=== PATIENT | female | born 1955 | race Hispanic/Latino ===

== ENCOUNTER 2016-11-11 16:43 | Observation (INO) | payer SELFPAY ==
[~2016-11-11 16:43] MED LIST: ISOVUE-370 76%-LOCM 1 ML ONE
[2016-11-11] MEDS ORDERED: Ondansetron HCl/PF 4 MG/2 ML Vial ONE (17:16)
[2016-11-11 17:17] LABS: #Lymphocytes 1.4 thou/uL (1.20-3.40); #Monocytes 0.5 thou/uL (0.11-0.59); %Basophils 0.3 % (0.0-1.0); %Eosinophils 0.7 % (0.0-10.0); %Lymphocytes 19.6 % (21.0-51.0); %Monocytes 6.8 % (0.0-10.0); Hematocrit 34.4 % (36.0-47.0); Mean Platelet Volume 7.7 fL (7.4-10.4); Red Blood Cell (RBC) Count 3.73 mill/uL (4.20-5.40); White Blood Cell (WBC) Count 6.9 thou/uL (4.8-10.8)
[2016-11-11 17:39] LABS: Lactic Acid - Sepsis 0.6 mmol/L (0.5-2.2)
[2016-11-11 17:42] LABS: ALT (SGPT) 17 U/L (8-55); AST (SGOT) 23 U/L (5-34); Alkaline Phosphatase 68 U/L (40-150); Anion Gap 14 mmol/L (10-20); BUN (Urea Nitrogen) 38 mg/dL (9.8-20.1); Bilirubin, Total 0.3 mg/dL (0.2-1.2); CK (CPK) 141 U/L (29-168); Calc. Creatinine Clearance 0 mL/min (70-130); Calcium 8.8 mg/dL (7.8-10.44); Carbon Dioxide 26 mmol/L (23-31); Chloride 105 mmol/L (98-107); Estimated GFR-MDRD 41; Globulin 3.5 g/dL (2.4-3.5); Lipase 32 U/L (8-78); Protein, Total 7.1 g/dL (6.0-8.3)
[2016-11-11 17:45] LABS: Troponin I Less than 0.010 ng/mL (< 0.028)
--- NOTE | 2016-11-11 20:32 | CT ---
CT HEAD WITHOUT IV CONTRAST: 11/11/16 HISTORY: Headache and syncope. COMPARISON: 09/07/16. FINDINGS: There is area of encephalomalacia seen within the right occipital lobe as well as posterior right te mporal lobe also noted on the prior study. Although the area of encephalomalacia does appear smaller in size which are likely related to remote infarction. There is no evidence of an acute cortical in farction, hemorrhage, mass effect, or midline shift. Ventricular system is normal in size, shape and position. There is mucosal thickening seen in the lateral ethmoidal air cells, left sphenoid sinus as well as the visualized left maxillary antrum. There is opacification of multiple left mastoid air cells also present on the prior exam. No other interval change. IMPRESSION: 1. No acute intracranial abnormalities demonstrated. 2. Remote infarction in distribution of the right posterior cerebral artery. 3. Sinus disease. 4. Complete opacification of left mastoid air cells also noted on prior exam on 09/07/16. POS: [facility]
--- NOTE | 2016-11-11 20:45 | CT ---
CT ANGIOGRAM THORAX WITH IV CONTRAST AND 3D RECONSTRUCTIONS CT ABDOMEN WITH IV CONTRAST CT PELVIS WITH IV CONTRAST 11/11/16 HISTORY: Dull chest pain. Abdominal bloating, and patient then subsequently developed chest pain. Productive cough. Multiple episodes of diarrhea. CTA THORAX: No filling defects are seen in the pulmonary arteries to suggest a pulmonary embolus. The heart is mildly enlarged with tiny pericardial effusion identified. Vascular calcifications are seen in the thoracic aorta, but the thoracic aorta is normal in caliber without evidence of an aortic dissection. Moderately enlarged right paratracheal lymph nodes are seen. The largest measuring 1.3 cm in short axis dimension. Minimal soft tissue prominence seen in the right hilar region which may also be rela janet to prominent lymph nodes. There is a pulmonary nodule in the left lower lobe measuring 5 mm. No additional pulmonary nodule or mass is seen. There is atelectasis bilaterally. This exam is obtained in expiratory phase of imagin g. IMPRESSION: 1. No CT evidence of a pulmonary embolus. 2. Cardiomegaly with tiny pericardial effusion. 3. Nonspecific mediastinal lymphadenopathy. 4. Approximately 5 mm noncalcified pulmonary nodule left lung base which cannot be further yesenia acterized. CT ABDOMEN AND PELVIS: The heart is enlarged with tiny pericardial effusion as noted above. There is calcification in the m itral valve annulus. Approximately 5 mm pulmonary nodule left lower lobe is present also seen on CT chest. There is an approximately 11 mm low density focus within the mid portion right kidney with smaller l ow density subcentimeter focus in the superior pole right kidney each of which is difficult to jovanna cterize but are probably related to renal cyst. There are scattered areas of mild scarring involving the kidneys bilaterally. There is no hydronephrosis seen. There is slight nonspecific heterogeneity of the liver. The spleen, pancreas, bilateral adrenal glands, urinary bladder, and uterus demonstrate a normal CT appearance for delayed phase of imaging. Post cholecystectomy changes are noted. A 2.5 cm low density cystic structure is seen in the left ovary which demonstrates fluid attenuation consistent with a cyst. There is colonic diverticulosis without CT evidence of diverticulitis. The appendix is normal in [place]. Loops of small bowel are also normal in caliber. Vascular calcifications seen in the abdominal aorta and iliac arteries. There is skin thickening and minimal inflammatory changes seen in the subcutaneous soft tissues righ t anterolateral mid abdomen. Bilateral pars defects are seen at L5. IMPRESSION: 1. No acute findings are seen in the abdomen or pelvis. 2. Difficult to characterize hypodense lesions right kidney with scattered areas of scarring in each kidney. 3. Post cholecystectomy changes. 4. Minimal nonspecific heterogeneity of the liver. 5. Left ovarian cyst. 6. Skin thickening and mild inflammatory changes in the subcutaneous fat right anterolateral mi d abdomen. 7. No CT evidence of appendicitis. 8. Colonic diverticulosis. POS: [facility]
[2016-11-11 21:41] LABS: Troponin I Less than 0.010 ng/mL (< 0.028)
--- NOTE | 2016-11-11 23:18 | HP ---
PRIMARY CARE PHYSICIAN: Dr. Dyan Ordonez. REASON FOR ADMISSION: Chest pain and syncope. HISTORY OF PRESENT ILLNESS: A 60-year-old female with a history of hypertension, diabetes type 2, dyslipidemia, chronic kidney disease stage 3, who came to the emergency room for evaluation of left-sided chest pain, which started today around 12 noon when she was resting. She was having p redominantly left-sided lower chest pain, which was not related with food, respiration, or activity. She was having mild cough with productive of yellowish sputum, but no fever and no hemoptysis. e denies any calf tenderness. She does reports that she has diarrhea whenever she eats, but that is not a new symptom for her. She reports that yesterday she had couple of times episode of syncope/d izziness. She was not having any fever, chills. She denies any UTI symptoms. She denies any recen t travel. She denies any flu-like illness. She denies any viral infection. She denies any orthopn ea, PND or leg swelling. Her intensity of pain is about 7/10. The patient was also having headache , bloating. The patient also described her symptoms in the emergency room pleuritic in nature and t hat is why CT angio was done, which was negative for pulmonary embolism, but it showed cardiomegaly with tiny pericardial effusion and pulmonary nodule on the left lung. The patient also had CT of e abdomen and pelvis, which was also negative for any acute process. Her CT brain was also negative . At this point, the patient is being admitted for further evaluation. REVIEW OF SYSTEMS: The following complete review of systems was negative, unless otherwise mentio olena in the HPI or below: Constitutional: Weight loss or gain, ability to conduct usual activities. Skin: Rash, itching. Eyes: Double vision, pain. ENT/Mouth: Nose bleeding, neck stiffness, pain, tenderness. Cardiovascular: Palpitations, dyspnea on exertion, orthopnea. Respiratory: Shortness of breath, wheezing, cough, hemoptysis, fever or night sweats. Gastrointestinal: Poor appetite, abdominal pain, heartburn, nausea, vomiting, constipation, or diar rose. Genitourinary: Urgency, frequency, dysuria, nocturia. Musculoskeletal: Pain, swelling. Neurologic/Psychiatric: Anxiety, depression. Allergy/Immunologic: Skin rash, bleeding tendency. Please see my HPI for pertinent positive and negative. All other review of system reviewed and nega tive except as mentioned in the HPI. PAST MEDICAL HISTORY: Diabetes type 2, insulin-requiring; hypertension; dyslipidemia. History of r ight-sided ischemic CVA in 2012, the patient also had another CVA in 08/2016. PAST SURGICAL HISTORY: Cholecystectomy, right shoulder cyst removed. PAST PSYCHIATRIC HISTORY: Reviewed and negative. SOCIAL HISTORY: The patient lives at home by herself. No history of tobacco, alcohol or illicit dr ug abuse. FAMILY HISTORY: Diabetes runs among several family members. ALLERGIES: MORPHINE and IBUPROFEN. EMERGENCY ROOM COURSE: The patient was given morphine 4 mg, Zofran 4 mg, and IV fluid. CURRENT HOME MEDICATIONS: Hydrochlorothiazide 25 mg p.o. daily, hydralazine 50 mg 3 times daily, as pirin 81 mg p.o. daily, oxybutynin 5 mg p.o. b.i.d., quinapril 40 mg p.o. daily, pravastatin 80 mg p .o. at bedtime, Plavix 75 mg p.o. daily, Coreg 25 mg twice daily, Lasix 20 mg p.o. daily, Levsin 0.1 5 mg 1 tablet q.8 hourly p.r.n. PHYSICAL EXAMINATION: VITAL SIGNS: On arrival, blood pressure 114/83, pulse 71, respiratory rate 16, temperature 98.1, sa turation 97% on room air, weight 75.3 kilograms. GENERAL: The patient is currently alert, awake, no obvious acute distress. HEENT: Head normocephalic, atraumatic. Eyes: Pupils round, reactive to light. Extraocular muscle s intact. ENT: Oropharynx within normal limits. Moist mucous membranes. No oral lesions. No pha ryngeal erythema. No exudate. NECK: Supple. Range of motion is normal. No meningeal signs of irritation. LUNGS: Clear to auscultation without any rhonchi or rales. CARDIAC: S1, S2 regular without any murmur. Chest wall: No reproducible pain. ABDOMEN: The patient does have left upper quadrant discomfort. No peritoneal sign, no suprapubic d iscomfort. BACK: Unremarkable, no CVA tenderness. EXTREMITIES: Upper extremities: Passive movement of all joints are normal. Lower extremities: No edema, no calf tenderness. Good peripheral pulsation. NEUROLOGIC: Nonfocal examination. The patient moves all 4 limbs. Plantar bilateral flexor. PSYCHIATRIC: Normal affect. SIGNIFICANT LABORATORY DATA: EKG based on my review, normal sinus rhythm, within normal limits. CT brain based on my review, no acute intracranial process. CT angio showing no evidence of PE, disse ction, tiny pericardial effusion, bibasilar atelectasis. CT of the abdomen and pelvis showing diver ticulosis, no appendicitis, left ovarian cyst, heterogeneity of the liver. CBC: WBC 6.9, hemoglobi n 10.8, platelet 275. BMP: Sodium 141, potassium 3.8, chloride 105, carbon dioxide 26, BUN 38, cre atinine 1.33, glucose 133, calcium 8.8, lactic acid 0.6. LFT: AST 23, ALT 17, alkaline phosphatase 68, albumin 3.6. CK 141, CK-MB 2.2, troponin I less than 0.010 and second enzyme is also negative. Lipase 32. ASSESSMENT AND PLAN/IMPRESSION: 1. Chest pain, left-sided. Left upper quadrant abdominal pain. CT angio already negative for pulm onary embolism. CT of the abdomen and pelvis was also negative for any acute process. At this poin t, EKG is completely normal. Her Cardiac enzymes negative x2. Her description of pain also does no t appear to be anginal pain. Given her several risk factors for coronary artery disease, the patien t will need observation. She already had echocardiography in 08/2016, which showed moderate tricusp id regurgitation with normal EF. At this point, we will perform exercise Cardiolite stress test. H er last stress test in 2015 was normal. We will check lipid profile for risk stratification. If st ress is negative, then we will consider discharging her home tomorrow. Meanwhile, we will continue with aspirin 325 mg p.o. daily, nitropatch q.8 hourly, Pepcid 20 mg p.o. b.i.d. 2. Syncope. The patient reported 2 episodes of syncopal episode yesterday, most likely orthostatic hypotension versus nonspecific unexplained symptoms. We will monitor on telemetry floor. Her echo cardiography was recently done, which was unremarkable. We are doing stress test for further evalua tion. We will check orthostatic vitals to rule out any orthostatic hypotension. 3. Hypertension. We will resume patient's home medications with quinapril 40 mg p.o. daily and hyd rochlorothiazide 25 mg p.o. daily. 4. Diabetes type 2. We will resume patient's home dose of insulin therapy. 5. Dyslipidemia. We will continue pravastatin 80 mg equivalent while in hospital. 6. History of cerebrovascular accident. We will continue aspirin and Plavix as per home dosage allan ng with statin therapy and other antihypertensive medication. 7. Chronic kidney disease stage 3. Renal function is stable. We will monitor renal function. 8. Anemia, normocytic, normochromic. She is advised to take over the counter iron supplement and m ultivitamin. 9. Deep venous thrombosis prophylaxis not needed, because we are expecting discharge in 24 hours. 10. Gastrointestinal prophylaxis, Pepcid 20 mg p.o. b.i.d. 11. Code status: The patient is FULL CODE. The patient does not have any surrogate decision maker . Disposition plan based on above-mentioned investigation results, likely within 24 hours.
[2016-11-11] MEDS ORDERED: Dextrose 50% Abboject 50 ML SYRINGE SLOW IVP PRN (23:25)
[2016-11-11] MEDS ORDERED: HumaLOG 300 UNITS/3 ML VIAL SC PRN ×2 (23:25)
[2016-11-11] MEDS ORDERED: Senokot 8.6 MG TAB PO PRN (23:25)
[2016-11-11] MEDS ORDERED: Ondansetron ODT 4 MG TAB PO PRN (23:25)
[2016-11-11] MEDS ORDERED: Loperamide HCl 2 MG CAP PO PRN (23:25)
[2016-11-11] MEDS ORDERED: Dextrose 5% in Water 1,000 ML IV PRN (23:25)
[2016-11-11] MEDS ORDERED: Zolpidem Tartrate 5 MG TAB PO PRN (23:25)
[2016-11-11] MEDS ORDERED: Milk Of Magnesia 30 ML UDCUP PO PRN (23:25)
[2016-11-11] MEDS ORDERED: Mag-Al 1200 mg/1200 mg/30 ML UDCUP PO PRN (23:25)
[2016-11-11] MEDS ORDERED: Ondansetron HCl/PF 4 MG/2 ML Vial IVP PRN (23:25)
[2016-11-11] MEDS ORDERED: Acetaminophen 325 MG TAB PO PRN (23:25)
[2016-11-11] MEDS ORDERED: Aspirin 325 MG TAB PO SCH (23:30)
[2016-11-12] MEDS: Nitroglycerin 2% Ointment 1 INCH/1 GM Packet TOP SCH ×3 (00:09→15:25)
[2016-11-12 01:23] VITALS: BMI 32.0
[2016-11-12] MEDS ORDERED: Aspirin 325 MG TAB PO SCH (08:00)
[2016-11-12] MEDS ORDERED: Carvedilol 25 MG TAB PO SCH (09:00)
[2016-11-12] MEDS ORDERED: Clopidogrel Bisulfate 75 MG TAB PO SCH (09:00)
[2016-11-12] MEDS ORDERED: Furosemide 20 MG TAB PO SCH (09:00)
[2016-11-12] MEDS ORDERED: Famotidine 20 MG TAB PO SCH (09:00)
[2016-11-12] MEDS ORDERED: Hydrochlorothiazide 25 MG TAB PO SCH (09:00)
[2016-11-12] MEDS ORDERED: Aspirin 81 mg Enteric Coated Tablet PO SCH (09:00)
--- NOTE | 2016-11-12 11:19 | CT ---
CT ANGIOGRAM THORAX WITH IV CONTRAST AND 3D RECONSTRUCTIONS CT ABDOMEN WITH IV CONTRAST CT PELVIS WITH IV CONTRAST 11/11/16 HISTORY: Dull chest pain. Abdominal bloating, and patient then subsequently developed chest pain. Productive cough. Multiple episodes of diarrhea. CTA THORAX: No filling defects are seen in the pulmonary arteries to suggest a pulmonary embolus. The heart is mildly enlarged with tiny pericardial effusion identified. Vascular calcifications are seen in the thoracic aorta, but the thoracic aorta is normal in caliber without evidence of an aortic dissection. Moderately enlarged right paratracheal lymph nodes are seen. The largest measuring 1.3 cm in short axis dimension. Minimal soft tissue prominence seen in the right hilar region which may also be rela janet to prominent lymph nodes. There is a pulmonary nodule in the left lower lobe measuring 5 mm. No additional pulmonary nodule or mass is seen. There is atelectasis bilaterally. This exam is obtained in expiratory phase of imagin g. IMPRESSION: 1. No CT evidence of a pulmonary embolus. 2. Cardiomegaly with tiny pericardial effusion. 3. Nonspecific mediastinal lymphadenopathy. 4. Approximately 5 mm noncalcified pulmonary nodule left lung base which cannot be further javid racterized. CT ABDOMEN AND PELVIS: The heart is enlarged with tiny pericardial effusion as noted above. There is calcification in the m itral valve annulus. Approximately 5 mm pulmonary nodule left lower lobe is present also seen on CT chest. There is an approximately 11 mm low density focus within the mid portion right kidney with smaller l ow density subcentimeter focus in the superior pole right kidney each of which is difficult to jovanna cterize but are probably related to renal cyst. There are scattered areas of mild scarring involving the kidneys bilaterally. There is no hydronephrosis seen. There is slight nonspecific heterogeneity of the liver. The spleen, pancreas, bilateral adrenal glands, urinary bladder, and uterus demonstrate a normal CT appearance for delayed phase of imaging. Post cholecystectomy changes are noted. A 2.5 cm low density cystic structure is seen in the left ovary which demonstrates fluid attenuation consistent with a cyst. There is colonic diverticulosis without CT evidence of diverticulitis. The appendix is normal in [place]. Loops of small bowel are also normal in caliber. Vascular calcifications seen in the abdominal aorta and iliac arteries. There is skin thickening and minimal inflammatory changes seen in the subcutaneous soft tissues righ t anterolateral mid abdomen. Bilateral pars defects are seen at L5. IMPRESSION: 1.No acute findings are seen in the abdomen or pelvis. 2. Difficult to characterize hypodense lesions right kidney with scattered areas of scarring in each kidney. 3.Post cholecystectomy changes. 4.Minimal nonspecific heterogeneity of the liver. 5.Left ovarian cyst. 6. Skin thickening and mild inflammatory changes in the subcutaneous fat right anterolateral mi d abdomen. 7.No CT evidence of appendicitis. 8.Colonic diverticulosis.
--- NOTE | 2016-11-12 15:01 | NM ---
CARIDAC SPECT: HISTORY: A 60-year-old female with chest pain, hypertension, diabetes, dyslipidemia. TECHNIQUE: A myocardial perfusion scan was performed using the single-isotope 2-day protocol with 30 mCi Techne tium 99m sestamibi. Pharmacologic stress with adenosine is monitored and interpreted by Dolores Abraham NP. FINDINGS: There is a partial thickness fixed defect in the lateral wall. No reversible defects are identified . GATED SPECT LVEF: 62%. WALL MOTION EXAM: Normal. IMPRESSION: No evidence of reversible ischemia. POS: [facility]
[2016-11-12] MEDS ORDERED: Sodium Chloride 0.9% 500 ML IV SCH (15:45)
[2016-11-12 15:51] VITALS: BP 139/64; TEMP 98.5
[2016-11-12] MEDS ORDERED: ADENOSINE 60 MG/20 ML VIAL ONE (16:19)
--- NOTE | 2016-11-12 17:20 | DIS ---
DATE OF DISCHARGE: 11/12/2016 DISCHARGE DISPOSITION: Home. FOLLOWUP: 1. Follow up with primary care physician at [facility] in 1 week. 2. Follow up with Nephrology, Dr. Noel is recommended. Primary care physician is advised to fol low. 3. Base met in 3 days is recommended. Primary care physician is advised to follow. ALLERGIES: IBUPROFEN. DISCHARGE MEDICATIONS: 1. Aspirin 81 mg daily. 2. Carvedilol 25 mg b.i.d. 3. Plavix 75 mg daily. 4. Levsin as needed. 5. Levemir insulin 20 units b.i.d. 6. Oxybutynin 5 mg b.i.d. 7. Pravastatin 80 mg q.p.m. 8. Hydralazine 50 mg t.i.d. INPATIENT CONSULTANTS: None. The patient was seen and examined on the day of discharge. Denies any new complaints. No chest wong n, shortness of breath, or palpitations. BRIEF HOSPITAL COURSE: Patient is a 60-year-old female with hypertension, diabetes mellitus type 2, dyslipidemia, CKD stage 3, and CVA. Earlier this year, presented to the hospital with chest pain a nd syncope. Please note that diuretics were discontinued 2 months ago when she had CVA. Please ref er to the history and physical dated 11/11/2016 for further details. The patient was admitted to the hospital with a diagnosis of chest pain with syncope. Serial cardia c enzymes were normal. She underwent a Cardiolite stress test that was negative for reversible isch emia. CT angiogram of the chest was negative for pulmonary embolism. It showed some nonspecific 5- mm noncalcified pulmonary nodule in the left lung. Primary care physician is advised to follow. CT abdomen in the emergency room was also negative. She recently had an echocardiogram that showed no rmal left ventricular ejection fraction of 55% to 60% with mild to moderate tricuspid regurgitation. She was advised to discontinue TRUDI inhibitor temporary due to renal failure. Her creatinine on ad mission was 1.33 with a baseline creatinine of 0.86. She was also advised to hold diuretics for now . Daily weights with as needed diuretics was advised. She appears stable for discharge. FINAL DIAGNOSES: 1. Chest discomfort, acute coronary syndrome ruled out. 2. Syncope secondary to dehydration. Orthostatic vitals were negative. 3. History of cerebrovascular earlier this year. 4. Diabetes mellitus type 2. 5. Hypertension. 6. Dyslipidemia. 7. Acute kidney injury on chronic kidney disease stage 2. 8. Obesity with a body mass index of 32.4. 9. Chronic anemia. Plan of care was discussed with the patient. She stated understanding.
[2016-11-12] MEDS ORDERED: Insulin Detemir 100 UNITS/ML 20 UNITS in Pre-Filled Syringe 1 EACH SC SCH (21:00)
[2016-11-12] MEDS ORDERED: Atorvastatin Calcium 20 MG TAB PO SCH (21:00)
== END 2016-11-12 16:50 | disposition home or self-care (01) ==
LOC: ERS 16:43 → 2SW 20:00
PROVIDERS: ADMIT Family Medicine; ATTEND Family Medicine
DX: R07.89 Other chest pain (principal); R55 Syncope and collapse; E86.0 Dehydration; E78.5 Hyperlipidemia, unspecified; E11.22 Type 2 diabetes mellitus with diabetic chronic kidney disease; I13.10 Hypertensive heart and chronic kidney disease without heart failure, with stage 1 through stage 4 chronic kidney disease, or unspecified chronic kidney disease; N18.3 Chronic kidney disease, stage 3 (moderate); N17.9 Acute kidney failure, unspecified; D64.9 Anemia, unspecified; R10.12 Left upper quadrant pain; I31.3 Pericardial effusion (noninflammatory); R59.1 Generalized enlarged lymph nodes; R91.1 Solitary pulmonary nodule; I34.8 Other nonrheumatic mitral valve disorders; K57.30 Diverticulosis of large intestine without perforation or abscess without bleeding; E66.9 Obesity, unspecified; Z68.32 Body mass index [BMI] 32.0-32.9, adult; Z79.82 Long term (current) use of aspirin; Z79.4 Long term (current) use of insulin; Z79.02 Long term (current) use of antithrombotics/antiplatelets; Z79.899 Other long term (current) drug therapy; Z88.6 Allergy status to analgesic agent; Z88.5 Allergy status to narcotic agent; Z86.73 Personal history of transient ischemic attack (TIA), and cerebral infarction without residual deficits
CPT/HCPCS: 36415; 36416; 70450; 71275; 74177; 78452; 80053; 80061; 82550; 82553; 83605; 83690; 84484; 85025; 93005; 93017; 94760; 96374; 96375; A9500; G0378; J0153; J1815; J2270; J2405

== ENCOUNTER 2016-11-26 23:13 | Emergency (ER) | payer SELFPAY ==
[2016-11-27 00:16] LABS: #Eosinphils 0.1 thou/uL (0.0-0.7); #Lymphocytes 1.7 thou/uL (1.20-3.40); #Monocytes 0.5 thou/uL (0.11-0.59); #Neutrophils 3.7 thou/uL (1.40-6.50); %Basophils 0.3 % (0.0-1.0); %Eosinophils 1.8 % (0.0-10.0); %Lymphocytes 27.9 % (21.0-51.0); %Monocytes 8.4 % (0.0-10.0); Hematocrit 31.9 % (36.0-47.0); Mean Platelet Volume 7.1 fL (7.4-10.4); Red Blood Cell (RBC) Count 3.46 mill/uL (4.20-5.40)
[2016-11-27 00:24] LABS: Bilirubin Negative (Negative); Blood, Urine Negative (Negative); Glucose, Urine (Dipstick) Negative (Negative); Ketone, Urine Negative (Negative); Nitrite Negative (Negative); Protein, Urine (Dipstick) 100 mg/dL (Neg-Trace); Urobilinogen 0.2 mg/dL (0.2-1.0)
[2016-11-27 00:27] LABS: Bacteria/HPF None Seen HPF (None Seen); Hyaline Casts/LPF 0-3 HYALINE CAST LPF (0-3 Hyaline); RBC/HPF 0-3 HPF (0-3); Squamous Epithelial 0-3 HPF (0-3); WBC/HPF 0-3 HPF (0-3)
[2016-11-27 00:38] LABS: Troponin I Less than 0.010 ng/mL (< 0.028)
[2016-11-27 00:40] LABS: ALT (SGPT) 22 U/L (8-55); AST (SGOT) 21 U/L (5-34); Alkaline Phosphatase 69 U/L (40-150); Anion Gap 12 mmol/L (10-20); BUN (Urea Nitrogen) 21 mg/dL (9.8-20.1); Bilirubin, Total 0.4 mg/dL (0.2-1.2); CK (CPK) 309 U/L (29-168); Calc. Creatinine Clearance 0 mL/min (70-130); Calcium 8.6 mg/dL (7.8-10.44); Carbon Dioxide 24 mmol/L (23-31); Chloride 109 mmol/L (98-107); Estimated GFR-MDRD 62; Globulin 3.2 g/dL (2.4-3.5); Lipase 21 U/L (8-78); Protein, Total 6.8 g/dL (6.0-8.3)
--- NOTE | 2016-11-27 07:46 | RAD ---
SINGLE VIEW OF CHEST: Date: 11/26/16 COMPARISON: 03/08/15. HISTORY: Hypoglycemia and altered mental status. FINDINGS: Single view of the chest shows a normal sized cardiomediastinal silhouette. There is no evidence of consolidation, mass, or pleural effusion. The bones are unremarkable. IMPRESSION: No evidence of acute cardiopulmonary disease. POS: [facility]
--- NOTE | 2016-11-28 14:38 | EKG ---
Test Reason : Blood Pressure : / mmHG Vent. Rate : 060 BPM Atrial Rate : 060 BPM P-R Int : 136 ms QRS Dur : 074 ms QT Int : 436 ms P-R-T Axes : 062 003 039 degrees QTc Int : 436 ms Normal sinus rhythm Cannot rule out Anterior infarct , age undetermined Abnormal ECG Confirmed by CADENCE CROWE, PARAG ([id number]), video editor MICHEL VEGA ([id number]) on 11/28/2016 2:38:03 PM Referred By: Confirmed By:PARAG VILA MD
== END 2016-11-27 01:12 | disposition home or self-care (01) ==
LOC: ERS 23:13
DX: E11.649 Type 2 diabetes mellitus with hypoglycemia without coma (principal); E78.5 Hyperlipidemia, unspecified; I10 Essential (primary) hypertension; Z86.73 Personal history of transient ischemic attack (TIA), and cerebral infarction without residual deficits
CPT/HCPCS: 36415; 36416; 71010; 80053; 81003; 81015; 82550; 82553; 83690; 83880; 84484; 85025; 93005

== ENCOUNTER 2017-02-01 22:40 | Observation (INO) | payer SELFPAY ==
[2017-02-01 23:05] LABS: #Basophils 0.1 thou/uL (0.0-0.2); #Eosinphils 0.2 thou/uL (0.0-0.7); #Lymphocytes 2.4 thou/uL (1.20-3.40); #Monocytes 0.4 thou/uL (0.11-0.59); #Neutrophils 3.7 thou/uL (1.40-6.50); %Basophils 0.8 % (0.0-1.0); %Eosinophils 3.1 % (0.0-10.0); %Lymphocytes 35.1 % (21.0-51.0); %Monocytes 5.4 % (0.0-10.0); %Neutrophils 55.6 % (42.0-75.0); Hemoglobin 12.2 g/dL (12.0-16.0); Mean Corpuscular Hemoglobin 29.3 pg (27.0-31.0); Mean Corpuscular Volume 88.7 fl (81.0-99.0); Mean Platelet Volume 7.7 fL (7.4-10.4); Platelet Count 268 thou/uL (130-400); RBC Distribution Width 14.3 % (11.5-14.5); Red Blood Cell (RBC) Count 4.15 mill/uL (4.20-5.40); White Blood Cell (WBC) Count 6.7 thou/uL (4.8-10.8)
[2017-02-01 23:28] LABS: ALT (SGPT) 32 U/L (8-55); AST (SGOT) 29 U/L (5-34); Albumin 3.8 g/dL (3.4-4.8); Alkaline Phosphatase 89 U/L (40-150); Anion Gap 11 mmol/L (10-20); BUN (Urea Nitrogen) 43 mg/dL (9.8-20.1); Bilirubin, Total 0.3 mg/dL (0.2-1.2); Calc. Creatinine Clearance 0 mL/min (70-130); Calcium 9.2 mg/dL (7.8-10.44); Carbon Dioxide 31 mmol/L (23-31); Chloride 102 mmol/L (98-107); Estimated GFR-MDRD 42; Globulin 3.8 g/dL (2.4-3.5); Glucose 110 mg/dL (80-115); Potassium 4.4 mmol/L (3.5-5.1); Protein, Total 7.6 g/dL (6.0-8.3); Sodium 140 mmol/L (136-145)
[2017-02-01 23:31] LABS: CKMB 1.3 ng/mL (0-6.6); Troponin I 0.014 ng/mL (< 0.028)
--- NOTE | 2017-02-01 23:55 | RAD ---
TWO VIEWS CHEST: Date: 02-01-17 Provided Clinical History: Chest pain. FINDINGS: Comparison 09-07-16. Cardiac and mediastinal silhouette is unchanged in appearance. Atherosclerosis in volves the aortic arch. No focal consolidation, pleural fluid, or pneumothorax apparent. IMPRESSION: No evidence for acute cardiopulmonary process. POS: [facility]
[2017-02-02] MEDS ORDERED: Enoxaparin Sodium 80 MG/0.8 ML SYRINGE ONE (01:08)
[2017-02-02 03:03] LABS: Troponin I 0.011 ng/mL (< 0.028)
[2017-02-02 05:52] LABS: Troponin I 0.019 ng/mL (< 0.028)
[2017-02-02] MEDS ORDERED: Zolpidem Tartrate 5 MG TAB PO PRN (08:52)
[2017-02-02] MEDS ORDERED: Acetaminophen 325 MG TAB PO PRN (08:52)
[2017-02-02] MEDS ORDERED: Ondansetron HCl/PF 4 MG/2 ML Vial IVP PRN (08:52)
[2017-02-02] MEDS ORDERED: HYDROcodone/Acetaminophen 5/325 mg Tablet PO PRN (08:52)
[2017-02-02] MEDS ORDERED: Nitroglycerin 0.4 MG TAB (25 Tab Bottle) PO PRN (08:52)
[2017-02-02] MEDS ORDERED: Senokot 8.6 MG TAB PO PRN (08:52)
[2017-02-02] MEDS ORDERED: Dextrose 50% Abboject 50 ML SYRINGE SLOW IVP PRN (08:52)
[2017-02-02] MEDS ORDERED: Ondansetron ODT 4 MG TAB PO PRN (08:52)
[2017-02-02] MEDS ORDERED: Dextrose 5% in Water 1,000 ML IV PRN (08:52)
[2017-02-02] MEDS ORDERED: Loperamide HCl 2 MG CAP PO PRN (08:52)
[2017-02-02] MEDS ORDERED: Mag-Al 1200 mg/1200 mg/30 ML UDCUP PO PRN (08:52)
[2017-02-02] MEDS ORDERED: HumaLOG 300 UNITS/3 ML VIAL SC PRN ×2 (08:52)
[2017-02-02] MEDS ORDERED: Milk Of Magnesia 30 ML UDCUP PO PRN (08:52)
[2017-02-02] MEDS ORDERED: Famotidine 20 MG TAB PO SCH (09:00)
[2017-02-02] MEDS ORDERED: Clopidogrel Bisulfate 75 MG TAB PO SCH (09:00)
[2017-02-02] MEDS ORDERED: Non-Formulary Item 1 EACH (Oxybutynin Chloride [Oxybutynin Chloride] 5 MG) PO SCH (09:00)
[2017-02-02] MEDS ORDERED: hydrALAZINE 25 MG TAB PO SCH (09:00)
[2017-02-02] MEDS ORDERED: Oxybutynin 5 MG TAB PO SCH (09:00)
[2017-02-02] MEDS ORDERED: Carvedilol 25 MG TAB PO SCH (09:00)
--- NOTE | 2017-02-02 14:58 | SS ---
PRIMARY CARE PHYSICIAN: Dr. Dyan Ordonez. REASON FOR ADMISSION: Chest pain. DATE OF ADMISSION: 02/02/2017 at 1:00 a.m. DATE OF DISCHARGE: 02/02/2017 at 10:00 a.m. HISTORY OF PRESENT ILLNESS: The patient is a 61-year-old female with history of hypertensio n and dyslipidemia, who presented to emergency room with complaint of chest pain, which was started y ester evening. Her chest pain description was atypical. She was pointing on her left side pain u nderneath of breast, which was reproducible and constant pain since this started yesterday evening ar ound 4:00 p.m. The patient denies any relation of chest pain with food, respiration but with movemen t and with deep palpation on the breast, it was hurting. She did not have any fever or chills. She denies any cough. She denies any nausea, vomiting, diaphoresis. She denies any palpitations, dizzin ess, or shortness of breath. With these symptoms, she presented to emergency room and her pain was persistent up until this mornin g. The patient was having reproducible pain on the left side of chest. This patient already had neg ative stress test done in 10/2016. This patient already had 3 sets of cardiac enzymes negative and h er EKG is unremarkable as well as her troponin is negative. REVIEW OF SYSTEMS: The following complete review of systems was negative, unless otherwise mentioned in the HPI or below: Constitutional: Weight loss or gain, ability to conduct usual activities. Skin: Rash, itching. Eyes: Double vision, pain. ENT/Mouth: Nose bleeding, neck stiffness, pain, tenderness. Cardiovascular: Palpitations, dyspnea on exertion, orthopnea. Respiratory: Shortness of breath, wheezing, cough, hemoptysis, fever or night sweats. Gastrointestinal: Poor appetite, abdominal pain, heartburn, nausea, vomiting, constipation, or diarrh ea. Genitourinary: Urgency, frequency, dysuria, nocturia. Musculoskeletal: Pain, swelling. Neurologic/Psychiatric: Anxiety, depression. Allergy/Immunologic: Skin rash, bleeding tendency. Please see my HPI for pertinent positives and negatives. All other review of systems reviewed and ne gative except as mentioned in the HPI. PAST MEDICAL HISTORY: Diabetes type 2, insulin requiring, hypertension, dyslipidemia, history of CVA in 2012. The patient also had another CVA in 2017. PAST SURGICAL HISTORY: Cholecystectomy, right shoulder cyst removed. PAST PSYCHIATRIC HISTORY: Reviewed and negative. SOCIAL HISTORY: The patient lives at home by herself. No history of tobacco, alcohol or illicit charlene g abuse. FAMILY HISTORY: Diabetes runs among several family members. ALLERGIES: MORPHINE and IBUPROFEN. EMERGENCY ROOM COURSE: The patient is given aspirin and Lovenox 1 mg per kg. CURRENT HOME MEDICATION: Pravastatin 80 mg p.o. at bedtime, Lasix 40 mg p.o. b.i.d., quinapril 40 mg p.o. daily, oxybutynin 5 mg p.o. b.i.d., Plavix 75 mg p.o. daily, aspirin 81 mg p.o. daily, and Card izem 60 mg p.o. t.i.d. PHYSICAL EXAMINATION: VITAL SIGNS: On arrival, blood pressure 168/73, pulse 68, respiratory rate 18, temperature 98.0, sat uration 98% on room air, weight 67.5 kilograms. GENERAL: The patient is currently alert, oriented, no acute distress. HEAD: Normocephalic, atraumatic. EYES: Pupils round, reactive to light. Extraocular muscles intact. ENT: Oropharynx within normal limits. Moist mucous membranes, no oral lesion, no pharyngeal erythem a. No exudate. NECK: Supple, no JVD, no thyromegaly, no carotid bruit. No meningeal signs of irritation. LUNGS: Clear to auscultation without any rhonchi or rales. CARDIAC: S1 and S2 regular. No murmur, no gallop, no rub. ABDOMEN: Soft, bowel sounds present, nontender, nondistended. No organomegaly, no mass, no suprapub ic tenderness. BACK: Unremarkable. No CVA tenderness. EXTREMITIES: Upper extremity passive movement of all joints are normal. Lower extremity, no edema. Good peripheral pulsation. No calf tenderness. SKIN: No skin rash. HEMATOLOGIC: No lymphadenopathy. PSYCHIATRIC: Normal affect. SIGNIFICANT LABORATORY DATA: EKG showing normal sinus rhythm within normal limits. Chest x-ray base d on my review, no acute cardiopulmonary process. CBC: WBC 6.7, hemoglobin 12.2, platelet 268. BMP : Sodium 140, potassium 4.4, chloride 102, carbon dioxide 31, BUN 43, creatinine 1.28, glucose 110, calcium 9.2. LFT: AST 29, ALT 32, alkaline phosphatase 89, albumin 3.8. Cardiac enzymes negative x3. Lipase 42. ASSESSMENT AND PLAN: 1. Chest pain. The patient does have left-sided reproducible pain, likely musculoskeletal. The pat ient has negative cardiac enzymes x3 and EKG is normal and telemetry remained unremarkable. Her desc ription of pain is completely nonanginal. She already had negative stress test in 10/2016. At this point, this patient does not need any further evaluation. The patient will be discharged home from e mergency room. 2. Hypertension. The patient will continue all her previous medication including Coreg. I prescrib ed Cardizem 60 mg t.i.d. because she ran out of that medication. She will resume her hydralazine. 3. Diabetes type 2. The patient will continue her insulin as per home dosage. Currently, diabetes is well controlled. 4. Dyslipidemia. We will continue pravastatin 80 mg p.o. at bedtime. 5. Chronic kidney disease stage 3. The patient is advised to reduce Lasix to 40 mg daily only. 6. Deep venous thrombosis prophylaxis not needed because we are expecting discharge today. 7. Gastroi ntestinal prophylaxis. Pepcid 20 mg p.o. b.i.d. 8. Code status: The patient is FULL CODE. Patient does not have any surrogate decision maker. 9. Disposition and plan today. DATE OF ADMISSION: 02/02/2017 at 1:00 a.m. DATE OF DISCHARGE: 02/02/2017 at 10:00 a.m. DISCHARGE DISPOSITION: Home. PRIMARY DISCHARGE DIAGNOSIS: Chest pain, ruled out acute coronary syndrome, likely due to musculoske letal. SECONDARY DISCHARGE DIAGNOSES: Hypertension, diabetes type 2, dyslipidemia, history of cerebrovascul ar accident. PRIMARY PROCEDURES/OPERATION: None. RADIOLOGICAL INVESTIGATION: Chest x-ray normal. SIGNIFICANT LABORATORY DATA: CBC normal. BMP showed creatinine 1.28. Cardiac enzymes negative. LF Ts normal. DISCHARGE MEDICATION: Aspirin 81 mg p.o. daily, Coreg 25 mg p.o. b.i.d., Plavix 75 mg p.o. daily, Ca rdizem 60 mg t.i.d., Lasix 40 mg p.o. daily, hydralazine 50 mg t.i.d., Levemir insulin 20 units subcu b.i.d., oxybutynin 5 mg p.o. b.i.d., and pravastatin 80 mg p.o. at bedtime. CONTRAINDICATIONS: None. CODE STATUS: FULL CODE. INPATIENT CONSULTANTS: None. ALLERGIES: IBUPROFEN, MORPHINE. TEST RESULTS PENDING ON DISCHARGE: None. DISCHARGE PLAN: Post hospital, the patient will follow up with primary care physician in 1 week. HOSPITAL COURSE: The patient was admitted for chest pain. Her chest pain description was nonanginal . Her description was consistent with musculoskeletal chest pain, we ruled out cardiac etiology with negative cardiac enzymes and she already had a negative stress test recently and that is why she did not require any further evaluation. The patient ran out some medication which was sent to her pharm acy. The patient was admitted and discharged on the same day.
[2017-02-02] MEDS ORDERED: Atorvastatin Calcium 10 MG TAB PO SCH (21:00)
[2017-02-02] MEDS ORDERED: Insulin Detemir 100 UNITS/ML 20 UNITS in Pre-Filled Syringe 1 EACH SC SCH (21:00)
[2017-02-03] MEDS ORDERED: Insulin Detemir 100 UNITS/ML 20 UNITS in Pre-Filled Syringe 1 EACH SC SCH (09:00)
[2017-02-03] MEDS ORDERED: Aspirin 325 MG TAB PO SCH (09:00)
--- NOTE | 2017-03-03 14:53 | EKG ---
Test Reason : CHEST PAIN Blood Pressure : / mmHG Vent. Rate : 070 BPM Atrial Rate : 070 BPM P-R Int : 122 ms QRS Dur : 078 ms QT Int : 392 ms P-R-T Axes : 049 -05 048 degrees QTc Int : 423 ms Normal sinus rhythm Normal ECG Confirmed by NADEGE DSOUZA ([id number]), non linear editor MICHEL VEGA ([id number]) on 03/03/2017 2:53:33 PM Referred By: TRIAGE Confirmed By:NADEGE DSOUZA
== END 2017-02-02 10:35 | disposition home or self-care (01) ==
LOC: ERS 22:40 → ERHOLD 02-02 01:06
PROVIDERS: ADMIT Internal Medicine Addiction Medicine; ATTEND Internal Medicine Addiction Medicine
DX: R07.9 Chest pain, unspecified (principal); E78.5 Hyperlipidemia, unspecified; I12.9 Hypertensive chronic kidney disease with stage 1 through stage 4 chronic kidney disease, or unspecified chronic kidney disease; E11.22 Type 2 diabetes mellitus with diabetic chronic kidney disease; N18.3 Chronic kidney disease, stage 3 (moderate); Z86.73 Personal history of transient ischemic attack (TIA), and cerebral infarction without residual deficits; Z79.4 Long term (current) use of insulin; Z79.02 Long term (current) use of antithrombotics/antiplatelets; Z79.82 Long term (current) use of aspirin; Z79.899 Other long term (current) drug therapy; Z88.6 Allergy status to analgesic agent; Z88.5 Allergy status to narcotic agent; Z90.49 Acquired absence of other specified parts of digestive tract; Z98.890 Other specified postprocedural states
CPT/HCPCS: 36415; 36416; 71020; 80053; 82553; 83690; 84484; 85025; 93005; 96372; J1650; J1815

== ENCOUNTER 2017-07-14 05:38 | Emergency (ER) | payer SELFPAY ==
[2017-07-14 06:21] LABS: Bilirubin Negative (Negative); Blood, Urine Small (Negative); Clarity CLOUDY (Clear); Glucose, Urine (Dipstick) 100 mg/dL (Negative); Leukocyte Moderate (Negative); Nitrite Negative (Negative); Protein, Urine (Dipstick) > or equal to 300 mg/dL (Neg-Trace); Specific Gravity, Urine 1.019 (1.002-1.036); Urobilinogen 0.2 mg/dL (0.2-1.0)
[2017-07-14 06:24] LABS: Bacteria/HPF 4+ HPF (None Seen); Squamous Epithelial 0-3 HPF (0-3)
[2017-07-14 06:43] LABS: Pathc Cast-AUWi Flag 2.61 (0-2.49)
[2017-07-14 07:03] LABS: Hyaline Casts/LPF 0-3 HYALINE CAST LPF (0-3 Hyaline); RBC/HPF 0-3 HPF (0-3)
[2017-07-14] MEDS ORDERED: Morphine 4 MG/ML VIAL ONE (08:21)
[2017-07-14 08:37] LABS: #Eosinphils 0.3 thou/uL (0.0-0.7); #Lymphocytes 1.6 thou/uL (1.20-3.40); #Monocytes 0.3 thou/uL (0.11-0.59); #Neutrophils 5.3 thou/uL (1.40-6.50); %Basophils 0.3 % (0.0-1.0); %Eosinophils 4.5 % (0.0-10.0); %Lymphocytes 21.2 % (21.0-51.0); %Monocytes 4.5 % (0.0-10.0); %Neutrophils 69.5 % (42.0-75.0); Hemoglobin 11.4 g/dL (12.0-16.0); Mean Corpuscular HGB CONC 31.9 g/dL (32.0-36.0); Mean Corpuscular Hemoglobin 27.6 pg (27.0-31.0); Mean Corpuscular Volume 86.5 fl (81.0-99.0); Mean Platelet Volume 7.3 fL (7.4-10.4); Platelet Count 294 thou/uL (130-400); RBC Distribution Width 13.5 % (11.5-14.5); Red Blood Cell (RBC) Count 4.12 mill/uL (4.20-5.40); White Blood Cell (WBC) Count 7.6 thou/uL (4.8-10.8)
[2017-07-14 08:57] LABS: ALT (SGPT) 16 U/L (8-55); AST (SGOT) 22 U/L (5-34); Albumin 3.3 g/dL (3.4-4.8); Alkaline Phosphatase 101 U/L (40-150); Anion Gap 12 mmol/L (10-20); BUN (Urea Nitrogen) 17 mg/dL (9.8-20.1); Bilirubin, Total 0.6 mg/dL (0.2-1.2); Calc. Creatinine Clearance 0 mL/min (70-130); Calcium 8.9 mg/dL (7.8-10.44); Carbon Dioxide 26 mmol/L (23-31); Chloride 109 mmol/L (98-107); Estimated GFR-MDRD 50; Globulin 3.8 g/dL (2.4-3.5); Glucose 161 mg/dL (80-115); Potassium 4.5 mmol/L (3.5-5.1); Protein, Total 7.1 g/dL (6.0-8.3); Sodium 142 mmol/L (136-145)
--- NOTE | 2017-07-14 09:52 | CT ---
CT ABDOMEN AND PELVIS WITHOUT IV CONTRAST: Technique: Multiple axial tomograms were obtained through the abdomen and pelvis without IV enhanceme nt. Indications: Abdominal pain. Right flank pain. Comparison: CT abdomen and pelvis, 11-11-16. FINDINGS: Images through the lung bases reveal small bilateral pleural effusions, slightly larger on the right. These have occurred since the prior study of 11-11-16. There may be a small pericardial effusion. The liver, spleen, and pancreas appear unremarkable. Post cholecystectomy changes are noted. Adrenal glands are normal. Kidneys are unremarkable. No hydronephrosis. No evidence of urinary tract calculus. Small bowel loops are normal caliber. The appendix is identified and appears normal. The co rachele is unremarkable. Aorta is normal caliber. There is mesenteric haziness and stranding seen which appear new since the prior exam. Mild stranding is seen in the upper abdomen in the peripancreatic region and there is mesenteric stranding seen in the midabdomen to the right of midline, which his new. Images through the pelvis show unremarkable uterus. There is a left ovarian cystic lesion which was d escribed on the prior exam and appears unchanged, continuing to measure approximately 2.6 cm. Urinary bladder is unremarkable. There is gas in the urinary bladder suggesting recent catheterization. Lauri mmend clinical correlation. There is subcutaneous haziness seen diffusely anteriorly which is new from prior exam and is nonspeci fic. This is seen within the subcutaneous adipose. IMPRESSION: 1. There are new bilateral pleural effusions, slightly larger on the right. I cannot exclude some loc ulation on the right as there is fluid seen in the anterior right chest with right basilar lung atele ctasis. 2. Suggestion of small pericardial effusion. 3. Images through the abdomen show nonspecific mesenteric haziness and stranding which may represent some inflammatory change. No peripancreatic fluid or edema although pancreatitis should be excluded. There is mesenteric haziness and stranding in the mesentery inferior to the pancreatic head and neck. 4. A left ovarian cystic lesion is again seen, unchanged from 11-11-16. This should be followed closel y in the age patient. 5. Nonspecific subcutaneous adipose haziness which is also a new finding. This could represent edema or inflammation. POS: [facility]
== END 2017-07-14 09:55 | disposition home or self-care (01) ==
LOC: ERS 05:38
DX: N39.0 Urinary tract infection, site not specified (principal); E11.9 Type 2 diabetes mellitus without complications; E78.5 Hyperlipidemia, unspecified; I10 Essential (primary) hypertension; Z86.73 Personal history of transient ischemic attack (TIA), and cerebral infarction without residual deficits; Z79.899 Other long term (current) drug therapy; Z79.82 Long term (current) use of aspirin
CPT/HCPCS: 74176; 80053; 81003; 81015; 83690; 85025; 96361; 96374; J2270

== ENCOUNTER 2018-06-15 14:14 | Inpatient (IN) | payer SELFPAY ==
--- NOTE | 2018-06-15 15:14 | RAD ---
EXAM: Chest PA and lateral: HISTORY: Right lower extremity and abdominal fluid, x1 month COMPARISON: 02/02/2017 FINDINGS: Heart: Cardiomegaly Aorta: Atherosclerosis Pulmonary vessels: Prominent Costophrenic angles: Bibasilar pleural effusions Lungs: Opacity lung bases due to atelectasis, aspiration or infiltrate Pneumothorax: No pneumothorax Osseous structures: No osseous abnormalities IMPRESSION: 1. Congestive heart failure. 2. Atherosclerosis.
[2018-06-15 15:34] LABS: #Eosinphils 0.1 thou/uL (0.0-0.7); #Lymphocytes 1.1 thou/uL (1.20-3.40); #Monocytes 0.3 thou/uL (0.11-0.59); #Neutrophils 4.3 thou/uL (1.40-6.50); %Basophils 0.6 % (0.0-1.0); %Eosinophils 2.4 % (0.0-10.0); %Lymphocytes 18.7 % (21.0-51.0); %Monocytes 5.7 % (0.0-10.0); %Neutrophils 72.6 % (42.0-75.0); Hemoglobin 9.7 g/dL (12.0-16.0); Mean Corpuscular HGB CONC 31.9 g/dL (32.0-36.0); Mean Corpuscular Hemoglobin 27.1 pg (27.0-31.0); Mean Corpuscular Volume 85.1 fL (78.0-98.0); Mean Platelet Volume 7.7 fL (7.4-10.4); Platelet Count 372 thou/uL (130-400); RBC Distribution Width 14.6 % (11.5-14.5); Red Blood Cell (RBC) Count 3.57 mill/uL (4.20-5.40)
[2018-06-15 15:59] LABS: ALT (SGPT) 20 U/L (8-55); AST (SGOT) 29 U/L (5-34); Alkaline Phosphatase 94 U/L (40-150); Anion Gap 10 mmol/L (10-20); BUN (Urea Nitrogen) 32 mg/dL (9.8-20.1); Bilirubin, Total 0.3 mg/dL (0.2-1.2); CK (CPK) 419 U/L (29-168); Calc. Creatinine Clearance 0 mL/min (70-130); Calcium 8.1 mg/dL (7.8-10.44); Carbon Dioxide 25 mmol/L (23-31); Chloride 111 mmol/L (98-107); Estimated GFR-MDRD 37; Globulin 3.9 g/dL (2.4-3.5); Glucose 92 mg/dL (80-115); Lipase 35 U/L (8-78); Potassium 4.2 mmol/L (3.5-5.1); Protein, Total 6.9 g/dL (6.0-8.3); Sodium 142 mmol/L (136-145)
[2018-06-15] MEDS ORDERED: Nitroglycerin 2% Ointment 1 INCH/1 GM Packet ONE (16:57)
[2018-06-15] MEDS ORDERED: Furosemide 40 MG/4 ML VIAL ONE (16:57)
[2018-06-15] MEDS ORDERED: Acetaminophen 325 MG TAB PO PRN (19:26)
[2018-06-15] MEDS ORDERED: Ondansetron PF 4 MG/2 ML Vial IVP PRN (19:26)
[2018-06-15] MEDS ORDERED: Ondansetron ODT 4 MG TAB SL PRN (19:26)
[2018-06-15] MEDS ORDERED: Dextrose 50% Abboject 50 ML SYRINGE SLOW IVP PRN (19:32)
[2018-06-15] MEDS ORDERED: Dextrose 5% in Water 1,000 ML IV PRN (19:32)
[2018-06-15] MEDS ORDERED: HumaLOG 300 UNITS/3 ML VIAL SC PRN ×2 (19:32)
[2018-06-15 19:34] LABS: Troponin I Less than 0.010 ng/mL (< 0.028)
[2018-06-15] MEDS ORDERED: Non-Formulary Item 1 EACH (Insulin Detemir 100 Units/Ml [Levemir] 20 UNITS) SC SCH (21:00)
[2018-06-15] MEDS: Heparin 5,000 UNITS/ML VIAL SC SCH (21:53)
[2018-06-15] MEDS: Lisinopril 20 MG TAB PO SCH (21:53)
[2018-06-15] MEDS: Famotidine 20 MG TAB PO SCH (21:53)
[2018-06-15] MEDS: Oxybutynin 5 MG TAB PO SCH (21:54)
[2018-06-15] MEDS: Metoprolol Tartrate 50 MG TAB PO SCH (21:54)
[2018-06-15 22:18] LABS: Troponin I 0.017 ng/mL (< 0.028)
[2018-06-16 00:03] VITALS: BMI 34.4
--- NOTE | 2018-06-16 03:43 | HP ---
PRIMARY CARE PHYSICIAN: Dr. Dyan Ordonez. CHIEF COMPLAINT: "My legs have been swelling." HISTORY OF PRESENT ILLNESS: Ms. Cole is a very pleasant 62-year-old female, who has a history of hypertension and diabetes. She says that about 4 weeks ago she started noticing some swelling in her legs and she says it got progressively worse and started making its way up her legs and into the lower abdomen. She says this worried her, so she went to see Dr. Ordonez, whom she says increased her fluid medicines, her Lasix. She says that she had doubled up on her Lasix, but this did not help. As a result, she came to the emergency room for evaluation. She says she began having some light pain in the left side of her chest and noticed that she had difficulty lying flat in order to sleep. She also says that she has some type of sleeping problem, which "sounds like sleep apnea." She says she was told she needed a "machine" in order to help her breathe, but she has never been able to get this done. It sounds like she had a sleep study done more than 2 years ago, but never had the machine ordered. She also says that she had an event similar to this about a year and a half ago, where she went to [facility] where they gave her Lasix to "get the fluid out." Other than having increasing lower extremity edema, the patient has no other significant complaints. REVIEW OF SYSTEMS: All systems were reviewed and are negative except for that mentioned in the history of present illness. PAST MEDICAL HISTORY: Significant for diabetes, hypertension, hyperlipidemia, acute cerebrovascular accident with right-sided weakness as well as sleep apnea. PAST SURGICAL HISTORY: She has had cholecystectomy and right shoulder cyst surgery. ALLERGIES: SHE SAYS ONLY TO IBUPROFEN. SHE SAYS NOT TO MORPHINE IT IS IN HER CHART. SOCIAL HISTORY: She is a nonsmoker and nondrinker. She is . She has 4 children and she would not want resuscitation. FAMILY HISTORY: Significant for diabetes. MEDICATIONS: These will need to be reconciled with the patient. These were reconciled and include: Insulin 70/30 20 units twice a day Lipitor 40 mg a day Amlodipine 5mg a day Minoxidil 2.5mg a day Hydralazine 25 mg a day Plavix 75mg a day Lisinopril 20mg a day Metoprolol 50mg twice a day Oxybutynin 5mg twice a day Aspirin 325mg a day PHYSICAL EXAMINATION: VITAL SIGNS: Her blood pressure is 136/67, heart rate 70, respiratory rate of 18, temperature is 97.8. GENERAL: She is alert and oriented. She appears to be in no acute distress. She is well developed and well nourished. HEENT: Pupils are equal, round, and reactive to light. Extraocular muscles are intact. Her sclerae are anicteric. Throat, there is no erythema, no exudates. NECK: No adenopathy. No bruits. LUNGS: She has some rales in both of the bases and an occasional expiratory wheeze. CARDIOVASCULAR: She has a normal S1 and S2. There is no S3 or S4. She did have a grade 2/6 systolic murmur radiating to the axilla. ABDOMEN: Soft. She did have some mild left-sided tenderness. There is no rebound or guarding. EXTREMITIES: She has 2+ pitting edema up to the thigh. There is some mild erythema. NEUROLOGIC: Her cranial nerves 2 through 12 are grossly intact and her muscle strength is 5/5 in both her upper and lower extremities. SKIN AND INTEGUMENT: There are no skin changes, no rash. LAB AND X-RAYS: Her sodium is 142, potassium 4.2, chloride is 111, CO2 is 25, BUN of 32, creatinine 1.44, glucose is 92. CK was 419. BNP was 906. Her white blood cell count 6.0, hemoglobin 9.7, hematocrit is 30.3, and platelet count is 372. ASSESSMENT: 1. This is a pleasant 62-year-old female, who is being admitted for congestive heart failure exacerbation. She has an elevated proBNP. It is noted that she had an echocardiogram close to 2 years ago in which her ejection fraction was normal. Therefore, this likely represents acute on chronic diastolic heart failure. Acute on chronic diastolic heart failure: She will be placed on IV Lasix. We will need to reconcile and restart her medications. We will need to hold off on an TRUDI inhibitor due to acute renal insufficiency, place her on a low-dose beta jean marie and repeat her echocardiogram. 2. Acute renal failure. This is likely cardiorenal mediated and hopefully with diuresis, this will improve her renal function. We will continue to trend this. 3. Diabetes mellitus. Once again, we will need to reconcile her medications and place her on a sliding scale. 4. Obstructive sleep apnea. I have informed the patient that she will need a new sleep study, one that is more recent and highly recommend her obtaining the prescribed CPAP for BiPAP. 5. She will be placed on deep venous thrombosis as well as gastrointestinal prophylaxis. Medications have been reconciled Job ID: [id number] MTDD
[2018-06-16] MEDS: Furosemide 40 MG/4 ML VIAL SLOW IVP SCH ×2 (05:36→14:29)
[2018-06-16 06:38] LABS: #Eosinphils 0.2 thou/uL (0.0-0.7); #Lymphocytes 1.2 thou/uL (1.20-3.40); #Monocytes 0.4 thou/uL (0.11-0.59); #Neutrophils 3.6 thou/uL (1.40-6.50); %Basophils 0.4 % (0.0-1.0); %Eosinophils 3.3 % (0.0-10.0); %Lymphocytes 22.3 % (21.0-51.0); %Monocytes 6.8 % (0.0-10.0); %Neutrophils 67.1 % (42.0-75.0); Hemoglobin 8.4 g/dL (12.0-16.0); Mean Corpuscular HGB CONC 31.9 g/dL (32.0-36.0); Mean Corpuscular Hemoglobin 27.2 pg (27.0-31.0); Mean Corpuscular Volume 85.3 fL (78.0-98.0); Mean Platelet Volume 7.8 fL (7.4-10.4); Platelet Count 356 thou/uL (130-400); RBC Distribution Width 14.6 % (11.5-14.5); White Blood Cell (WBC) Count 5.4 thou/uL (4.8-10.8)
[2018-06-16 07:06] LABS: Anion Gap 10 mmol/L (10-20); BUN (Urea Nitrogen) 28 mg/dL (9.8-20.1); Calc. Creatinine Clearance 55 mL/min (70-130); Calcium 7.9 mg/dL (7.8-10.44); Carbon Dioxide 23 mmol/L (23-31); Chloride 110 mmol/L (98-107); Estimated GFR-MDRD 40; Glucose 105 mg/dL (80-115); Potassium 3.9 mmol/L (3.5-5.1); Sodium 139 mmol/L (136-145)
[2018-06-16] MEDS: Furosemide 40 MG TAB PO SCH (08:47)
[2018-06-16] MEDS: Amlodipine 5 MG TAB PO SCH (08:47)
[2018-06-16] MEDS: Clopidogrel Bisulfate 75 MG TAB PO SCH (08:47)
[2018-06-16] MEDS: Metoprolol Tartrate 50 MG TAB PO SCH ×2 (08:47→21:41)
[2018-06-16] MEDS: Lisinopril 20 MG TAB PO SCH ×2 (08:47→21:41)
[2018-06-16] MEDS: Insulin Glargine 20 UNITS in Pre-Filled Syringe 1 EACH SC SCH ×2 (08:47→21:39)
[2018-06-16] MEDS: Famotidine 20 MG TAB PO SCH ×2 (08:47→21:41)
[2018-06-16] MEDS: hydrALAZINE 25 MG TAB PO SCH (08:48)
[2018-06-16] MEDS: Oxybutynin 5 MG TAB PO SCH ×2 (08:48→21:41)
[2018-06-16] MEDS: Minoxidil 2.5 MG TAB PO SCH (08:48)
[2018-06-16] MEDS: Heparin 5,000 UNITS/ML VIAL SC SCH ×3 (08:53→21:40)
[2018-06-16] MEDS ORDERED: Non-Formulary Item 1 EACH (Insulin Detemir 100 Units/Ml [Levemir] 20 UNITS) SC SCH (09:00)
--- NOTE | 2018-06-16 14:54 | PDOC.PN ---
- Subjective Encounter Start Date: 06/16/18 Encounter Start Time: 12:05 Ms. Cole was seen today in follow-up of CHF exacerbation. She says she feels less swollen today, her abdomen is smalled as well as her legs. - Objective Resuscitation Status - Order Detail: 06/15/18 18:50 Resuscitation Status Routine Resuscitation Status: DNAR: NO Resuscitation Discussed with: Discussed with the patient MAR Reviewed: Yes Vital Signs & Weight: Vital Signs (12 hours) Temp Pulse Resp BP Pulse Ox 06/16/18 12:00 99.4 F 67 18 156/69 H 90 L 06/16/18 08:00 99.1 F 74 20 235/102 H 91 L 06/16/18 07:18 93 L 06/16/18 04:00 98.6 F 66 19 170/81 H 93 L Weight Weight 176 lb 12.8 oz Result Diagrams: 06/16/18 06:12 06/16/18 06:12 Additional Labs: Accuchecks 06/16/18 06/16/18 06/15/18 10:47 05:23 20:54 POC Glucose 182 H 162 H 116 H Phys Exam - Physical Examination HEENT: PERRLA Respiratory: no wheezing, no rhonchi + faint rales at the bases Cardiovascular: RRR, no rub 2/6 systolic murmur Gastrointestinal: soft, non-tender, no distention, positive bowel sounds Musculoskeletal: pulses present, edema present 3+ pitting edema in both lower extremities, no erythema Neurological: non-focal, moves all 4 limbs Dx/Plan (1) Acute on chronic diastolic heart failure Code(s): I50.33 - ACUTE ON CHRONIC DIASTOLIC (CONGESTIVE) HEART FAILURE Status : Acute (2) DM2 (diabetes mellitus, type 2) Status: Chronic (3) Dyslipidemia Code(s): E78.5 - HYPERLIPIDEMIA, UNSPECIFIED Status: Chronic (4) Hypertension Code(s): I10 - ESSENTIAL (PRIMARY) HYPERTENSION Status: Chronic (5) TAB (obstructive sleep apnea) Code(s): G47.33 - OBSTRUCTIVE SLEEP APNEA (ADULT) (PEDIATRIC) Status: Chronic - Plan * Acute on chronic diastolic heart failure- will continue to diurese with IV Lasix * Await Echo- if significant change from the previous, will need to consult Cardiology * HTN- her blood pressure is elevated- but after she received her usual medications it came down to 142/70, which I check manually in the room ( around 12:15pm). * DM- blood glucose is stable * TAB- she will need outpatient sleep study
[2018-06-16] MEDS: Acetaminophen 325 MG TAB PO PRN (16:35)
[2018-06-16] MEDS: cloNIDine 0.1 MG TAB PO PRN (16:35)
[2018-06-16] MEDS: Atorvastatin Calcium 40 MG TAB PO SCH (21:41)
[2018-06-17] MEDS: Furosemide 40 MG/4 ML VIAL SLOW IVP SCH ×2 (04:02→16:15)
[2018-06-17] MEDS: cloNIDine 0.1 MG TAB PO PRN ×2 (04:03→16:16)
[2018-06-17 08:13] LABS: Hemoglobin 8.4 g/dL (12.0-16.0); Mean Corpuscular HGB CONC 31.9 g/dL (32.0-36.0); Mean Corpuscular Hemoglobin 27.3 pg (27.0-31.0); Mean Corpuscular Volume 85.6 fL (78.0-98.0); Mean Platelet Volume 7.1 fL (7.4-10.4); Platelet Count 324 thou/uL (130-400); RBC Distribution Width 14.6 % (11.5-14.5); Red Blood Cell (RBC) Count 3.08 mill/uL (4.20-5.40); White Blood Cell (WBC) Count 5.1 thou/uL (4.8-10.8)
[2018-06-17 08:14] LABS: #Basophils 0.1 thou/uL (0.0-0.2); #Eosinphils 0.2 thou/uL (0.0-0.7); #Lymphocytes 1.6 thou/uL (1.20-3.40); #Monocytes 0.4 thou/uL (0.11-0.59); #Neutrophils 2.9 thou/uL (1.40-6.50); %Eosinophils 3.7 % (0.0-10.0); %Lymphocytes 31.4 % (21.0-51.0); %Monocytes 7.4 % (0.0-10.0); %Neutrophils 56.5 % (42.0-75.0)
[2018-06-17 08:33] LABS: Anion Gap 10 mmol/L (10-20); BUN (Urea Nitrogen) 30 mg/dL (9.8-20.1); Calc. Creatinine Clearance 47 mL/min (70-130); Calcium 7.8 mg/dL (7.8-10.44); Carbon Dioxide 26 mmol/L (23-31); Chloride 107 mmol/L (98-107); Estimated GFR-MDRD 34; Glucose 60 mg/dL (80-115); Sodium 139 mmol/L (136-145)
[2018-06-17 08:36] LABS: Hypochromia SLIGHT = 6-15 cells (100X) (0-5/hpf); MDiff Complete? YES; Ovalocytes SLIGHT = 2-5 cells (100X) (0-1/hpf); Platelet Morphology Comment Appears Adequate; Polychromasia SLIGHT = 2-3 cells (100X) (0-2/hpf)
[2018-06-17] MEDS: Lisinopril 20 MG TAB PO SCH ×2 (09:40→20:39)
[2018-06-17] MEDS: Clopidogrel Bisulfate 75 MG TAB PO SCH (09:40)
[2018-06-17] MEDS: Metoprolol Tartrate 50 MG TAB PO SCH ×2 (09:40→20:40)
[2018-06-17] MEDS: Famotidine 20 MG TAB PO SCH ×2 (09:40→20:40)
[2018-06-17] MEDS: Amlodipine 5 MG TAB PO SCH (09:40)
[2018-06-17] MEDS: Minoxidil 2.5 MG TAB PO SCH (09:40)
[2018-06-17] MEDS: Furosemide 40 MG TAB PO SCH (09:41)
[2018-06-17] MEDS: hydrALAZINE 25 MG TAB PO SCH ×3 (09:41→20:40)
[2018-06-17] MEDS: Oxybutynin 5 MG TAB PO SCH ×2 (09:41→20:41)
[2018-06-17] MEDS: Insulin Glargine 20 UNITS in Pre-Filled Syringe 1 EACH SC SCH (09:43)
[2018-06-17] MEDS: Heparin 5,000 UNITS/ML VIAL SC SCH ×3 (09:43→20:41)
--- NOTE | 2018-06-17 13:48 | PDOC.PN ---
- Subjective Encounter Start Date: 06/17/18 (f/u HF) Encounter Start Time: 13:46 Subjective: pt reports feeling better - breathing is better, less swelling -: denies any new sx - Objective Resuscitation Status - Order Detail: 06/15/18 18:50 Resuscitation Status Routine Resuscitation Status: DNAR: NO Resuscitation Discussed with: Discussed with the patient Vital Signs & Weight: Vital Signs (12 hours) Temp Pulse Resp BP BP Pulse Ox 06/17/18 12:00 97.8 F 70 18 158/80 H 95 06/17/18 09:41 63 06/17/18 09:40 191/85 H 06/17/18 08:00 97.6 F 63 16 218/89 H 93 L 06/17/18 06:45 95 06/17/18 05:25 145/71 H 06/17/18 04:03 191/85 H 06/17/18 03:47 98.2 F 61 18 191/85 H 95 Weight Weight 176 lb 12.8 oz I&O: 06/16/18 06/17/18 06/18/18 06:59 06:59 06:59 Intake Total 800 Output Total 1300 Balance -500 Result Diagrams: 06/17/18 08:05 06/17/18 08:05 Additional Labs: Accuchecks 06/17/18 06/17/18 06/16/18 10:57 05:11 20:44 POC Glucose 81 93 165 H 06/16/18 16:41 POC Glucose 126 H EKG Reviewed by me: Yes (tele - sinus 50-70's) Phys Exam - Physical Examination Constitutional: NAD Respiratory: no wheezing, no rales, no rhonchi Cardiovascular: RRR, no significant murmur Gastrointestinal: soft, non-tender, no distention, positive bowel sounds 3+ edema bilateral LE Psychiatric: normal affect Deviation from normal: some hyperpigmentation of LE Dx/Plan (1) Acute on chronic diastolic heart failure Code(s): I50.33 - ACUTE ON CHRONIC DIASTOLIC (CONGESTIVE) HEART FAILURE Status : Acute (2) TAB (obstructive sleep apnea) Code(s): G47.33 - OBSTRUCTIVE SLEEP APNEA (ADULT) (PEDIATRIC) Status: Chronic (3) Chest pain Code(s): R07.9 - CHEST PAIN, UNSPECIFIED Status: Acute (4) DM2 (diabetes mellitus, type 2) Status: Chronic (5) Dyslipidemia Code(s): E78.5 - HYPERLIPIDEMIA, UNSPECIFIED Status: Chronic (6) Hypertension Code(s): I10 - ESSENTIAL (PRIMARY) HYPERTENSION Status: Chronic - Plan * HF in the context of uncontrolled bp's - grade 2/3 diastolic dysfunction with preserved EF * Consult cardiology * continue diuresis * increase amlodipine to 5 mg bid * increase hydralazine to 25 mg tid * DAVI vs CKD * Consult nephrology * renal ultrasound * moderate anemia * check iron/vitamin studies * hypoglycemia this morning - decrease lantus to 10 units bid * * dvt prophy - ambulatory * gi prophy - not indicated * code status DNAR * * pt remains at high risk in current condition.
--- NOTE | 2018-06-17 15:38 | ULT ---
RENAL ULTRASOUND: 06/17/2018 PROVIDED CLINICAL HISTORY: Renal insufficiency. FINDINGS: The right kidney measures about 11.5 x 4.4 x 5.6 cm and demonstrates no evidence for hydronephrosis o r mass. The left kidney measures about 11.7 x 5.5 x 5.4 cm and demonstrates no evidence for hydronep hrosis or mass. The urinary bladder appears sonographically unremarkable. IMPRESSION: No evidence for hydronephrosis. POS: [facility]
--- NOTE | 2018-06-17 15:47 | CON ---
DATE OF CONSULTATION: REASON FOR CONSULTATION: Elevated creatinine. HISTORY OF PRESENT ILLNESS: This is a very pleasant 62-year-old female, who was admitted on June 15 for leg swelling. Her baseline creatinine has been anywhere from 1.4 to 1.5. Prior baseline had been less than 1, so her creatinine has progressively risen. She has had a stroke and has hypertension. She did not receive any nephrotoxic medications. The patient denies no headache, numbness, tingling, or weakness. PAST MEDICAL HISTORY: Significant for diabetes mellitus, hypertension, hyperlipidemia, CVA, right-sided weakness, cholecystectomy, right shoulder surgery. SOCIAL HISTORY: No alcohol or drug use. FAMILY HISTORY: Negative for ESRD. ALLERGIES: REVIEWED. HOME MEDICATIONS: List reviewed. REVIEW OF SYSTEMS: A 15-point review of systems was performed and negative except for positives noted above. GENERAL: HEAD: NECK: No swelling or lumps. NOSE: No epistaxis or discharge. EYES: No diplopia or pain. RESPIRATORY: CARDIOVASCULAR: GASTROINTESTINAL: /IMPOSER: MUSCULOSKELETAL: No joint pain. NEUROPSYCHIATIC SYSTEMS: No suicidal ideation. No ideation. SKIN: Denies any rash or ulcer. CONSTITUTIONAL: No fever or chills. PHYSICAL EXAMINATION: CONSTITUTIONAL: The patient is awake and alert. VITAL SIGNS: Afebrile. Pulse 70, breathing 16, blood pressure 158/80. GENERAL APPEARANCE AND MENTAL STATUS: Fair. HEAD/NECK: Normocephalic. Atraumatic. EYES: EOMI. No deformity. EARS: Clear. No ulcers. NOSE: Intact. No lesions. MOUTH: Clear. No discharge. THROAT: Clear. No exudate. LUNGS: Clear. No crackles. CARDIAC: S1, S2. No rub. ABDOMEN: Benign. Bowel sounds positive. GENITALIA/RECTUM: Bay absent. BACK/EXTREMITIES: Edema 0+. NEUROLOGICAL: Alert and motor intact. SKIN: LYMPHATICS: LABORATORY DATA: Labs reviewed. ASSESSMENT AND PLAN: 1. Acute kidney injury with chronic kidney disease most likely due to hypertensive nephrosclerosis. 2. Edema, continue Lasix. No indication for dialysis. We will order renal imaging and follow labs. We will order random urine-protein creatinine ratio as well to look for proteinuria. Job ID: [id number]
[2018-06-17 20:02] LABS: Creatinine, Urine Less than 20.00 mg/dL (47-110); Protein, Urine Random Quant 154 mg/dL (1-14)
[2018-06-17] MEDS: Atorvastatin Calcium 40 MG TAB PO SCH (20:40)
[2018-06-17] MEDS ORDERED: Insulin Glargine 10 UNITS in Pre-Filled Syringe 1 EACH SC SCH (21:00)
[2018-06-17] MEDS ORDERED: Amlodipine 5 MG TAB PO SCH (21:00)
[2018-06-17] MEDS: Isosorbide Dinitrate 20 MG TAB PO SCH (21:04)
[2018-06-17] MEDS: Acetaminophen 325 MG TAB PO PRN (21:04)
--- NOTE | 2018-06-18 00:07 | CON ---
DATE OF CONSULTATION: PRIMARY CARE DOCTOR: Dr. Dyan Ordonez. PRIMARY FLAT KNITTER: Kristin Zhang MD. ADDITIONAL REFERRING DOCTOR: Ayala Lozano MD REASON FOR CARDIOLOGY CONSULT: Congestive heart failure and uncontrolled hypertension. HISTORY OF PRESENT ILLNESS: Ms. Cole is a 62-year-old female with a significant history of congestive heart failure and stroke x5, last one in 2017; insulin-dependent diabetes; hypertension; and sleep apnea. She started having worsening of shortness of breath, abdomen bloating, and edema to the stomach for 3 weeks. The patient's primary care doctor increased her Lasix 20 mg from once a day to twice a day. She tried for 1-1/2 weeks. However, the medication regimen did not work for her and she still continued having shortness of breath, and even she walked to the bathroom from bedroom, she has to stop for her to breathe. Due to those reasons, the patient decided to present to the emergency department for further evaluation and treatment. The patient denies chest pain, discomfort, tightness to her chest, palpitation, fluttering, nausea, vomiting, or numbness to the left upper extremities. She usually uses two pillows to sleep. She was diagnosed with sleep apnea about two years ago. She is supposed to use a CPAP, but she has not purchased the machine at this moment. Echocardiogram done today, which shows grade 2 diastolic dysfunction with EF 60% to 65% and a small size pericardial effusion without a tamponade. Elevated right ventricular systolic pressure to 50 mmHg. She had a carotid Doppler done in 2012, showed no evidence of stenosis. She had a stress test done in 2017, showed no reversible ischemia. EF 62%. PAST MEDICAL HISTORY: Insulin-dependent diabetes; hypertension; hyperlipidemia; and cerebrovascular accident x5, the last was in 2017; and sleep apnea with no machine at night at this moment. The patient was diagnosed with brain aneurysm one year ago in [place], [place]. She is supposed to follow up with Neurology in one year with MRI. However, she has not had any further evaluation for the symptoms. PAST SURGICAL HISTORY: 1. Cholecystectomy. 2. Right shoulder cyst surgery. FAMILY HISTORY: There is significant family history of diabetes and asthma. The patient's father due to pancreatic cancer. The patient's mother due to the complication from the diabetes. SOCIAL HISTORY: She is . She has four children, who live well. She is living by herself at this moment, but her daughter is living across the street. She denies tobacco or illicit drug abuse. She usually drinks once a month for the family gathering, 1 to 2 beers at that time. She watches her fluid intake. However, she usually uses frozen fish and frozen food to cook. She does not watch what the salt on the label for the salt intake. She has tried to exercise, however, due to worsening of dyspnea, she has not exercised for almost 1 month. ALLERGIES: SHE IS ALLERGIC TO IBUPROFEN. HOME MEDICATIONS: 1. Plavix 75 mg once a day. 2. Insulin, Levemir, 20 in the morning and 20 at night. 3. Lasix 40 mg once a day. 4. Oxybutynin 5 mg twice a day. 5. Atorvastatin 40 mg once a day. 6. Amlodipine 5 mg once a day. 7. Metoprolol 50 mg twice a day. 8. Minoxidil 2.5 mg once a day. 9. Lisinopril 20 mg twice a day. 10. Hydralazine 25 mg once a day. REVIEW OF SYSTEMS: Twelve-point review of systems is negative unless otherwise mentioned in the HPI. The patient has blurred vision secondary to diabetes. She has intermittent constipation and diarrhea. She has leg pain since she has worsening of edema to the lower extremities. PHYSICAL EXAMINATION: VITAL SIGNS: Blood pressure 158/80, temperature 97.8, pulse is 70 and sinus rhythm, respiratory rate 18, and O2 saturation 95% on room air. GENERAL: The patient is alert and oriented x4, not in acute distress. HEENT: Head normocephalic and atraumatic. Eyes, extraocular muscle movement intact. ENT and mouth, oral and nasal mucosa moist without lesion. NECK: Supple. Normal range of motion. No JVD. RESPIRATORY: Clear to auscultate bilaterally. No rales, rhonchi, or wheezing noted, but diminished at the bases. CARDIOVASCULAR: Normal S1 and S2. No S3 or S4. No significant murmurs have been noted. Regular rate and rhythm. 2+ pulses in bilateral upper and lower extremities. Carotid pulses are present and the bruit to the left carotid arteries. There is 2 to 3+ pitting edema to the bilateral lower extremities, but there is soft touch at the bilateral thigh and abdomen. ABDOMEN: Soft, nontender. No mass to palpitate. Bowel sounds are present. SKIN: Warm and dry. No lesion, rash, or erythema noted. MUSCULOSKELETAL: The patient able to move all extremities without difficulty. The patient denied claudication. NEUROLOGIC: The patient is alert and oriented x4. Nonfocal. PSYCHIATRIC: The patient's mood is appropriate. LABORATORY DATA: WBC 5.1, hemoglobin 8.4, hematocrit 26.4, and platelet 324. Sodium 139, potassium 4.0, BUN 30, creatinine 1.54, glucose 81, and calcium 7.8. AST 20 and ALT 20. BNP 974. IMAGING: Chest x-ray shows cardiomegaly, congestive heart failure, and atherosclerosis. Renal ultrasound shows no evidence of hydronephrosis. A 12-lead EKG at the ER shows sinus rhythm with heart rate 74, no ST-segment change or T-wave inversion. ASSESSMENT AND PLAN: 1. Acute on chronic diastolic heart failure. The patient's condition is improving with Lasix 40 mg IV push twice a day. She has voided more than 3000 today. We would like to continue those measurements. At this moment, she is on metoprolol 50 mg twice a day and lisinopril 20 mg twice a day. 2. Hypertensive urgency. The patient's primary care doctor already increased the amlodipine 5 mg from once a day to twice a day and hydralazine 25 mg three times a day from once a day and the patient had a clonidine 0.1 mg every 4 hours as needed if the blood pressure is more than 180. We would like to continue to monitor. Patient had a renal ultrasound that showed no abnormal renal function. 3. Acute kidney insufficiency. The patient's kidney function is stable at this moment. We would like to continue the current medication at this moment and we would like to monitor the creatinine function closely. 4. Hyperlipidemia. She is on atorvastatin 40 mg once a day. The patient has a history of multiple cerebrovascular accidents, last one in 2017. She is on Plavix 75 mg once a day at this moment for the diagnosis and also patient is on heparin 5000 units three times a day. 5. Insulin-dependent diabetes, which is managed by primary care doctor. 6. Sleep apnea. The patient might need another sleep study as outpatient. We discussed about symptoms from the sleep apnea and the benefit from CPAP at night. The patient voiced understanding and she would like to have another sleep study in the near future. 7. Anemia. The hemoglobin level is stable at this moment. We would like to continue to monitor closely. Thank you very much for allowing the Cardiology Service to participate in the care of this patient. We will follow along the patient's care team and make further recommendations as appropriate. Job ID: [id number]
[2018-06-18] MEDS: Furosemide 40 MG/4 ML VIAL SLOW IVP SCH ×2 (06:11→14:42)
[2018-06-18 06:42] LABS: #Basophils 0.1 thou/uL (0.0-0.2); #Eosinphils 0.2 thou/uL (0.0-0.7); #Lymphocytes 1.8 thou/uL (1.20-3.40); #Monocytes 0.5 thou/uL (0.11-0.59); #Neutrophils 3.6 thou/uL (1.40-6.50); %Basophils 0.8 % (0.0-1.0); %Eosinophils 3.6 % (0.0-10.0); %Lymphocytes 29.5 % (21.0-51.0); %Monocytes 7.5 % (0.0-10.0); %Neutrophils 58.5 % (42.0-75.0); Mean Corpuscular HGB CONC 32.2 g/dL (32.0-36.0); Mean Corpuscular Hemoglobin 27.7 pg (27.0-31.0); Mean Corpuscular Volume 86.1 fL (78.0-98.0); Mean Platelet Volume 7.7 fL (7.4-10.4); Platelet Count 389 thou/uL (130-400); RBC Distribution Width 14.8 % (11.5-14.5); Red Blood Cell (RBC) Count 3.25 mill/uL (4.20-5.40); White Blood Cell (WBC) Count 6.1 thou/uL (4.8-10.8)
[2018-06-18 07:03] LABS: Anion Gap 10 mmol/L (10-20); BUN (Urea Nitrogen) 31 mg/dL (9.8-20.1); Calc. Creatinine Clearance 43 mL/min (70-130); Calcium 7.9 mg/dL (7.8-10.44); Carbon Dioxide 28 mmol/L (23-31); Chloride 106 mmol/L (98-107); Estimated GFR-MDRD 31; Iron 25 ug/dL (50-170); Iron Binding Capacity, Total 255 mcg/dL (265-497); Potassium 3.9 mmol/L (3.5-5.1); Sodium 140 mmol/L (136-145)
[2018-06-18 07:23] LABS: Glucose 41 mg/dL (80-115)
[2018-06-18 07:34] LABS: Folate (Folic Acid) 10.1 ng/mL (7.0-31.4)
[2018-06-18] MEDS: hydrALAZINE 25 MG TAB PO SCH ×3 (08:16→21:52)
[2018-06-18] MEDS: Clopidogrel Bisulfate 75 MG TAB PO SCH (08:16)
[2018-06-18] MEDS: Oxybutynin 5 MG TAB PO SCH ×2 (08:17→21:52)
[2018-06-18] MEDS: Lisinopril 20 MG TAB PO SCH ×2 (08:17→21:51)
[2018-06-18] MEDS: Metoprolol Tartrate 50 MG TAB PO SCH ×2 (08:17→21:52)
[2018-06-18] MEDS: Minoxidil 2.5 MG TAB PO SCH (08:18)
[2018-06-18] MEDS: Heparin 5,000 UNITS/ML VIAL SC SCH ×3 (08:18→21:53)
[2018-06-18] MEDS: Isosorbide Dinitrate 20 MG TAB PO SCH ×2 (08:18→21:51)
--- NOTE | 2018-06-18 08:33 | ULT ---
EXAM: Carotid Doppler PROVIDED CLINICAL HISTORY: Carotid bruit COMPARISON: 10/03/2012 FINDINGS: Grayscale and color Doppler sonography with spectral analysis was performed of the extracranial carot id system bilaterally. There is no evidence for a hemodynamically significant internal carotid artery stenosis by peak systolic velocity or ratio criteria. Antegrade flow is seen in the left vert ebral artery. Retrograde flow is seen within the right vertebral artery. IMPRESSION: No sonographic evidence for a hemodynamically significant internal carotid artery stenosis. Retrograd e flow in the right vertebral artery, compatible with subclavian steal.
[2018-06-18] MEDS: Docusate 100 MG CAP PO SCH (08:45)
[2018-06-18] MEDS: Ascorbic Acid 500 mg Chewable Tablet PO SCH (08:45)
[2018-06-18] MEDS ORDERED: Insulin Glargine 10 UNITS in Pre-Filled Syringe 1 EACH SC SCH (09:00)
--- NOTE | 2018-06-18 12:29 | PDOC.PN ---
- Subjective Encounter Start Date: 06/18/18 (f/u htn) Encounter Start Time: 12:28 Subjective: Pt without complaints, legs feel less swollen. Denies any cp/ dyspnea -: denies n/v/abd pain or new concerns -: Hypoglycemia this morning - responded to juice - Objective Resuscitation Status - Order Detail: 06/15/18 18:50 Resuscitation Status Routine Resuscitation Status: DNAR: NO Resuscitation Discussed with: Discussed with the patient Vital Signs & Weight: Vital Signs (12 hours) Temp Pulse Pulse Pulse Resp BP BP 06/18/18 12:00 98.9 F 66 18 06/18/18 11:20 60 76 148/68 H 144/65 H 06/18/18 08:16 63 06/18/18 08:00 99.7 F H 66 17 06/18/18 03:12 98.1 F 63 16 BP Pulse Ox Pulse Ox Pulse Ox 06/18/18 12:00 148/68 H 92 L 06/18/18 11:20 92 L 92 L 06/18/18 08:16 06/18/18 08:00 160/75 H 95 06/18/18 03:12 148/79 H 95 Weight Weight 172 lb 8 oz I&O: 06/17/18 06/18/18 06/19/18 06:59 06:59 06:59 Intake Total 800 900 Output Total 1300 850 Balance -500 50 Result Diagrams: 06/18/18 05:52 06/18/18 05:52 Additional Labs: Accuchecks 06/18/18 06/18/18 06/18/18 10:44 06:19 05:37 POC Glucose 99 120 H 62 L 06/17/18 06/17/18 20:34 16:55 POC Glucose 130 H 75 EKG Reviewed by me: Yes (tele - sinus 60's) Phys Exam - Physical Examination Constitutional: NAD Respiratory: no wheezing, no rales, no rhonchi, clear to auscultation bilateral Cardiovascular: RRR 2/6 Systolic murmur Gastrointestinal: soft Musculoskeletal: pulses present, edema present 2+ edema bilateral Neurological: non-focal, moves all 4 limbs Psychiatric: normal affect Skin: no rash Dx/Plan (1) Acute on chronic diastolic heart failure Code(s): I50.33 - ACUTE ON CHRONIC DIASTOLIC (CONGESTIVE) HEART FAILURE Status : Acute (2) TAB (obstructive sleep apnea) Code(s): G47.33 - OBSTRUCTIVE SLEEP APNEA (ADULT) (PEDIATRIC) Status: Chronic (3) Chest pain Code(s): R07.9 - CHEST PAIN, UNSPECIFIED Status: Resolved (4) DM2 (diabetes mellitus, type 2) Status: Chronic (5) Dyslipidemia Code(s): E78.5 - HYPERLIPIDEMIA, UNSPECIFIED Status: Chronic (6) Hypertension Code(s): I10 - ESSENTIAL (PRIMARY) HYPERTENSION Status: Chronic - Plan * * HF in the context of uncontrolled bp's - grade 2/3 diastolic dysfunction with preserved EF * appreciate cardiology consult - * hydralazine increased to tid yesterday from daily - continue * norvasc increased to bid yesterday - changed to daily this morning to avoid dropping the blood pressure too much that pt will be sx * carotid US with right subclavian steal - pt asx * Hypoglycemia - long acting insulin d/c, use SSI only for now. Will need a plan for this at d/c as pt is currently on 70/30 insulin at home * Likely CKD with stable renal function tolerating diuresis * appreciate Nephrology consult * moderate anemia - iron deficient - start replacement orally, with vitamin c and stool softener * * dvt prophy - ambulatory * gi prophy - not indicated * code status DNAR * * pt remains at high risk in current condition. * * pt overall improved, anticipate d/c in the next few days
--- NOTE | 2018-06-18 12:45 | PDOC.CTH ---
Cardiology Progress Note - Subjective The pt seen and examined. No overnight events. No cardiac complaints. - Objective Vital Signs Temp Pulse Pulse Pulse Resp BP BP 06/18/18 12:00 98.9 F 66 18 06/18/18 11:20 60 76 148/68 H 144/65 H 06/18/18 08:16 63 06/18/18 08:00 99.7 F H 66 17 06/18/18 03:12 98.1 F 63 16 BP Pulse Ox Pulse Ox Pulse Ox 06/18/18 12:00 148/68 H 92 L 06/18/18 11:20 92 L 92 L 06/18/18 08:16 06/18/18 08:00 160/75 H 95 06/18/18 03:12 148/79 H 95 Weight 172 lb 8 oz 06/17/18 06/18/18 06/19/18 06:59 06:59 06:59 Intake Total 800 900 Output Total 1300 850 Balance -500 50 - Physical Examination General/Neuro: alert & oriented x3 Neck: no JVD present Lungs: CTA Heart: RRR Abdomen: soft Extremities: other: (2-3+ pitting BLE edema) - Telemetry Telemetry Rhythm: SR - Labs Result Diagrams: 06/18/18 05:52 06/18/18 05:52 Troponin/CKMB Troponin I 0.017 ng/mL (< 0.028) 06/15/18 21:37 - Assessment/Plan 1. Acute on chronic diastolic HF with grade II dd - improving with Lasix 40mg IV BID, which will be changed to PO BID; on Bblocker, TRUDI. 2. HTN urgency - stable with current meds 3. Insulin-dependent DM - low this AM; managed by PCP 4. CKD - managed by corporate associate 5. TAB - may need Sleep study as outpt 6. Hyperlipidemia - on Statin MAR reviewed Pt. seen and eval. by me.I agree with the A/P by the MECHANICAL PRODUCT DESIGN ENGINEER. We have discussed the plan. Chest: clear. RRR. No edema. Continue present meds. gjm Review of Systems - Review of Systems Constitutional: reports: no symptoms reported EENTM: reports: no symptoms reported Respiratory: reports: no symptoms reported Cardiac (ROS): reports: no symptoms reported ABD/GI: reports: no symptoms reported : reports: no symptoms reported Musculoskeletal: reports: no symptoms reported
--- NOTE | 2018-06-18 14:07 | PRG ---
DATE OF SERVICE: 06/18/2018 SUBJECTIVE: A 62-year-old female being seen for acute kidney injury. The patient denied any nausea, vomiting, or chest pain. OBJECTIVE: CONSTITUTIONAL: On examination, the patient is awake and alert. VITAL SIGNS: Afebrile, pulse 66, breathing 16, and blood pressure 148/60. GENERAL APPEARANCE AND MENTAL STATUS: Fair. HEAD/NECK: Normocephalic. Atraumatic. EYES: EOMI. No deformity. EARS: Clear. No ulcers. NOSE: Intact. No lesions. MOUTH: Clear. No discharge. THROAT: Clear. No exudate. LUNGS: Clear. No crackles. CARDIAC: S1, S2. No rub. ABDOMEN: Benign. Bowel sounds positive. GENITALIA/RECTUM: Bay absent. BACK/EXTREMITIES: Edema 0+. NEUROLOGICAL: Alert and motor intact. DIAGNOSTIC DATA: Ultrasound showed no hydronephrosis. Labs show hemoglobin 9.0. Creatinine 1.6. ASSESSMENT AND PLAN: 1. Acute kidney injury with chronic kidney disease due to cardiorenal syndrome. No indication for dialysis. 2. Hypertension, stable. 3. Anemia, stable. 4. Medications based on glomerular filtration rate are appropriate. Job ID: [id number]
[2018-06-18] MEDS: Acetaminophen 325 MG TAB PO PRN (14:46)
[2018-06-18] MEDS ORDERED: Amlodipine 5 MG TAB PO SCH (21:00)
[2018-06-18] MEDS: Atorvastatin Calcium 40 MG TAB PO SCH (21:50)
[2018-06-18] MEDS: Famotidine 20 MG TAB PO SCH (21:51)
--- NOTE | 2018-06-18 22:18 | EKG ---
Test Reason : LE SWELLING Blood Pressure : / mmHG Vent. Rate : 074 BPM Atrial Rate : 074 BPM P-R Int : 130 ms QRS Dur : 078 ms QT Int : 404 ms P-R-T Axes : 033 -32 021 degrees QTc Int : 448 ms Normal sinus rhythm Left axis deviation Inferior infarct , age undetermined Cannot rule out Anterior infarct , age undetermined Left atrial enlargement Abnormal ECG Confirmed by CHANTE CROWE, JACEK Russell ([id number]), brands editor MICHEL VEGA ([id number]) on 06/18/2018 10:17:54 PM Referred By: Confirmed By:JACEK SHARIF MD
[2018-06-19 06:22] LABS: Anion Gap 9 mmol/L (10-20); BUN (Urea Nitrogen) 33 mg/dL (9.8-20.1); Calc. Creatinine Clearance 40 mL/min (70-130); Calcium 7.8 mg/dL (7.8-10.44); Carbon Dioxide 28 mmol/L (23-31); Chloride 105 mmol/L (98-107); Estimated GFR-MDRD 29; Glucose 99 mg/dL (80-115); Potassium 4.3 mmol/L (3.5-5.1); Sodium 138 mmol/L (136-145)
[2018-06-19] MEDS: Ascorbic Acid 500 mg Chewable Tablet PO SCH (07:59)
[2018-06-19] MEDS: Ferrous Gluconate 324 MG TAB PO SCH (07:59)
[2018-06-19] MEDS: Isosorbide Dinitrate 20 MG TAB PO SCH ×2 (07:59→20:25)
[2018-06-19] MEDS: Clopidogrel Bisulfate 75 MG TAB PO SCH (07:59)
[2018-06-19] MEDS: Amlodipine 5 MG TAB PO SCH ×2 (07:59→20:25)
[2018-06-19] MEDS: Furosemide 40 MG TAB PO SCH ×2 (07:59→14:47)
[2018-06-19] MEDS: Minoxidil 2.5 MG TAB PO SCH (07:59)
[2018-06-19] MEDS: Docusate 100 MG CAP PO SCH (08:00)
[2018-06-19] MEDS: hydrALAZINE 25 MG TAB PO SCH ×3 (08:00→20:23)
[2018-06-19] MEDS: Lisinopril 20 MG TAB PO SCH ×2 (08:00→20:24)
[2018-06-19] MEDS: Metoprolol Tartrate 50 MG TAB PO SCH ×2 (08:00→20:22)
[2018-06-19] MEDS: Oxybutynin 5 MG TAB PO SCH ×2 (08:00→21:39)
[2018-06-19] MEDS: Heparin 5,000 UNITS/ML VIAL SC SCH ×3 (08:01→20:27)
--- NOTE | 2018-06-19 12:09 | PDOC.PN ---
- Subjective Encounter Start Date: 06/19/18 (f/u DM) Encounter Start Time: 12:04 Subjective: Pt without complaints today. Denies any cp/sob/n/v/abd pain - Objective Resuscitation Status - Order Detail: 06/15/18 18:50 Resuscitation Status Routine Resuscitation Status: DNAR: NO Resuscitation Discussed with: Discussed with the patient Vital Signs & Weight: Vital Signs (12 hours) Temp Pulse Pulse Pulse Resp BP BP 06/19/18 10:12 89 66 175/76 H 139/63 06/19/18 08:00 98.6 F 66 17 06/19/18 07:59 68 06/19/18 02:55 100 F H 68 22 H BP Pulse Ox Pulse Ox Pulse Ox 06/19/18 10:12 94 L 93 L 06/19/18 08:00 187/88 H 94 L 06/19/18 07:59 06/19/18 02:55 156/70 H 94 L Weight Weight 173 lb 12.8 oz I&O: 06/18/18 06/19/18 06/20/18 06:59 06:59 06:59 Intake Total 900 720 Output Total 850 1450 Balance 50 -730 Result Diagrams: 06/18/18 05:52 06/19/18 05:22 Additional Labs: Accuchecks 06/19/18 06/19/18 06/18/18 10:38 05:15 20:26 POC Glucose 192 H 121 H 172 H 06/18/18 16:42 POC Glucose 166 H EKG Reviewed by me: Yes (tele - sinus 60-70's) Phys Exam - Physical Examination Constitutional: NAD Respiratory: no wheezing, no rales, no rhonchi Cardiovascular: RRR, no significant murmur Gastrointestinal: soft, non-tender, no distention, positive bowel sounds 1+ edema bilateral Neurological: non-focal, moves all 4 limbs Psychiatric: normal affect Skin: no rash Dx/Plan (1) Acute on chronic diastolic heart failure Code(s): I50.33 - ACUTE ON CHRONIC DIASTOLIC (CONGESTIVE) HEART FAILURE Status : Acute (2) TAB (obstructive sleep apnea) Code(s): G47.33 - OBSTRUCTIVE SLEEP APNEA (ADULT) (PEDIATRIC) Status: Chronic (3) Chest pain Code(s): R07.9 - CHEST PAIN, UNSPECIFIED Status: Resolved (4) DM2 (diabetes mellitus, type 2) Status: Chronic (5) Dyslipidemia Code(s): E78.5 - HYPERLIPIDEMIA, UNSPECIFIED Status: Chronic (6) Hypertension Code(s): I10 - ESSENTIAL (PRIMARY) HYPERTENSION Status: Chronic - Plan * * Diastolic HF * appreciate cardiology consult - * improved bp control - pt has had multiple medication changes here * carotid US with right subclavian steal - pt asx * Hypoglycemia during this hospitalization. Pt does not require long-acting insulin at home - she uses the 70/30, as she has hypoglycemia both at home and here with lantus. Recommend she is discharged with short acting insulin and sliding scale to use with meals * CKD with stable renal function - on TRUDI-I. Appreciate Nephrology following. * moderate anemia - iron deficient - continue replacement - will need this as an outpatient * * discharge anticipated for tomorrow - based on Cardiology recommendations. Of note, pt without insurance and does need a sleep study for suspected TAB. Will need close f/u with Dr. Ordonez for assistance with this issue. The patient will also need education on all the medication changes made here, and the insulin changes - to short acting only. * * dvt prophy - ambulatory * gi prophy - not indicated * code status DNAR * * Pt remains at high risk given age, comorbidities and current presentation *
--- NOTE | 2018-06-19 12:34 | PRG ---
DATE OF SERVICE: 06/19/2018 SUBJECTIVE: A 62-year-old female, being seen for acute kidney injury. The patient denied any nausea, nausea, or chest pain. OBJECTIVE: CONSTITUTIONAL: On examination, the patient is awake and alert. VITAL SIGNS: Afebrile. Pulse 75, breathing 16, blood pressure 139/60. GENERAL APPEARANCE AND MENTAL STATUS: Fair. HEAD/NECK: Normocephalic. Atraumatic. EYES: EOMI. No deformity. EARS: Clear. No ulcers. NOSE: Intact. No lesions. MOUTH: Clear. No discharge. THROAT: Clear. No exudate. LUNGS: Clear. No crackles. CARDIAC: S1, S2. No rub. ABDOMEN: Benign. Bowel sounds positive. GENITALIA/RECTUM: Bay absent. BACK/EXTREMITIES: Edema 0+. NEUROLOGICAL: Alert and motor intact. SKIN: LYMPHATICS: LABORATORY DATA: Labs show hemoglobin 9. Creatinine is 1.7. ASSESSMENT: 1. Acute kidney injury with chronic kidney disease due to cardiorenal syndrome. No indication for dialysis. 2. Hypertension, stable. 3. Anemia, stable. 4. Medication based on GFR appropriate. Job ID: [id number]
--- NOTE | 2018-06-19 14:31 | PDOC.CTH ---
Cardiology Progress Note - Subjective The pt seen and examined. No overnight events. No cardiac complaints. - Objective Vital Signs Temp Pulse Pulse Pulse Resp BP BP 06/19/18 12:08 98 F 65 18 06/19/18 10:12 89 66 175/76 H 139/63 06/19/18 08:00 98.6 F 66 17 06/19/18 07:59 68 06/19/18 02:55 100 F H 68 22 H BP Pulse Ox Pulse Ox Pulse Ox 06/19/18 12:08 160/72 H 93 L 06/19/18 10:12 94 L 93 L 06/19/18 08:00 187/88 H 94 L 06/19/18 07:59 06/19/18 02:55 156/70 H 94 L Weight 173 lb 12.8 oz 06/18/18 06/19/18 06/20/18 06:59 06:59 06:59 Intake Total 900 720 Output Total 850 1450 Balance 50 -730 - Physical Examination General/Neuro: alert & oriented x3 Neck: no JVD present Lungs: CTA Heart: RRR Abdomen: soft Extremities: other: (2-3+ pitting BLE edema) - Telemetry Telemetry Rhythm: SR - Labs Result Diagrams: 06/18/18 05:52 06/19/18 05:22 Troponin/CKMB Troponin I 0.017 ng/mL (< 0.028) 06/15/18 21:37 - Assessment/Plan 1. Acute on chronic diastolic HF with grade II dd - improving with Lasix 40mg PO BID; on Bblocker and TRUDI. 2. HTN urgency - Norvasc 5mg changed from qd to BID and Hydralazine was increased from 25mg to 50mg TID 3. Insulin-dependent DM - low this AM; managed by PCP 4. CKD - managed by retort condenser attendant 5. TAB - may need Sleep study as outpt 6. Hyperlipidemia - on Statin 7. moderate anemia 8. Carotid US with right subclavian steal - the pt is asymptomatic. Cont to monitor MAR reviewed * DNAR Pt. seen and eval. by me. I agree with the A/P by the BOX MAKER WOOD. Exam: chest clear. RRR., lower extremity edema, improved. gjm Review of Systems - Review of Systems Constitutional: reports: no symptoms reported EENTM: reports: no symptoms reported Respiratory: reports: no symptoms reported Cardiac (ROS): reports: no symptoms reported ABD/GI: reports: no symptoms reported : reports: no symptoms reported
[2018-06-19] MEDS: Atorvastatin Calcium 40 MG TAB PO SCH (20:22)
[2018-06-19] MEDS: Famotidine 20 MG TAB PO SCH (20:24)
[2018-06-20 06:40] LABS: Anion Gap 11 mmol/L (10-20); BUN (Urea Nitrogen) 31 mg/dL (9.8-20.1); Calc. Creatinine Clearance 41 mL/min (70-130); Calcium 8.1 mg/dL (7.8-10.44); Carbon Dioxide 28 mmol/L (23-31); Chloride 105 mmol/L (98-107); Estimated GFR-MDRD 29; Glucose 137 mg/dL (80-115); Potassium 4.2 mmol/L (3.5-5.1); Sodium 140 mmol/L (136-145)
--- NOTE | 2018-06-20 07:45 | CON ---
DATE OF CONSULTATION: 06/17/2018 ADDENDUM: INDICATION FOR CONSULTATION: This is a 62-year-old female with a history of diastolic heart failure. HISTORY OF PRESENT ILLNESS: This is a 62-year-old female who was last seen by me in the office in November 2017 as a new patient, has not returned since that time. She was here to establish cardiac care. She had a history of CVAs at that time. She said she already had a history of 5 strokes, the first one had occurred about 2.5 to 3 ago. At that time, also earlier in the year 2017, she had an echocardiogram which showed an ejection fraction of 55% to 60% with mild mitral valve regurgitation. It appeared that she did have some evidence of diastolic dysfunction. She had some problems with the CVAs and possible syncope. She had a LINQ implanted the year previous to have been seen by me in the office. She also has history of risk factors for coronary artery disease which included diabetes and hypertension. She also has hypercholesterolemia. She has a diagnosis of sleep apnea, but does not wear a CPAP mask, because of which she is in the hospital. She has poorly-controlled hypertension in the last several weeks. She has been noticing lower extremity edema to the fact she became somewhat short of breath and then presented to the hospital. She denied any chest pain. At this time, she is undergoing diuresis and feels somewhat improved. However, her blood pressure still remained significantly elevated to the 190/85 while I am seeing her at this time , but she is otherwise comfortable. She did tell me that she has had problems like this in the past and usually has problems until she gets IV Lasix and they would diurese, it will improve, then she will be okay for some time and then again occurs. I am uncertain as to whether or not she is eating correctly or has been noncompliant with the medications. She does say that she has doubled her Lasix in the past and seemed to be otherwise relatively compliant with her medications. She is aware of her medicines, but has not yet had the CPAP mask ordered or has not been able to afford the CPAP mask. At this time, she denies any chest pain. There is no indication that she has suffered a myocardial infarction. Her troponin Is remain negative. Her BNP was elevated at 974. Her renal function is obviously slightly compromised. Creatinine was 1.33 on admission, is now increased up to 1.54. This may be due to the diuresis, but otherwise appears to be relatively stable overall. PAST MEDICAL HISTORY: Please refer to the notes dictated by my nurse practitioner. SOCIAL HISTORY: Please refer to the notes dictated by my nurse practitioner. FAMILY HISTORY: Please refer to the notes dictated by my nurse practitioner. REVIEW OF SYSTEMS: Please refer to the notes dictated by my nurse practitioner. MEDICATIONS: Please refer to the notes dictated by my nurse practitioner. ALLERGIES: PLEASE REFER TO THE NOTES DICTATED BY MY NURSE PRACTITIONER. PHYSICAL EXAMINATION: GENERAL: Reveals a middle-aged female who is obese. She is comfortable at this time. She denies any complaints. VITAL SIGNS: Her blood pressure is 191/85, heart rate is 70 and regular. She is afebrile. Respiratory rate is about 16. HEENT: Shows the head to be normocephalic and atraumatic. Carotid pulses are present. She has a left carotid bruit. CHEST: Has some mild bibasilar rales. CARDIOVASCULAR: Reveals a regular rate and rhythm. She has a very soft systolic murmur at the upper sternal border, otherwise unremarkable. ABDOMEN: Shows obesity. I cannot palpate any masses or tenderness or bruits. EXTREMITIES: Show 2+ lower extremity edema. Pedal pulses are difficult to palpate. NEUROLOGIC: The patient appears to be intact. SKIN: Warm and dry. IMPRESSION: 1. Elderly female with a history of diastolic heart failure with now volume overload. I would agree with diuresis . We will need to control the blood pressure. This may also help some with the diastolic dysfunction. There has been no indication she has any coronary artery disease in the past and no indication she has any systolic heart failure. 2. We will continue her medical management. I will also add nitrates to see if we can decrease the blood pressure and also may improve some of the forward flow. 3. Left carotid bruit. She had a carotid Doppler several years ago. We will need to repeat that as this is a very prominent left carotid bruit. 4. History of cerebrovascular accidents in the past, which most likely due to the multitude of etiologies. It certainly maybe associated with her hypertension which is poorly controlled. 5. Diabetes. This will be dealt with by the primary care service. 6. Hypertension. Again, I will add nitrates to see if we can improve the blood pressure. As far as her other medical management, this will be dealt with by the primary care service. 7. Sleep apnea. We would suggest that she is certainly entertained the thought of obtaining a CPAP mask. She will need to undergo a repeat sleep study if it has been more than several months. 8. History of a LINQ implant. This could be interrogated, but she has had no further syncopal episodes or any indication that she has any arrhythmias at this time. Job ID: [id number] MTDD
--- NOTE | 2018-06-20 07:50 | PDOC.PN ---
- Subjective Encounter Start Date: 06/20/18 Encounter Start Time: 09:20 Subjective: Patient feeling much better. Able to get up and ambulate well. On RA. -: No chest pain. Minimal edema. Ready to go home. - Objective Resuscitation Status - Order Detail: 06/15/18 18:50 Resuscitation Status Routine Resuscitation Status: DNAR: NO Resuscitation Discussed with: Discussed with the patient MAR Reviewed: Yes Vital Signs & Weight: Vital Signs (12 hours) Temp Pulse Resp BP BP BP Pulse Ox 06/20/18 07:04 98.9 F 68 14 179/79 H 91 L 06/20/18 03:57 98.8 F 67 16 159/72 H 94 L 06/19/18 20:25 73 174/79 H 06/19/18 20:24 174/79 H 06/19/18 20:23 73 174/79 H 06/19/18 19:50 98.7 F 73 16 174/79 H 94 L Weight Weight 171 lb 14.4 oz I&O: 06/19/18 06/20/18 06/21/18 06:59 06:59 06:59 Intake Total 720 1340 Output Total 1450 1200 Balance -730 140 Result Diagrams: 06/18/18 05:52 06/20/18 06:01 Additional Labs: Accuchecks 06/20/18 06/19/18 06/19/18 05:36 20:33 17:01 POC Glucose 139 H 237 H 131 H 06/19/18 10:38 POC Glucose 192 H Phys Exam - Physical Examination Constitutional: NAD HEENT: moist MMs Respiratory: no wheezing, no rales, no rhonchi, clear to auscultation bilateral Cardiovascular: RRR, no significant murmur Gastrointestinal: soft, non-tender, positive bowel sounds Musculoskeletal: edema present 1+ bilateral shins, much improved per patient report Neurological: non-focal, moves all 4 limbs Psychiatric: normal affect, A&O x 3 Dx/Plan (1) Acute on chronic diastolic heart failure Code(s): I50.33 - ACUTE ON CHRONIC DIASTOLIC (CONGESTIVE) HEART FAILURE Status : Acute Comment: improved with Lasix (2) TAB (obstructive sleep apnea) Code(s): G47.33 - OBSTRUCTIVE SLEEP APNEA (ADULT) (PEDIATRIC) Status: Chronic (3) DM2 (diabetes mellitus, type 2) Status: Chronic Qualifiers: Diabetes mellitus halfway insulin use: with fashion designer use Comment: shorter acting insulins only as patient tends to become hypoglycemic on Lantus (4) Dyslipidemia Code(s): E78.5 - HYPERLIPIDEMIA, UNSPECIFIED Status: Chronic (5) Hypertension Code(s): I10 - ESSENTIAL (PRIMARY) HYPERTENSION Status: Chronic (6) Chest pain Code(s): R07.9 - CHEST PAIN, UNSPECIFIED Status: Resolved (7) Chronic renal failure, stage 3 (moderate) Code(s): N18.3 - CHRONIC KIDNEY DISEASE, STAGE 3 (MODERATE) Status: Chronic Comment: some bump in creatinine with diuresis, now stable on oral Lasix - Plan cont current plan of care can d/c home if ok with cardiology * . - Discharge Day Encounter end time: 09:40
[2018-06-20] MEDS: Lisinopril 20 MG TAB PO SCH (09:18)
[2018-06-20] MEDS: Isosorbide Dinitrate 20 MG TAB PO SCH (09:18)
[2018-06-20] MEDS: Ascorbic Acid 500 mg Chewable Tablet PO SCH (09:19)
[2018-06-20] MEDS: Furosemide 40 MG TAB PO SCH ×2 (09:19→14:48)
[2018-06-20] MEDS: Docusate 100 MG CAP PO SCH (09:19)
[2018-06-20] MEDS: Oxybutynin 5 MG TAB PO SCH (09:19)
[2018-06-20] MEDS: Amlodipine 5 MG TAB PO SCH (09:20)
[2018-06-20] MEDS: Clopidogrel Bisulfate 75 MG TAB PO SCH (09:20)
[2018-06-20] MEDS: hydrALAZINE 25 MG TAB PO SCH ×2 (09:20→14:48)
[2018-06-20] MEDS: Ferrous Gluconate 324 MG TAB PO SCH (09:20)
[2018-06-20] MEDS: Metoprolol Tartrate 50 MG TAB PO SCH (09:20)
[2018-06-20] MEDS: Heparin 5,000 UNITS/ML VIAL SC SCH ×2 (09:21→14:48)
[2018-06-20] MEDS: Minoxidil 2.5 MG TAB PO SCH (09:21)
--- NOTE | 2018-06-20 12:32 | PDOC.CTH ---
Cardiology Progress Note - Subjective The pt seen and examined. No overnight events. No cardiac complaints. - Objective Vital Signs Temp Pulse Resp BP BP BP Pulse Ox 06/20/18 09:20 68 06/20/18 09:18 174/79 H 06/20/18 07:04 98.9 F 68 14 179/79 H 91 L 06/20/18 03:57 98.8 F 67 16 159/72 H 94 L Weight 171 lb 14.4 oz 06/19/18 06/20/18 06/21/18 06:59 06:59 06:59 Intake Total 720 1340 Output Total 1450 1200 Balance -730 140 - Physical Examination General/Neuro: alert & oriented x3 Neck: no JVD present Lungs: CTA Heart: RRR Abdomen: soft Extremities: other: (2-3+ pitting BLE edema, Rt>Lt) - Telemetry Telemetry Rhythm: SR - Labs Result Diagrams: 06/18/18 05:52 06/20/18 06:01 Troponin/CKMB Troponin I 0.017 ng/mL (< 0.028) 06/15/18 21:37 - Assessment/Plan 1. Acute on chronic diastolic HF with grade II dd - improving with Lasix 40mg PO BID; on Bblocker and TRUDI. 2. HTN urgency - Increased Isosorbide from 10mg to 20mg BID; on Norvasc 5mg BID , Metoprolol 50mg, Lisinopril, and Hydralazine 50mg TID 3. Insulin-dependent DM - managed by PCP 4. CKD - managed by trail maintenance worker 5. TAB - may need Sleep study as outpt 6. Hyperlipidemia - on Statin 7. moderate anemia 8. Carotid US with right subclavian steal - the pt is asymptomatic. Cont to monitor MAR reviewed * DNAR * From Cardiac standpoint, the pt is stable to d/c home when her BP is stable; The pt will f/u with Dr Zhang' office within 2 wks. Pt. seen and eval. by me. I agree with the A/P by the PRODUCTION PATTERN MAKER. Chest clear. RRR. Lower leg edema ( improved ). Review of Systems - Review of Systems Constitutional: reports: no symptoms reported EENTM: reports: no symptoms reported Respiratory: reports: no symptoms reported Cardiac (ROS): reports: no symptoms reported ABD/GI: reports: no symptoms reported : reports: no symptoms reported Musculoskeletal: reports: no symptoms reported Skin: reports: no symptoms reported
[2018-06-20] MEDS ORDERED: Isosorbide Dinitrate 20 MG TAB PO SCH ×2 (12:45→21:00)
--- NOTE | 2018-06-20 13:03 | PRG ---
DATE OF SERVICE: 06/20/2018 SUBJECTIVE: A 62-year-old female, being seen for acute kidney injury. The patient denied any nausea, nausea, or chest pain. OBJECTIVE: CONSTITUTIONAL: On examination, the patient is awake and alert. VITAL SIGNS: Afebrile. Pulse 75, breathing 16, blood pressure 174/79. GENERAL APPEARANCE AND MENTAL STATUS: Fair. HEAD/NECK: Normocephalic. Atraumatic. EYES: EOMI. No deformity. EARS: Clear. No ulcers. NOSE: Intact. No lesions. MOUTH: Clear. No discharge. THROAT: Clear. No exudate. LUNGS: Clear. No crackles. CARDIAC: S1, S2. No rub. ABDOMEN: Benign. Bowel sounds positive. GENITALIA/RECTUM: Bay absent. BACK/EXTREMITIES: Edema 0+. NEUROLOGICAL: Alert and motor intact. SKIN: LYMPHATICS: LABORATORY DATA: Reviewed. ASSESSMENT AND PLAN: 1. Chronic kidney disease stage 3, stable. 2. Hypertension, stable. 3. Anemia, stable. 4. Medication based on GFR appropriate. The patient will follow up to see us in 1 week. Job ID: [id number]
[2018-06-20 13:32] VITALS: BP 162/72; TEMP 98
--- NOTE | 2018-06-21 06:14 | DIS ---
DATE OF ADMISSION: 06/15/2018 DATE OF DISCHARGE: 06/20/2018 PRIMARY CARE PHYSICIAN: Dr. Dyan Ordonez. REASON FOR ADMISSION: CHF exacerbation. DIAGNOSES AT DISCHARGE: 1. Acute on chronic diastolic congestive heart failure, improved. 2. Obstructive sleep apnea. Needs outpatient sleep study. 3. Diabetes mellitus type 2, use as needed short-acting insulin only. 4. Dyslipidemia. 5. Hypertension. 6. Chronic renal failure, stage 3. PROCEDURES: 1. Bilateral renal ultrasound showing no evidence for hydronephrosis. 2. Carotid Doppler showing no sonographic evidence of hemodynamically significant stenosis, but there is retrograde flow in the right vertebral artery compatible with subclavian steal. 3. Echocardiogram showing an ejection fraction of 60% to 65%, grade 2/3 diastolic dysfunction, and elevated right ventricular systolic pressure of 50 mmHg. Small sized pericardial effusion without tamponade. CONSULTATIONS: 1. Nephrology, Dr. Mae. 2. Cardiology, Dr. Zhang. SUMMARY OF HOSPITAL COURSE: This is a 62-year-old female with history of hypertension, diabetes, with 4 weeks of leg swelling, progressively worse. This did not improve with increasing her outpatient Lasix, so she came to the emergency room. She has also been told that she likely has obstructive sleep apnea, needs an outpatient sleep study. The patient was found to be in acute on chronic diastolic congestive heart failure. She had an echocardiogram as above. She had IV Lasix with improvement in her symptoms. She did have some trending up of her creatinine on the IV Lasix. Eventually, this was discontinued and switched to oral Lasix twice a day with stabilization of creatinine of 1.7. She had a workup for kidneys by Dr. Fernandez and Dr. Zhang followed her for her heart during her hospitalization. On day of discharge, the patient was ambulating well in the hill without oxygen and was eager to go home. DISCHARGE MANAGEMENT: Location: Discharged home. Activity: As tolerated. Diet: Diabetic fluid-restricted low-sodium diet. Therapy: Outpatient cardiac rehab. Followup: Follow up with Dr. Ordonez in 7 days, with Dr. Gilbert in 14 days, and with Dr. Zhang as directed. MEDICATIONS: 1. Furosemide 40 mg twice a day, 60 tablets dispensed. 2. Isosorbide dinitrate 10 mg twice a day, 60 tablets dispensed. 3. Hydralazine 50 mg 3 times a day, 90 tablets dispensed. 4. Amlodipine 5 mg daily. 5. Atorvastatin 40 mg daily. 6. Clopidogrel 75 mg daily. 7. Lisinopril 20 mg twice a day. 8. Metoprolol 50 mg twice a day. 9. Minoxidil 2.5 mg daily. 10. Oxybutynin 5 mg twice a day. Arranging the details of this discharge took 32 minutes. Job ID: [id number]
== END 2018-06-20 17:55 | disposition home or self-care (01) | DRG 291 ==
LOC: ERS 14:14 → 2NO 19:17
PROVIDERS: ADMIT Internal Medicine; ATTEND Internal Medicine
DX: I13.0 Hypertensive heart and chronic kidney disease with heart failure and stage 1 through stage 4 chronic kidney disease, or unspecified chronic kidney disease (principal); I50.33 Acute on chronic diastolic (congestive) heart failure; I69.351 Hemiplegia and hemiparesis following cerebral infarction affecting right dominant side; N17.9 Acute kidney failure, unspecified; Z66 Do not resuscitate; E11.22 Type 2 diabetes mellitus with diabetic chronic kidney disease; E78.5 Hyperlipidemia, unspecified; G47.33 Obstructive sleep apnea (adult) (pediatric); D63.1 Anemia in chronic kidney disease; E11.649 Type 2 diabetes mellitus with hypoglycemia without coma; I16.0 Hypertensive urgency; N18.3 Chronic kidney disease, stage 3 (moderate); Z60.2 Problems related to living alone; Z90.49 Acquired absence of other specified parts of digestive tract; Z88.8 Allergy status to other drugs, medicaments and biological substances; Z79.82 Long term (current) use of aspirin; Z79.4 Long term (current) use of insulin; Z79.01 Long term (current) use of anticoagulants; Z79.899 Other long term (current) drug therapy
CPT/HCPCS: 36415; 36416; 71046; 76770; 80048; 80053; 82550; 82570; 82607; 82728; 82746; 83540; 83550; 83690; 83880; 84156; 84484; 85025; 93005; 93306; 93798; 93880; 94760; 96374; J1644; J1825; J1940

== ENCOUNTER 2018-11-22 18:22 | Inpatient (IN) | payer SELFPAY ==
[2018-11-22 19:49] LABS: #Eosinphils 0.1 thou/uL (0.0-0.7); #Lymphocytes 1.3 thou/uL (1.20-3.40); #Monocytes 0.4 thou/uL (0.11-0.59); #Neutrophils 4.7 thou/uL (1.40-6.50); %Basophils 0.4 % (0.0-1.0); %Eosinophils 1.7 % (0.0-10.0); %Lymphocytes 19.9 % (21.0-51.0); %Monocytes 6.3 % (0.0-10.0); %Neutrophils 71.6 % (42.0-75.0); Hemoglobin 10.1 g/dL (12.0-16.0); Mean Corpuscular HGB CONC 31.7 g/dL (32.0-36.0); Mean Corpuscular Hemoglobin 27.2 pg (27.0-31.0); Mean Corpuscular Volume 85.7 fL (78.0-98.0); Mean Platelet Volume 7.8 fL (7.4-10.4); Platelet Count 323 thou/uL (130-400); RBC Distribution Width 15.1 % (11.5-14.5); Red Blood Cell (RBC) Count 3.71 mill/uL (4.20-5.40); White Blood Cell (WBC) Count 6.5 thou/uL (4.8-10.8)
[2018-11-22 20:09] LABS: ALT (SGPT) 19 U/L (8-55); AST (SGOT) 27 U/L (5-34); Albumin 4.1 g/dL (3.4-4.8); Alkaline Phosphatase 105 U/L (40-110); Anion Gap 13 mmol/L (10-20); BUN (Urea Nitrogen) 37 mg/dL (9.8-20.1); Bilirubin, Total 0.4 mg/dL (0.2-1.2); Calc. Creatinine Clearance 0 mL/min (70-130); Calcium 8.7 mg/dL (7.8-10.44); Carbon Dioxide 23 mmol/L (23-31); Chloride 112 mmol/L (98-107); Estimated GFR-MDRD 32; Globulin 3.9 g/dL (2.4-3.5); Glucose 121 mg/dL (80-115); Magnesium 2.5 mg/dL (1.6-2.6); Potassium 5.1 mmol/L (3.5-5.1); Sodium 143 mmol/L (136-145)
--- NOTE | 2018-11-22 20:11 | ULT ---
US Venous Doppler Lt Unilat History: Leg edema Comparison: None. Findings: Real-time grayscale, color, and spectral analysis of the left lower extremity venous system was performed. The common femoral, femoral, proximal portions greater saphenous and deep femoral veins as well as the popliteal veins were interrogated. The posterior tibial vein not seen due to tomasz ma. Normal flow, augmentation, and compression. Impression: Extensive left lower extremity edema without deep venous thrombosis.
[2018-11-22] MEDS ORDERED: Furosemide 100 MG/10 ML VIAL ONE (20:45)
[2018-11-22] MEDS ORDERED: Aspirin Chewable 81 MG TAB ONE (21:34)
[2018-11-22] MEDS ORDERED: hydrALAZINE 25 MG TAB PO SCH (23:30)
[2018-11-22 23:50] LABS: Troponin I Less than 0.010 ng/mL (< 0.028)
[2018-11-23] MEDS ORDERED: Metoprolol Tartrate 50 MG TAB PO SCH (01:30)
[2018-11-23 02:49] LABS: Troponin I Less than 0.010 ng/mL (< 0.028)
[2018-11-23 03:32] LABS: Anion Gap 14 mmol/L (10-20); BUN (Urea Nitrogen) 27 mg/dL (9.8-20.1); Calc. Creatinine Clearance 45 mL/min (70-130); Calcium 8.2 mg/dL (7.8-10.44); Carbon Dioxide 21 mmol/L (23-31); Chloride 111 mmol/L (98-107); Estimated GFR-MDRD 34; Glucose 155 mg/dL (80-115); Potassium 4.5 mmol/L (3.5-5.1); Sodium 141 mmol/L (136-145)
[2018-11-23] MEDS ORDERED: Acetaminophen 650 MG Suppository PR PRN (08:18)
[2018-11-23] MEDS ORDERED: Ondansetron PF 4 MG/2 ML Vial IVP PRN (08:18)
[2018-11-23] MEDS ORDERED: Acetaminophen 325 MG TAB PO PRN (08:18)
[2018-11-23] MEDS ORDERED: Ondansetron ODT 4 MG TAB PO PRN (08:18)
[2018-11-23] MEDS ORDERED: Furosemide 20 MG/2 ML VIAL SLOW IVP SCH ×2 (08:30→14:00)
[2018-11-23 08:32] LABS: #Eosinphils 0.1 thou/uL (0.0-0.7); #Lymphocytes 0.8 thou/uL (1.20-3.40); #Monocytes 0.4 thou/uL (0.11-0.59); #Neutrophils 3.1 thou/uL (1.40-6.50); %Basophils 0.7 % (0.0-1.0); %Eosinophils 2.2 % (0.0-10.0); %Lymphocytes 18.5 % (21.0-51.0); %Neutrophils 69.6 % (42.0-75.0); Hemoglobin 8.6 g/dL (12.0-16.0); Mean Corpuscular HGB CONC 31.6 g/dL (32.0-36.0); Mean Corpuscular Hemoglobin 27.1 pg (27.0-31.0); Mean Corpuscular Volume 85.8 fL (78.0-98.0); Mean Platelet Volume 7.6 fL (7.4-10.4); Platelet Count 263 thou/uL (130-400); RBC Distribution Width 14.8 % (11.5-14.5); Red Blood Cell (RBC) Count 3.17 mill/uL (4.20-5.40); White Blood Cell (WBC) Count 4.4 thou/uL (4.8-10.8)
--- NOTE | 2018-11-23 08:39 | PDOC.HHP ---
Hospitalist HPI - History of Present Illness Shortness of breath and leg swelling History of Present Illness: Mrs. Cole is a pleasant 62 year old woman with a known history of CHF who has had multiple visits in the past for CHF exacerbation. She states she came in to the ER 2 weeks ago and was sent home after being treated with Lasix. She saw her primary care physician last due to worsening fatigue and feeling generally unwell. She was noted to have a UTI and started on antibiotics but did not pick these up until Wednesday. She has only had two doses. She states the fatigue has continued to worsen and for the last 3 days she has been increasingly short of breath with swelling in both legs and abdominal discomfort/distention. She states she normally gets like this and improves with Lasix. ED Course: In the ED she underwent labs which were notable for an elevated D-Dimer of 3. Venous dopplers were done and showed lower leg edema, otherwise no evidence of DVT. She was given 60 mg of IV Lasix. Hospitalist ROS - Review of Systems Constitutional: reports: weakness, malaise. denies: fever, chills, sweats, other Eyes: denies: pain, vision change, conjunctivae inflammation, eyelid inflammation, redness, other ENT: denies: ear pain, ear discharge, nose pain, nose discharge, nose congestion , mouth pain, mouth swelling, throat pain, throat swelling, other Respiratory: reports: SOB with excertion. denies: cough, dry, shortness of breath, hemoptysis, pleuritic pain, sputum, wheezing, other Cardiovascular: reports: edema. denies: chest pain, palpitations, orthopnea, paroxysmal noc. dyspnea, light headedness, other Gastrointestinal: reports: abdominal pain. denies: nausea, vomiting, diarrhea, constipation, melena, hematochezia, other Genitourinary: reports: frequency. denies: dysuria, incontinence, hematuria, retention, other Musculoskeletal: denies: neck pain, shoulder pain, arm pain, back pain, hand pain, leg pain, foot pain, other Skin: denies: rash, lesions, betty, bruising, other Neurological: denies: weakness, numbness, incoordination, change in speech, confusion, seizures, other Hospitalist History - Past Medical History Source: patient Cardiac: reports: CHF, HTN, Hyperlipidemia Pulmonary: reports: Other (sleep apnea) SURGICAL ASSISTANT CERTIFIED: reports: CVA Endocrine: reports: Diabetes - Past Surgical History Past Surgical History: reports: Cholecystectomy, Other (excision of cyst on right shoulder) - Family History Family History: reports: diabetes mellitus - Social History Smoking Status: Never smoker Alcohol: reports: None Drugs: reports: none Living Situation: With Family Activity level: independent ambulation - Exam General Appearance: NAD Eye: PERRL, anicteric sclera ENT: normocephalic atraumatic, no oropharyngeal lesions Neck: supple, symmetric, no lymphadenopathy Heart: RRR, no murmur, no gallops, no rubs, normal peripheral pulses Respiratory: CTAB, no wheezes, no rales, no ronchi, normal chest expansion, rales (Bilateral bases) Gastrointestinal: soft, non-distended, normal bowel sounds, no guarding, no rigidity, tender to palpation (mild general abdominal discomfort with palpation) Extremities: 2+ LE edema Skin: no rashes Neurological: cranial nerve grossly intact Musculoskeletal: normal tone, normal strength, no muscle wasting Psychiatric: normal affect, normal behavior, A&O x 3 Hospitalist Results - Labs Result Diagrams: 11/23/18 08:24 11/23/18 08:24 Lab results: WBC 6.5 thou/uL (4.8-10.8) 11/22/18 19:36 Hgb 10.1 g/dL (12.0-16.0) L 11/22/18 19:36 Hct 31.8 % (36.0-47.0) L 11/22/18 19:36 MCV 85.7 fL (78.0-98.0) 11/22/18 19:36 Plt Count 323 thou/uL (130-400) 11/22/18 19:36 Neutrophils % 71.6 % (42.0-75.0) 11/22/18 19:36 Sodium 141 mmol/L (136-145) 11/23/18 02:15 Potassium 4.5 mmol/L (3.5-5.1) 11/23/18 02:15 Chloride 111 mmol/L (98-107) H 11/23/18 02:15 Carbon Dioxide 21 mmol/L (23-31) L 11/23/18 02:15 BUN 27 mg/dL (9.8-20.1) H 11/23/18 02:15 Creatinine 1.54 mg/dL (0.6-1.1) H 11/23/18 02:15 Glucose 155 mg/dL (80-115) H 11/23/18 02:15 Calcium 8.2 mg/dL (7.8-10.44) 11/23/18 02:15 Total Bilirubin 0.4 mg/dL (0.2-1.2) 11/22/18 19:35 AST 27 U/L (5-34) 11/22/18 19:35 ALT 19 U/L (8-55) 11/22/18 19:35 Alkaline Phosphatase 105 U/L (40-110) 11/22/18 19:35 Troponin I Less than 0.010 ng/mL (< 0.028) 11/23/18 02:12 B-Natriuretic Peptide 2338.8 pg/mL (0-100) H 11/22/18 19:36 Serum Total Protein 8.0 g/dL (6.0-8.3) 11/22/18 19:35 Albumin 4.1 g/dL (3.4-4.8) 11/22/18 19:35 - Radiology Interpretation US - venous Status: report reviewed by dc Hospitalist H&P A/P - Problem (1) UTI (urinary tract infection) Status: Acute (2) Acute on chronic diastolic heart failure Code(s): I50.33 - ACUTE ON CHRONIC DIASTOLIC (CONGESTIVE) HEART FAILURE Status : Acute (3) Chronic renal failure, stage 3 (moderate) Code(s): N18.3 - CHRONIC KIDNEY DISEASE, STAGE 3 (MODERATE) Status: Chronic (4) DM2 (diabetes mellitus, type 2) Status: Chronic Qualifiers: Diabetes mellitus longterm insulin use: with terminal gauger use (5) Dyslipidemia Code(s): E78.5 - HYPERLIPIDEMIA, UNSPECIFIED Status: Chronic (6) Hypertension Code(s): I10 - ESSENTIAL (PRIMARY) HYPERTENSION Status: Chronic - Plan Plan: Will obtain a baseline Chest Xray. Echo cancelled as she had one in 06/2018. Continue Lasix IV 20 mg BID as well as fluid restriction. Hold TRUDI inhibitor given renal function. UA/UCx, if positive will give abx. Post void bladder scan to ensure not retaining. Cardiac rehab (inpt/outpt) consult. Palliative Care, given chronic issue. Walking program consulted. Monitor glucose, ISS. Will discuss with attending for further recommendations. CODE STATUS: FULL Surrogate decision maker is her Savanna Cole, her daughter. ADDENDUM: CXR showed progressive right moderate pleural effusion in addition to chronic CHF changes. Discussed with Dr. Britt who agrees with continued diuresis, recommended Lasix 20 mg IV Q6H. If does not respond, advise consulting her transportation sales consultant Dr. Zhang. Repeat CXR in tomorrow AM.
--- NOTE | 2018-11-23 08:50 | RAD ---
Exam: Chest 2 views HISTORY:Short of breath, CHF Comparison: October 07, 2018 FINDINGS: Lungs: Right basilar opacity, consistent with moderate right effusion, which has increased in volume. There is adjacent right basilar opacity. Cardiac silhouette:Enlarged cardiac silhouette Pulmonary vessels: Prominent pulmonary vasculature Pleural Spaces: Increasing right pleural effusion, as above Pneumothorax: None Osseous abnormalities: None of acuity. IMPRESSION: Progressive right effusion, superimposed upon findings of CHF.
[2018-11-23 08:54] LABS: Lactic Acid 1.9 mmol/L (0.5-2.2)
[2018-11-23 08:56] LABS: Magnesium 2.4 mg/dL (1.6-2.6); Potassium 4.6 mmol/L (3.5-5.1)
[2018-11-23] MEDS ORDERED: Aspirin Chewable 81 MG TAB PO SCH (09:00)
[2018-11-23] MEDS ORDERED: Lisinopril 20 MG TAB PO SCH (09:00)
[2018-11-23] MEDS ORDERED: Dextrose 50% Abboject 50 ML SYRINGE SLOW IVP PRN (09:24)
[2018-11-23] MEDS ORDERED: Dextrose 5% in Water 1,000 ML IV PRN (09:24)
[2018-11-23] MEDS ORDERED: HumaLOG 300 UNITS/3 ML VIAL SC PRN (09:24)
[2018-11-23] MEDS: Clopidogrel Bisulfate 75 MG TAB PO SCH (11:19)
[2018-11-23] MEDS: Isosorbide Dinitrate 20 MG TAB PO SCH ×2 (11:19→20:35)
[2018-11-23] MEDS: hydrALAZINE 25 MG TAB PO SCH ×3 (11:19→20:37)
[2018-11-23] MEDS: Minoxidil 2.5 MG TAB PO SCH (11:20)
[2018-11-23] MEDS: Atorvastatin Calcium 40 MG TAB PO SCH (11:20)
[2018-11-23] MEDS: Metoprolol Tartrate 50 MG TAB PO SCH ×2 (11:20→20:36)
[2018-11-23] MEDS: Amlodipine 5 MG TAB PO SCH (11:20)
[2018-11-23] MEDS: Famotidine/PF 20 mg/2ml Vial SLOW IVP SCH ×2 (11:21→20:35)
[2018-11-23] MEDS: Oxybutynin 5 MG TAB PO SCH ×2 (11:21→20:36)
[2018-11-23] MEDS ORDERED: Furosemide 40 MG/4 ML VIAL SLOW IVP SCH (14:00)
[2018-11-23] MEDS: Furosemide 20 MG/2 ML VIAL SLOW IVP SCH ×2 (14:36→20:35)
[2018-11-23 18:28] LABS: Hemoglobin 8.3 g/dL (12.0-16.0)
[2018-11-23 21:08] LABS: Bacteria/HPF 4+ HPF (None Seen); Bilirubin Negative (Negative); Blood, Urine Negative (Negative); Clarity Turbid (Clear); Glucose, Urine (Dipstick) Normal (Negative); Leukocyte Negative Leu/uL (Negative); Nitrite 1+ (Negative); Protein, Urine (Dipstick) 200 mg/dL (Neg-Trace); RBC/HPF 0-3 HPF (0-3); Squamous Epithelial 0-3 HPF (0-3); Urobilinogen Normal mg/dL (Less than 2)
[2018-11-23 21:11] LABS: Urine Culture Reflex Yes Yes
[2018-11-24] MEDS: Furosemide 20 MG/2 ML VIAL SLOW IVP SCH ×3 (03:18→21:24)
[2018-11-24 05:35] LABS: #Eosinphils 0.1 thou/uL (0.0-0.7); #Monocytes 0.4 thou/uL (0.11-0.59); #Neutrophils 3.4 thou/uL (1.40-6.50); %Basophils 0.3 % (0.0-1.0); %Eosinophils 2.4 % (0.0-10.0); %Lymphocytes 20.3 % (21.0-51.0); %Monocytes 7.9 % (0.0-10.0); %Neutrophils 69.2 % (42.0-75.0); Hemoglobin 8.1 g/dL (12.0-16.0); Mean Corpuscular Hemoglobin 27.4 pg (27.0-31.0); Mean Corpuscular Volume 85.5 fL (78.0-98.0); Mean Platelet Volume 7.8 fL (7.4-10.4); Platelet Count 260 thou/uL (130-400); Red Blood Cell (RBC) Count 2.95 mill/uL (4.20-5.40); White Blood Cell (WBC) Count 4.9 thou/uL (4.8-10.8)
[2018-11-24 05:56] LABS: Anion Gap 11 mmol/L (10-20); BUN (Urea Nitrogen) 40 mg/dL (9.8-20.1); Calc. Creatinine Clearance 39 mL/min (70-130); Calcium 7.8 mg/dL (7.8-10.44); Carbon Dioxide 23 mmol/L (23-31); Chloride 111 mmol/L (98-107); Estimated GFR-MDRD 28; Glucose 127 mg/dL (80-115); Potassium 4.6 mmol/L (3.5-5.1); Sodium 140 mmol/L (136-145)
--- NOTE | 2018-11-24 08:06 | RAD ---
Exam: Chest 2 views: HISTORY: Moderate pleural effusion follow-up COMPARISON: 11/23/2018 FINDINGS: Overall stable appearing bilateral vascular congestion, cardiomegaly, and right pleural effusion. Lef t-sided loop recorder. IMPRESSION: Stable-appearing chest. Continued short-term follow-up for clearing or stability.
[2018-11-24] MEDS: hydrALAZINE 25 MG TAB PO SCH ×3 (09:08→21:22)
[2018-11-24] MEDS: Amlodipine 5 MG TAB PO SCH (09:08)
[2018-11-24] MEDS: Clopidogrel Bisulfate 75 MG TAB PO SCH (09:08)
[2018-11-24] MEDS: Atorvastatin Calcium 40 MG TAB PO SCH (09:08)
[2018-11-24] MEDS: Famotidine/PF 20 mg/2ml Vial SLOW IVP SCH (09:08)
[2018-11-24] MEDS: Isosorbide Dinitrate 20 MG TAB PO SCH ×2 (09:09→21:21)
[2018-11-24] MEDS: Minoxidil 2.5 MG TAB PO SCH (09:09)
[2018-11-24] MEDS: Metoprolol Tartrate 50 MG TAB PO SCH ×2 (09:09→21:23)
[2018-11-24] MEDS: Oxybutynin 5 MG TAB PO SCH ×2 (09:11→21:22)
[2018-11-24] MEDS: HumaLOG 300 UNITS/3 ML VIAL SC PRN (12:30)
[2018-11-24] MEDS ORDERED: Cefdinir 300 MG CAP PO SCH (12:45)
[2018-11-24] MEDS ORDERED: Furosemide 20 MG/2 ML VIAL SLOW IVP SCH (14:00)
--- NOTE | 2018-11-24 15:21 | PDOC.PALCO ---
Palliative Care Consult - Consult Details Requesting Physician: Dr Christianson Reason for Consult: goals of care, assistance with communication prognosis/ disease Family Members Present: none - Pertinent HPI 62 year old female who states she presented to the emergency room two weeks ago secondary to increase in fluid, was treated with IV lasix and discharged home. Presented again to the hospital for increase in shortness of breath, increase in lower extremity swelling that worsened over the past 3 days. In review patient states she has difficulty in purchasing her medications and was seen previously by Dr Zhang. States she hsa no insurance at the time but Medicaid will begin Feb - Social History Smoking Status: Never smoker Smoking: no tobacco exposure Alcohol Use: none Drug Use History: none Living Situation: independent - Medications MAR Reviewed: Yes - Allergies Allergies/Adverse Reactions: Allergies Allergy/AdvReac Type Severity Reaction Status Date / Time ibuprofen AdvReac Mild Verified 11/22/18 22:39 - Subjective Complains of increase in lower extremity swelling, increase in abdominal girth, intermittent urinary incontinence. Otherwise 10 point review of systems negative. - Objective Vital Signs: Vital Signs - Most Recent Temp Pulse Resp BP Pulse Ox 98.3 F 57 L 20 134/60 93 L 11/24/18 11:42 11/24/18 11:42 11/24/18 11:42 11/24/18 11:42 11/24/18 11:42 Palliative Performance Scale: 60 - Physical Exam Constitutional: NAD HEENT: PERRLA, moist MMs, EOMI Deviation from normal: mild push of speech with conversation, respiratory wheeze to right mid lobe Gastrointestinal: soft, positive bowel sounds Deviation from normal: distended, tympai on percussion Musculoskeletal: edema present Neurological: moves all 4 limbs Skin: normal turgor, cap refill <2 seconds - Problem List (1) Palliative care encounter Code(s): Z51.5 - ENCOUNTER FOR PALLIATIVE CARE Current Visit: Yes Status: Acute (2) Acute on chronic diastolic heart failure Code(s): I50.33 - ACUTE ON CHRONIC DIASTOLIC (CONGESTIVE) HEART FAILURE Current Visit: No Status: Acute (3) Chronic renal failure, stage 3 (moderate) Code(s): N18.3 - CHRONIC KIDNEY DISEASE, STAGE 3 (MODERATE) Current Visit: No Status: Chronic (4) DM2 (diabetes mellitus, type 2) Current Visit: No Status: Chronic Qualifiers: Diabetes mellitus custodial insulin use: with director long term care use - Plan/Recommendations Plan:Discussed disease process with patient and disease trajectory. Has difficulity in paying for medicaitons at times. States that she gains weight at times with increase in edema and it is getting more difficult to manage. Was seen in the past by Heart Failure. *Will check to see if DISRIP is an option *Ask HF to help with follow up visit prior to patient having active Medicaid *Patient states she wishes to be a DNAR *Have Jeanine Londono follow up and discuss OOHDNAR and Advance Directive Discussed with Dr Britt option of discharging patient with instructions on fluctuating Diuretic for weight gain. [45] minutes spent on this encounter with >50% of the time in counseling and coordination of care. Thank you for this very appropriate consult.
--- NOTE | 2018-11-24 19:23 | PRG ---
DATE OF SERVICE: 11/24/2018 SUBJECTIVE: A 62-year-old female with congestive heart failure, diabetes mellitus type 2, hypertension, hyperlipidemia, and CKD stage 3, presented to the hospital with shortness of breath and bilateral lower extremity swelling. She was seen in the emergency room 2 weeks ago for congestive heart failure exacerbation. She was also recently diagnosed with UTI. She also had generalized fatigue. No fever or chills reported. She denies any chest pain, palpitations, or syncope. REVIEW OF SYSTEMS: No nausea, vomiting, diarrhea, or focal neurologic deficit. Telemetry monitoring by my review showed sinus bradycardia. PHYSICAL EXAMINATION: VITAL SIGNS: Temperature 98.3, pulse 57, respirations 20, blood pressure of 134/60 with O2 saturation of 93% on room air. GENERAL: A 62-year-old female, in no significant distress at rest. LUNGS: Showed diminished air entry at bases with scattered rhonchi. No significant accessory muscle use. HEART: S1, S2 present. Regular rate and rhythm. No rubs or gallops. ABDOMEN: Soft, nontender. Bowel sounds present. EXTREMITIES: Showed bilateral lower extremity 2 to 3+ edema without any calf tenderness. SKIN: Warm and dry. LYMPH NODES: No palpable lymph nodes in the neck. DIAGNOSTIC TESTS: Echocardiogram earlier this year showed grade 2/3 diastolic dysfunction with ejection fraction of 60% to 65%. Hemoglobin 8.1 with hematocrit 25.2. Baseline hemoglobin is around 8 to 9. Creatinine was 1.83 and 1.54 yesterday. Urinalysis showed 11 to 20 wbc's with 4+ bacteria. Urine culture growing E coli. Sensitivity is pending at this time. Chest x-ray by my review showed bilateral pulmonary vascular congestion along with right-sided pleural effusion. IMPRESSION: 1. Acute on chronic diastolic heart failure exacerbation. 2. Acute kidney injury on chronic kidney disease stage 3 due to cardiorenal syndrome/diuretics. 3. Diabetes mellitus, type 2. 4. Hypertension. 5. Dyslipidemia. 6. Obstructive sleep apnea, not on CPAP. 7. Chronic anemia. 8. Obesity with a BMI of 33.8. 9. Escherichia coli urinary tract infection. 10. Overactive bladder. PLAN: We will reduce Lasix to 20 mg b.i.d. due to worsening creatinine. Palliative Care Team has been consulted. We will change to inpatient status. We will change Pepcid to p.o. Continue hydralazine, nitrate, beta jean marie, minoxidil. We will start oral antibiotics for UTI. Continue Plavix. Recheck labs in a.m. Continue fluid restriction. Continue cardiac rehabilitation. We will consult [facility] for assistance. Code status was verified as do not resuscitate. Job ID: [id number]
[2018-11-24] MEDS ORDERED: Famotidine 20 MG TAB PO SCH (21:00)
[2018-11-25 05:19] LABS: Hemoglobin 8.4 g/dL (12.0-16.0); Platelet Count 264 thou/uL (130-400)
[2018-11-25 05:48] LABS: Anion Gap 13 mmol/L (10-20); BUN (Urea Nitrogen) 42 mg/dL (9.8-20.1); Calc. Creatinine Clearance 33 mL/min (70-130); Calcium 7.7 mg/dL (7.8-10.44); Carbon Dioxide 21 mmol/L (23-31); Chloride 110 mmol/L (98-107); Estimated GFR-MDRD 23; Glucose 120 mg/dL (80-115); Magnesium 2.3 mg/dL (1.6-2.6); Potassium 4.6 mmol/L (3.5-5.1); Sodium 139 mmol/L (136-145)
[2018-11-25] MEDS: Atorvastatin Calcium 40 MG TAB PO SCH (08:10)
[2018-11-25] MEDS: Oxybutynin 5 MG TAB PO SCH ×2 (08:10→23:11)
[2018-11-25] MEDS: Amlodipine 5 MG TAB PO SCH (08:11)
[2018-11-25] MEDS: Cefdinir 300 MG CAP PO SCH (08:11)
[2018-11-25] MEDS: hydrALAZINE 25 MG TAB PO SCH ×3 (08:11→23:10)
[2018-11-25] MEDS: Clopidogrel Bisulfate 75 MG TAB PO SCH (08:11)
[2018-11-25] MEDS: Metoprolol Tartrate 50 MG TAB PO SCH (08:12)
[2018-11-25] MEDS: Isosorbide Dinitrate 20 MG TAB PO SCH (08:12)
[2018-11-25] MEDS: Minoxidil 2.5 MG TAB PO SCH (08:12)
[2018-11-25] MEDS: Famotidine 20 MG TAB PO SCH (08:12)
[2018-11-25] MEDS: Furosemide 20 MG/2 ML VIAL SLOW IVP SCH ×2 (08:13→23:11)
[2018-11-25] MEDS ORDERED: Metolazone 5 MG TAB PO SCH (10:45)
[2018-11-25] MEDS ORDERED: Isosorbide Dinitrate 20 MG TAB PO SCH (11:00)
[2018-11-25] MEDS ORDERED: Minoxidil 2.5 MG TAB PO SCH (11:00)
[2018-11-25] MEDS ORDERED: Carvedilol 6.25 MG TAB PO SCH (11:00)
[2018-11-25] MEDS: HumaLOG 300 UNITS/3 ML VIAL SC PRN (11:07)
[2018-11-25] MEDS ORDERED: Polyethylene Glycol 3350 17 GM Packet PO PRN (12:12)
--- NOTE | 2018-11-25 13:01 | CON ---
DATE OF CONSULTATION: 11/25/2018 INDICATION FOR CONSULTATION: A 62-year-old female with a history of diastolic heart failure. She was presented again with lower extremity edema. HISTORY OF PRESENT ILLNESS: This is a very unfortunate 62-year-old female, who has a history of nonischemic cardiomyopathy, which is diastolic in nature and has a history of hypertension. She has had bilateral lower extremity edema. She presented to the hospital after she complained of worsening of her lower extremity edema and shortness of breath. She denied any chest pain. She recently underwent an echocardiogram in the office on June 2018, which showed an ejection fraction of 60% to 65% with grade 2 diastolic dysfunction with mild left ventricular hypertrophy and mildly dilated left atrium. She also had mild right atrial dilatation as well as mild mitral valve regurgitation. The tricuspid valve also had mild regurgitation. She also had elevated right ventricular systolic pressure of 50 mmHg compatible with a probably [id number] pulmonary hypertension. She also had a very small pericardial effusion noted. We continued to advise her to wear compression stockings or continue with the medication. She said she was exercising when I saw her in the office on a daily basis without any significant complaints. She does have obstructive sleep apnea, but I do not know that she wears a sleep mask, and she probably needs to have a sleep study as an outpatient. Normally, she does not check her blood pressure at home and has had significant problems with blood pressure in the past. When she was seen in the office last, her blood pressure actually was under pretty good control at 134/56, but since admission here, her blood pressure has been the lowest, actually was 157/69, and this morning, it was back up to 180/81. Her renal function also seems to be deteriorating some. PAST MEDICAL HISTORY: Significant for hypertension, dyslipidemia, type 2 diabetes, diastolic heart failure. She has chronic kidney disease, managed by Dr. Mae. She has obstructive sleep apnea. She has anemia. She has had apparently according to her multiple CVAs in the past. The last episode was in 2017. FAMILY HISTORY: Noncontributory. SOCIAL HISTORY: She does not smoke. She has no significant alcohol use. She drinks 1 or 2 cups of coffee a day. ALLERGIES: NONE. MEDICATIONS: Prior to admission include, 1. Hydralazine 50 mg three times a day. 2. Lasix 40 mg a day. 3. Lisinopril 20 mg a day. 4. Oxybutynin 5 mg once a day. 5. Aspirin 325 mg a day. 6. Amlodipine 5 mg a day. 7. Atorvastatin 40 mg a day. 8. Minoxidil 2.5 mg a day. 9. Metoprolol 50 mg twice a day. 10. Plavix 75 mg a day. REVIEW OF SYSTEMS: HEENT: She denied any new HEENT complaints such as visual changes hearing loss, or tinnitus. PULMONARY: She had no significant pulmonary complaints, except for some dyspnea on exertion. GI/: She had no GI or complaints, except she did have some lower abdominal discomfort on examination and has been also noted to have a urinary tract infection. EXTREMITIES: She did complain of the edema. She had no claudication type symptoms. NEUROLOGIC: No history of seizures or syncopes, but does have some history of CVAs in the past. PHYSICAL EXAMINATION: GENERAL: Reveals a well-developed, well-nourished female, who is in no acute distress. VITAL SIGNS: Her blood pressure at this time is 180/81, earlier was 157/69, heart rate is in the 60s and shows a sinus rhythm, respiratory rate is 17, O2 saturations are 95%. HEENT: Shows the head to be normocephalic and atraumatic. Carotid pulses are present. There were no bruits. CHEST: Has some decreased breath sounds in the left base with some mild rales, somewhat coarser than I would expect. Otherwise, I do not see any significant abnormalities from the Pulmonary standpoint. CARDIOVASCULAR:: She has a regular rate and rhythm. She has a very soft systolic murmur of the upper sternal border, which radiates to the carotid area. She does have elevation of the JVD almost to the angle of the jaw. ABDOMEN: Shows obesity with positive bowel sounds. EXTREMITIES: Show two to 3+ lower extremity edema. Pedal pulses are present. NEUROLOGIC: She appears to be intact. I do not notice any gross focal motor deficits. LABORATORY DATA: Shows a hemoglobin of 8.4, hematocrit 26.4, this could be dilutional, WBC of 4.9. Sodium is 139, potassium 4.6, BUN was 42 with a creatinine of 2.16, and blood sugar was 120, calcium was 7.7. Her creatinine back in November 23 was 1.54. Her urinalysis shows 4+ bacteria in the urine, which has been found by culture to be E coli. EKG shows normal sinus rhythm. Her chest x-ray yesterday shows some bilateral vascular congestion with cardiomegaly and a right pleural effusion. She also has a loop recorder, which has been implanted. IMPRESSION: 1. Middle-aged female with chronic diastolic heart failure. We will continue her diuretics. We will try to give at least one dose to see how she responds to this. We will stop her Norvasc. This may be contributing some to the lower extremity edema. We will switch her from metoprolol to Coreg. We will also start Ranexa for her diastolic dysfunction and see if this will help some. Also, increase her isosorbide to 20 mg three times a day to help with the blood pressure. We will see how she responds. 2. Hypertension. This is still a significant problem in this lady. We may need to have the critical care clinical nurse specialist evaluate her and assist with hypertension. 3. Type 2 diabetes. This appears to be under relatively good control at this time. We will continue same medications. 4. Stage 3 chronic kidney disease. She has been seen by critical care clinical nurse specialist in the past. Normally, she follows up with Dr. Mae, and we might ask him for his assistance. 5. History of hyperlipidemia. She will continue her statin medications. 6. Sleep apnea. I do not know if she has a true diagnosis of this, but she may need to undergo a sleep study or try a CPAP mask, as this may also help with some of the lower extremity edema. 7. History of anemia. Given her congestive heart failure, we will certainly not want the hemoglobin to fall less than 8. 8. History of cerebrovascular accident. She appears to be intact at this time with no evidence of new CVAs. 9. Urinary tract infection. We will continue with the antibiotics. Thank you very much asking us to take care of this lady with her diastolic dysfunction and now worsening of her renal function. Job ID: [id number] [facility] HOSPITALLazarus
[2018-11-25] MEDS: Carvedilol 6.25 MG TAB PO SCH (16:36)
[2018-11-25 17:45] VITALS: BMI 33.6
[2018-11-25] MEDS: Senokot S 8.6-50 MG TAB PO SCH (23:11)
[2018-11-26] MEDS: Isosorbide Dinitrate 20 MG TAB PO SCH ×3 (01:27→21:22)
--- NOTE | 2018-11-26 07:22 | PDOC.HOSPP ---
- Subjective Encounter Date: 11/25/18 Encounter Time: 09:00 Subjective: Patient seen and examined for CHF exacerbation. Feels the same. No other complaints. No overnight events - Objective Vital Signs & Weight: Vital Signs (12 hours) Temp Pulse Resp BP BP BP Pulse Ox 11/26/18 04:00 98.4 F 59 L 20 168/73 H 92 L 11/25/18 23:10 67 149/79 H 11/25/18 20:30 97.8 F 67 18 157/70 H 98 Weight Admit Weight 171 lb Weight 172 lb 3.2 oz I&O: 11/25/18 11/26/18 11/27/18 06:59 06:59 06:59 Intake Total 480 Balance 480 Result Diagrams: 11/25/18 04:56 11/25/18 04:56 Additional Labs: Accuchecks 11/26/18 11/25/18 11/25/18 05:40 20:54 17:06 POC Glucose 137 H 186 H 179 H 11/25/18 11/25/18 10:51 08:33 POC Glucose 181 H 124 H EKG Reviewed by me: Yes (Tele SR) Hospitalist ROS - Review of Systems Cardiovascular: reports: orthopnea, edema. denies: chest pain, palpitations, paroxysmal noc. dyspnea, light headedness, other Gastrointestinal: denies: nausea, vomiting, abdominal pain, diarrhea, constipation, melena, hematochezia, other - Medication Medications: Active Medications Generic Name Dose Route Start Last Admin Trade Name Freq PRN Reason Stop Dose Admin Acetaminophen 650 mg 11/23/18 08:18 11/24/18 23:23 Tylenol PO 650 mg Q4H PRN Administration Headache/Fever/Mild Pain (1-3) Atorvastatin Calcium 40 mg 11/23/18 09:00 11/25/18 08:10 Lipitor PO 40 mg DAILY GOMEZ Administration Carvedilol 6.25 mg 11/25/18 17:00 11/25/18 16:36 Coreg PO 6.25 mg BID-WM GOMEZ Administration Cefdinir 300 mg 11/25/18 09:00 11/25/18 08:11 Omnicef PO 300 mg DAILY GOMEZ Administration Clopidogrel Bisulfate 75 mg 11/23/18 09:00 11/25/18 08:11 Plavix PO 75 mg DAILY GOMEZ Administration Famotidine 20 mg 11/25/18 09:00 11/25/18 08:12 Pepcid PO 20 mg DAILY GOMEZ Administration Furosemide 20 mg 11/24/18 21:00 11/25/18 23:11 Lasix SLOW IVP 20 mg BID GOMEZ Administration Hydralazine HCl 50 mg 11/23/18 09:00 11/25/18 23:10 Apresoline PO 50 mg TID GOMEZ Administration Insulin Human Lispro 0 units 11/23/18 09:24 11/25/18 11:07 Humalog SC 2 unit .MILD SLIDING SCALE PRN Administration Mild Correctional Scale Isosorbide Dinitrate 20 mg 11/25/18 21:00 11/26/18 01:27 Isordil PO Not Given BID GOMEZ Oxybutynin Chloride 5 mg 11/23/18 09:00 11/25/18 23:11 Ditropan PO 5 mg BID GOMEZ Administration Polyethylene Glycol 17 gm 11/25/18 12:12 11/25/18 12:28 Miralax PO 17 gm DAILY PRN Administration Constipation Ranolazine 500 mg 11/25/18 21:00 11/25/18 23:10 Ranexa PO 500 mg BID GOMEZ Administration Senna/Docusate Sodium 2 tab 11/25/18 21:00 11/25/18 23:11 Senokot S PO 2 tab BID GOMEZ Administration Sodium Chloride 10 ml 11/23/18 09:00 11/25/18 23:12 Flush - Normal Saline IVF 10 ml Q12HR GOMEZ Administration Sodium Chloride 10 ml 11/22/18 22:29 11/24/18 03:19 Flush - Normal Saline IVF 10 ml PRN PRN Administration Saline Flush - Exam General Appearance: NAD Heart: RRR, no rubs Respiratory: no wheezes, no ronchi Respiratory - other findings: dec AE at bases Gastrointestinal: soft, non-tender, non-distended, normal bowel sounds Extremities: no cyanosis, 2+ LE edema Hosp A/P - Plan IMPRESSION: 1. Acute on chronic diastolic heart failure exacerbation. 2. DAVI on CKD 3 due to cardiorenalsyndrome/diuretics. 3. Diabetes mellitus, type 2. 4. Hypertension. 5. Dyslipidemia. 6. Obstructive sleep apnea, not on CPAP. 7. Chronic anemia. 8. Obesity with a BMI of 33.8. 9. Escherichia coli urinary tract infection. 10. Overactive bladder. PLAN: Consult Cardio/Nephro Cont gentle diuretics with fluid restriction Cont hydralazine, nitrate, beta jean marie, minoxidil. Cont Atbx AM labs
[2018-11-26 08:13] LABS: Anion Gap 14 mmol/L (10-20); BUN (Urea Nitrogen) 49 mg/dL (9.8-20.1); Calc. Creatinine Clearance 30 mL/min (70-130); Carbon Dioxide 20 mmol/L (23-31); Chloride 110 mmol/L (98-107); Estimated GFR-MDRD 20; Glucose 121 mg/dL (80-115); Magnesium 2.3 mg/dL (1.6-2.6); Potassium 5.2 mmol/L (3.5-5.1); Sodium 139 mmol/L (136-145)
[2018-11-26] MEDS: Carvedilol 6.25 MG TAB PO SCH ×2 (09:31→17:27)
[2018-11-26] MEDS: Clopidogrel Bisulfate 75 MG TAB PO SCH (09:32)
[2018-11-26] MEDS: Cefdinir 300 MG CAP PO SCH (09:32)
[2018-11-26] MEDS: Atorvastatin Calcium 40 MG TAB PO SCH (09:32)
[2018-11-26] MEDS: hydrALAZINE 25 MG TAB PO SCH ×3 (09:32→21:22)
[2018-11-26] MEDS: Famotidine 20 MG TAB PO SCH (09:32)
[2018-11-26] MEDS: Oxybutynin 5 MG TAB PO SCH ×2 (09:33→21:23)
[2018-11-26] MEDS: Senokot S 8.6-50 MG TAB PO SCH ×2 (09:33→21:21)
[2018-11-26] MEDS: Furosemide 20 MG/2 ML VIAL SLOW IVP SCH (09:33)
[2018-11-26] MEDS: Minoxidil 2.5 MG TAB PO SCH (09:33)
--- NOTE | 2018-11-26 10:56 | ULT ---
Renal sonogram HISTORY: Acute renal insufficiency. FINDINGS: Right kidney measures up to 10.8 cm and the left 10.1 cm. There is thickening of the cortex of each kidney. No hydronephrosis or mass. Urinary bladder is unremarkable. Free fluid is seen within the abdomen just superior to the bladder. Small amount of right pleural fluid partially visual ized. IMPRESSION: No evidence of urinary tract obstruction. Mild diffuse bilateral cortical atrophy. Free fluid within the abdomen and right pleural space.
[2018-11-26] MEDS ORDERED: Furosemide 40 MG/4 ML VIAL SLOW IVP SCH (11:30)
[2018-11-26 11:35] LABS: Anion Gap 14 mmol/L (10-20); BUN (Urea Nitrogen) 48 mg/dL (9.8-20.1); Calc. Creatinine Clearance 30 mL/min (70-130); Calcium 7.9 mg/dL (7.8-10.44); Carbon Dioxide 21 mmol/L (23-31); Chloride 109 mmol/L (98-107); Estimated GFR-MDRD 20; Glucose 190 mg/dL (80-115); Potassium 4.9 mmol/L (3.5-5.1); Sodium 139 mmol/L (136-145)
--- NOTE | 2018-11-26 11:49 | CON ---
DATE OF CONSULTATION: REASON FOR CONSULTATION: Elevated creatinine. HISTORY OF PRESENT ILLNESS: This is a very pleasant 62-year-old female with a baseline creatinine of 1.6, creatinine increased to 2.3, so I was consulted for further evaluation and workup. The patient denies any nausea, vomiting, or chest pain. The patient does have a history of diastolic heart failure with bilateral edema. PAST MEDICAL HISTORY: Hypertension, acute kidney injury, CKD, sleep apnea, history of CVA. SOCIAL HISTORY: No alcohol or drug use. SOCIAL HISTORY: Negative for ESRD. ALLERGIES: REVIEWED. HOME MEDICATIONS: List reviewed. HOSPITAL MEDICATIONS: List reviewed. REVIEW OF SYSTEMS: Fifteen-point review of systems was performed, negative, except for positives noted above. GENERAL: HEAD: NECK: No swelling or lumps. NOSE: No epistaxis or discharge. EYES: No diplopia or pain. RESPIRATORY: CARDIOVASCULAR: GASTROINTESTINAL: /ADMINISTRATIVE JOB TITLES: MUSCULOSKELETAL: No joint pain. NEUROPSYCHIATIC SYSTEMS: No suicidal ideation. No ideation. SKIN: Denies any rash or ulcer. CONSTITUTIONAL: No fever or chills. PHYSICAL EXAMINATION: See above. Awake, alert, in no acute distress. VITAL SIGNS: Afebrile, pulse 75, breathing 16, blood pressure 149/79. GENERAL APPEARANCE AND MENTAL STATUS: Fair. HEAD/NECK: Normocephalic. Atraumatic. EYES: EOMI. No deformity. EARS: Clear. No ulcers. NOSE: Intact. No lesions. MOUTH: Clear. No discharge. THROAT: Clear. No exudate. LUNGS: Clear. No crackles. CARDIAC: S1, S2. No rub. ABDOMEN: Benign. Bowel sounds positive. GENITALIA/RECTUM: Bay absent. BACK/EXTREMITIES: Edema 0+. NEUROLOGICAL: Alert and motor intact. SKIN: LYMPHATICS: LABORATORY DATA: Reviewed. ASSESSMENT AND PLAN: 1. Stage 4 chronic kidney disease with acute kidney injury due to acute tubular necrosis, most likely due to cardiorenal syndrome. No urgent indication for dialysis. 2. Hyperkalemia. Start low-potassium diet. 3. Congestive heart failure. 4. Anemia, stable. No indication for dialysis. The patient will need Epogen therapy once the blood pressure is controlled. Job ID: [id number]
[2018-11-26] MEDS: NIFEdipine XL 30 MG TAB PO SCH (12:24)
--- NOTE | 2018-11-26 22:05 | PDOC.HOSPP ---
- Subjective Encounter Date: 11/26/18 Encounter Time: 11:30 Subjective: Patient seen and examined for CHF. No CP. SOB/Edema improving. No other complaints. No overnight events - Objective Vital Signs & Weight: Vital Signs (12 hours) Temp Pulse Pulse Pulse Resp BP BP 11/26/18 21:22 70 11/26/18 19:41 98 F 70 16 11/26/18 17:27 65 149/79 H 11/26/18 12:49 76 64 153/68 H 11/26/18 12:24 65 11/26/18 12:02 98.1 F 65 15 BP BP Pulse Ox Pulse Ox Pulse Ox 11/26/18 21:22 11/26/18 19:41 135/63 96 11/26/18 17:27 11/26/18 12:49 152/66 H 90 L 93 L 11/26/18 12:24 11/26/18 12:02 146/95 H 92 L Weight Admit Weight 171 lb Weight 181 lb 1.6 oz I&O: 11/25/18 11/26/18 11/27/18 06:59 06:59 06:59 Intake Total 480 240 Output Total 1000 Balance 480 -760 Result Diagrams: 11/25/18 04:56 11/26/18 11:01 Additional Labs: Accuchecks 11/26/18 11/26/18 11/26/18 21:12 16:58 10:51 POC Glucose 226 H 192 H 223 H 11/26/18 05:40 POC Glucose 137 H EKG Reviewed by me: Yes (Tele SR) Hospitalist ROS - Review of Systems Cardiovascular: denies: chest pain, palpitations, orthopnea, paroxysmal noc. dyspnea, edema, light headedness, other Gastrointestinal: denies: nausea, vomiting, abdominal pain, diarrhea, constipation, melena, hematochezia, other - Medication Medications: Active Medications Generic Name Dose Route Start Last Admin Trade Name Freq PRN Reason Stop Dose Admin Acetaminophen 650 mg 11/23/18 08:18 11/24/18 23:23 Tylenol PO 650 mg Q4H PRN Administration Headache/Fever/Mild Pain (1-3) Atorvastatin Calcium 40 mg 11/23/18 09:00 11/26/18 09:32 Lipitor PO 40 mg DAILY GOMEZ Administration Carvedilol 6.25 mg 11/25/18 17:00 11/26/18 17:27 Coreg PO 6.25 mg BID-WM GOMEZ Administration Cefdinir 300 mg 11/25/18 09:00 11/26/18 09:32 Omnicef PO 300 mg DAILY GOMEZ Administration Clopidogrel Bisulfate 75 mg 11/23/18 09:00 11/26/18 09:32 Plavix PO 75 mg DAILY GOMEZ Administration Famotidine 20 mg 11/25/18 09:00 11/26/18 09:32 Pepcid PO 20 mg DAILY GOMEZ Administration Hydralazine HCl 50 mg 11/23/18 09:00 11/26/18 21:22 Apresoline PO 50 mg TID GOMEZ Administration Insulin Human Lispro 0 units 11/23/18 09:24 11/25/18 11:07 Humalog SC 2 unit .MILD SLIDING SCALE PRN Administration Mild Correctional Scale Insulin Human Lispro 0 units 11/23/18 09:24 11/26/18 21:37 Humalog SC 2 unit .BEDTIME SLIDING SC PRN Administration Bedtime Correctional Scale Isosorbide Dinitrate 20 mg 11/25/18 21:00 11/26/18 21:22 Isordil PO 20 mg BID GOMEZ Administration Minoxidil 5 mg 11/26/18 09:00 11/26/18 09:33 Minoxidil PO 5 mg DAILY GOMEZ Administration Nifedipine 30 mg 11/26/18 12:00 11/26/18 12:24 Procardia Xl PO 30 mg 1200 GOMEZ Administration Oxybutynin Chloride 5 mg 11/23/18 09:00 11/26/18 21:23 Ditropan PO 5 mg BID GOMEZ Administration Polyethylene Glycol 17 gm 11/25/18 12:12 11/25/18 12:28 Miralax PO 17 gm DAILY PRN Administration Constipation Ranolazine 500 mg 11/25/18 21:00 11/26/18 21:21 Ranexa PO 500 mg BID GOMEZ Administration Senna/Docusate Sodium 2 tab 11/25/18 21:00 11/26/18 21:21 Senokot S PO 2 tab BID GOMEZ Administration Sodium Chloride 10 ml 11/23/18 09:00 11/26/18 21:42 Flush - Normal Saline IVF 10 ml Q12HR GOMEZ Administration Sodium Chloride 10 ml 11/22/18 22:29 11/24/18 03:19 Flush - Normal Saline IVF 10 ml PRN PRN Administration Saline Flush - Exam General Appearance: NAD Heart: RRR, no gallops Respiratory: CTAB, no rales Respiratory - other findings: dec AE at bases Gastrointestinal: soft, non-distended Extremities: 2+ LE edema Hosp A/P - Plan DVT proph w/SCDs IMPRESSION: 1. Acute on chronic diastolic heart failure exacerbation. 2. DAVI on CKD 3 due to cardiorenalsyndrome/diuretics. 3. Diabetes mellitus, type 2. 4. Hypertension. 5. Dyslipidemia. 6. Obstructive sleep apnea, not on CPAP. 7. Chronic anemia. 8. Obesity with a BMI of 33.8. 9. Escherichia coli urinary tract infection. 10. Overactive bladder. PLAN: Cont Coreg Diuretics per Nephrology Cont fluid restriction Cont hydralazine, nitrate and minoxidil. Cont Omnicef for UTI BMP in AM
[2018-11-27 06:47] LABS: Anion Gap 13 mmol/L (10-20); BUN (Urea Nitrogen) 50 mg/dL (9.8-20.1); Calc. Creatinine Clearance 25 mL/min (70-130); Calcium 7.9 mg/dL (7.8-10.44); Carbon Dioxide 21 mmol/L (23-31); Chloride 108 mmol/L (98-107); Estimated GFR-MDRD 16; Glucose 162 mg/dL (80-115); Magnesium 2.2 mg/dL (1.6-2.6); Potassium 4.8 mmol/L (3.5-5.1); Sodium 137 mmol/L (136-145)
[2018-11-27] MEDS: Isosorbide Dinitrate 20 MG TAB PO SCH ×2 (08:57→22:56)
[2018-11-27] MEDS: Cefdinir 300 MG CAP PO SCH (08:57)
[2018-11-27] MEDS: Famotidine 20 MG TAB PO SCH (08:57)
[2018-11-27] MEDS: Senokot S 8.6-50 MG TAB PO SCH ×2 (08:58→22:56)
[2018-11-27] MEDS: hydrALAZINE 25 MG TAB PO SCH ×3 (08:59→22:55)
[2018-11-27] MEDS: Carvedilol 6.25 MG TAB PO SCH ×2 (08:59→16:07)
[2018-11-27] MEDS: Minoxidil 2.5 MG TAB PO SCH (09:00)
[2018-11-27] MEDS: Oxybutynin 5 MG TAB PO SCH ×2 (09:00→22:56)
[2018-11-27] MEDS: Atorvastatin Calcium 40 MG TAB PO SCH (09:00)
[2018-11-27] MEDS: Clopidogrel Bisulfate 75 MG TAB PO SCH (09:01)
[2018-11-27] MEDS: HumaLOG 300 UNITS/3 ML VIAL SC PRN (12:00)
[2018-11-27] MEDS: NIFEdipine XL 30 MG TAB PO SCH (12:04)
--- NOTE | 2018-11-27 12:17 | PDOC.HOSPP ---
- Subjective Encounter Date: 11/27/18 Encounter Time: 12:15 Subjective: f/u for acute/chronic diast CHF, DAVI/CKD with worsening renal function likely multifactorial including cardiorenal syndrome, CKD. - Objective Vital Signs & Weight: Vital Signs (12 hours) Temp Pulse Resp BP BP Pulse Ox 11/27/18 12:04 70 149/79 H 11/27/18 08:59 70 149/79 H 11/27/18 07:35 97.8 F 70 18 133/63 95 11/27/18 04:00 98.3 F 70 16 129/60 92 L Weight Admit Weight 171 lb Weight 178 lb 9.6 oz I&O: 11/26/18 11/27/18 11/28/18 06:59 06:59 06:59 Intake Total 240 Output Total 1000 Balance -760 Result Diagrams: 11/25/18 04:56 11/27/18 04:47 Additional Labs: Accuchecks 11/27/18 11/27/18 11/26/18 10:10 06:20 21:12 POC Glucose 215 H 170 H 226 H 11/26/18 16:58 POC Glucose 192 H Microbiology 11/23/18 21:09 Urine clean catch Urine Culture - Final Escherichia coli Laboratory Tests 11/22/18 11/22/18 11/23/18 19:35 19:36 02:15 Hgb 10.1 L Creatinine 1.63 H 1.54 H Magnesium 11/23/18 11/23/18 11/24/18 08:24 18:20 05:13 Hgb 8.6 L 8.3 L Creatinine 1.83 H Magnesium 11/24/18 11/25/18 11/26/18 05:13 04:56 07:35 Hgb 8.1 L Creatinine 2.16 H 2.47 H Magnesium 11/26/18 11/27/18 11:01 04:47 Hgb Creatinine 2.49 H Magnesium 2.2 Radiology Reviewed by me: Yes (Renal sono - mild bilat diffuse cortical atrophy) EKG Reviewed by me: Yes (Tele - SR) Hospitalist ROS - Medication Medications: Active Medications Generic Name Dose Route Start Last Admin Trade Name Freq PRN Reason Stop Dose Admin Acetaminophen 650 mg 11/23/18 08:18 11/24/18 23:23 Tylenol PO 650 mg Q4H PRN Administration Headache/Fever/Mild Pain (1-3) Atorvastatin Calcium 40 mg 11/23/18 09:00 11/27/18 09:00 Lipitor PO 40 mg DAILY GOMEZ Administration Carvedilol 6.25 mg 11/25/18 17:00 11/27/18 08:59 Coreg PO 6.25 mg BID-WM GOMEZ Administration Cefdinir 300 mg 11/25/18 09:00 11/27/18 08:57 Omnicef PO 300 mg DAILY GOMEZ Administration Clopidogrel Bisulfate 75 mg 11/23/18 09:00 11/27/18 09:01 Plavix PO 75 mg DAILY GOMEZ Administration Famotidine 20 mg 11/25/18 09:00 11/27/18 08:57 Pepcid PO 20 mg DAILY GOMEZ Administration Hydralazine HCl 50 mg 11/23/18 09:00 11/27/18 08:59 Apresoline PO 50 mg TID GOMEZ Administration Insulin Human Lispro 0 units 11/23/18 09:24 11/27/18 12:00 Humalog SC 3 unit .MILD SLIDING SCALE PRN Administration Mild Correctional Scale Insulin Human Lispro 0 units 11/23/18 09:24 11/26/18 21:37 Humalog SC 2 unit .BEDTIME SLIDING SC PRN Administration Bedtime Correctional Scale Isosorbide Dinitrate 20 mg 11/25/18 21:00 11/27/18 08:57 Isordil PO 20 mg BID [facility] Administration Minoxidil 5 mg 11/26/18 09:00 11/27/18 09:00 Minoxidil PO 5 mg DAILY [facility] Administration Nifedipine 30 mg 11/26/18 12:00 11/27/18 12:04 Procardia Xl PO 30 mg 1200 [facility] Administration Oxybutynin Chloride 5 mg 11/23/18 09:00 11/27/18 09:00 Ditropan PO Not Given BID [facility] Polyethylene Glycol 17 gm 11/25/18 12:12 11/25/18 12:28 Miralax PO 17 gm DAILY PRN Administration Constipation Ranolazine 500 mg 11/25/18 21:00 11/27/18 08:58 Ranexa PO 500 mg BID [facility] Administration Senna/Docusate Sodium 2 tab 11/25/18 21:00 11/27/18 08:58 Senokot S PO Not Given BID [facility] Sodium Chloride 10 ml 11/23/18 09:00 11/27/18 12:04 Flush - Normal Saline IVF 10 ml Q12HR GOMEZ Administration Sodium Chloride 10 ml 11/22/18 22:29 11/24/18 03:19 Flush - Normal Saline IVF 10 ml PRN PRN Administration Saline Flush - Exam General Appearance: NAD Eye: PERRL, anicteric sclera ENT: normocephalic atraumatic, no oropharyngeal lesions Neck: supple, symmetric, no JVD, no thyromegaly, no lymphadenopathy Heart: RRR, no murmur, no gallops, no rubs, normal peripheral pulses Respiratory: CTAB, no wheezes, no rales, no ronchi, normal chest expansion Gastrointestinal: soft, non-tender, normal bowel sounds, no palpable masses Gastrointestinal - other findings: mild distention Extremities: no cyanosis Extremities - other findings: mild LE edema Skin: normal turgor Neurological: cranial nerve grossly intact, no new deficit Musculoskeletal: normal tone, normal strength Psychiatric: normal affect, A&O x 3 Hosp A/P (1) Acute kidney injury superimposed on chronic kidney disease Code(s): N17.9 - ACUTE KIDNEY FAILURE, UNSPECIFIED; N18.9 - CHRONIC KIDNEY DISEASE, UNSPECIFIED Status: Acute Plan: Secondary to Acute Tubular Necrosis, cardiorenal syndrome, continue renally dosed meds, avoid nephrotoxic meds and limit contrast exposure, serial creatinine (2) UTI (urinary tract infection) Status: Acute Plan: E. coli on Ucx, continue Omnicef (3) Acute on chronic diastolic heart failure Code(s): I50.33 - ACUTE ON CHRONIC DIASTOLIC (CONGESTIVE) HEART FAILURE Status : Acute Plan: Stable, remains on RA, continue supportive mgmt, Coreg, Lasix on hold due to ATN (4) DM2 (diabetes mellitus, type 2) Status: Chronic Qualifiers: Diabetes mellitus parts counterman insulin use: with parts counterman use Plan: ISS, ADA (5) Hypertension Code(s): I10 - ESSENTIAL (PRIMARY) HYPERTENSION Status: Chronic Qualifiers: Hypertension type: essential hypertension Qualified Code(s): I10 - Essential (primary) hypertension Plan: Resume home BP regimen and titrate to optimal response - Plan social science research assistant, out of bed/ambulate, DVT proph w/SCDs Stable currently Avoid nephrotoxic meds and limit contrast exposure Continue Plavix Continue Coreg Continue Omnicef AM lab: BMP
--- NOTE | 2018-11-27 12:37 | PRG ---
DATE OF SERVICE: 11/27/2018 SUBJECTIVE: A 62-year-old female being seen for acute kidney injury. The patient denies any nausea, vomiting, or chest pain. OBJECTIVE: CONSTITUTIONAL: The patient is awake and alert. VITAL SIGNS: Afebrile. Pulse 75, breathing 16, blood pressure 133/63. GENERAL APPEARANCE AND MENTAL STATUS: Fair. HEAD/NECK: Normocephalic. Atraumatic. EYES: EOMI. No deformity. EARS: Clear. No ulcers. NOSE: Intact. No lesions. MOUTH: Clear. No discharge. THROAT: Clear. No exudate. LUNGS: Clear. No crackles. CARDIAC: S1, S2. No rub. ABDOMEN: Benign. Bowel sounds positive. GENITALIA/RECTUM: [place] absent. BACK/EXTREMITIES: Edema 0+. NEUROLOGICAL: Alert and motor intact. SKIN: LYMPHATICS: ASSESSMENT AND RECOMMENDATIONS: 1. Acute kidney injury with chronic kidney disease due to cardiorenal syndrome, worsening. Renal ultrasound shows chronic disease. Other possibility could be cefdinir-induced nephrotoxicity. I would recommend changing antibiotics. 2. Anemia, stable. 3. Medication based on GFR appropriate. 4. Congestive heart failure, stable. Job ID: [id number]
[2018-11-28 05:43] LABS: Anion Gap 12 mmol/L (10-20); BUN (Urea Nitrogen) 55 mg/dL (9.8-20.1); Calc. Creatinine Clearance 21 mL/min (70-130); Calcium 8.1 mg/dL (7.8-10.44); Carbon Dioxide 23 mmol/L (23-31); Chloride 108 mmol/L (98-107); Estimated GFR-MDRD 14; Glucose 158 mg/dL (80-115); Potassium 4.8 mmol/L (3.5-5.1); Sodium 138 mmol/L (136-145)
[2018-11-28] MEDS: Famotidine 20 MG TAB PO SCH (09:13)
[2018-11-28] MEDS: hydrALAZINE 25 MG TAB PO SCH ×3 (09:13→22:00)
[2018-11-28] MEDS: Carvedilol 6.25 MG TAB PO SCH ×2 (09:13→16:40)
[2018-11-28] MEDS: Minoxidil 2.5 MG TAB PO SCH (09:13)
[2018-11-28] MEDS: Cefdinir 300 MG CAP PO SCH (09:13)
[2018-11-28] MEDS: Isosorbide Dinitrate 20 MG TAB PO SCH ×2 (09:14→22:02)
[2018-11-28] MEDS: Oxybutynin 5 MG TAB PO SCH ×2 (09:14→22:01)
[2018-11-28] MEDS: Clopidogrel Bisulfate 75 MG TAB PO SCH (09:14)
[2018-11-28] MEDS: Atorvastatin Calcium 40 MG TAB PO SCH (09:14)
[2018-11-28] MEDS: Senokot S 8.6-50 MG TAB PO SCH ×2 (09:15→22:01)
[2018-11-28] MEDS ORDERED: Sodium Chloride 0.9% 1,000 ML IV SCH (10:15)
--- NOTE | 2018-11-28 11:02 | PRG ---
DATE OF SERVICE: 11/28/2018 SUBJECTIVE: Patient was seen and examined at bedside and overnight events noted. Patient denies any shortness of breath or chest pain or palpitation. No history of nausea or vomiting or diarrhea or fever or chills or cramps. OBJECTIVE: GENERAL: This is a well-built female, in no apparent distress. VITAL SIGNS: Temperature 97.8. Heart rate 71. Respiratory rate 18. Blood pressure 133/73. HEENT: Atraumatic, normocephalic. Oral mucosa is moist NECK: Supple. CARDIOVASCULAR: S1, S2 heard. Rate and rhythm regular. RESPIRATORY: Clear to auscultation. GASTROINTESTINAL: Abdomen is soft. MUSCULOSKELETAL: No tenderness. No edema. DERMATOLOGIC: No skin rash. NEUROLOGIC: Alert and awake and oriented X3. No focal neurologic deficits. Moving all the extremities. PSYCHIATRIC: Mood and affect normal. LABORATORY DATA: Potassium 4.8, BUN is 55, creatinine is 3.4 from 2.9 yesterday. ASSESSMENT AND PLAN: 1. Acute kidney injury. Creatinine continues to get worse. I had a discussion with Dr. Miranda. Plan is to give her 1 L of fluid slowly, so ejection fraction is adequate. Plan is also to hold cefdinir for now since she finished 5 days of antibiotics. We will start on NS at 75 mL per hour. Her medication list reviewed, no new medicines noted. We will check urine eosinophils. 2. Anemia, stable. 3. Hypertension, stable. 4. Edema, controlled. 5. History of congestive heart failure and diastolic dysfunction. Start IV fluids. Monitor cardiorespiratory status closely, and we will stop cefdinir. Plan discussed with Dr. Miranda. Job ID: [id number]
[2018-11-28] MEDS: Sodium Chloride 0.45% 1,000 ML IV SCH ×2 (11:37→22:00)
[2018-11-28] MEDS: NIFEdipine XL 30 MG TAB PO SCH (11:37)
--- NOTE | 2018-11-28 17:27 | PDOC.HOSPP ---
- Subjective Encounter Date: 11/28/18 Encounter Time: 17:20 Subjective: f/u for DAVI/CKD III on low-volume IVF's. No new complaints currently. - Objective Vital Signs & Weight: Vital Signs (12 hours) Temp Pulse Pulse Pulse Resp BP BP 11/28/18 16:40 71 133/73 11/28/18 11:37 71 133/73 11/28/18 10:37 89 85 148/65 H 11/28/18 09:13 71 133/73 11/28/18 07:40 97.8 F 71 18 11/28/18 07:30 BP BP Pulse Ox Pulse Ox Pulse Ox 11/28/18 16:40 11/28/18 11:37 11/28/18 10:37 145/66 H 92 L 95 11/28/18 09:13 11/28/18 07:40 153/67 H 95 11/28/18 07:30 95 Weight Admit Weight 171 lb Weight 177 lb 8 oz I&O: 11/27/18 11/28/18 11/29/18 06:59 06:59 06:59 Intake Total 240 1180 Output Total 1000 Balance -760 1180 Result Diagrams: 11/25/18 04:56 11/28/18 04:31 Additional Labs: Accuchecks 11/28/18 11/28/18 11/27/18 11:34 05:05 19:47 POC Glucose 198 H 159 H 169 H Microbiology 11/23/18 21:09 Urine clean catch Urine Culture - Final Escherichia coli Laboratory Tests 11/22/18 11/22/18 11/23/18 19:35 19:36 02:15 Hgb 10.1 L Creatinine 1.63 H 1.54 H Magnesium 11/23/18 11/23/18 11/24/18 08:24 18:20 05:13 Hgb 8.6 L 8.3 L Creatinine 1.83 H Magnesium 11/24/18 11/25/18 11/26/18 05:13 04:56 07:35 Hgb 8.1 L Creatinine 2.16 H 2.47 H Magnesium 11/26/18 11/27/18 11:01 04:47 Hgb Creatinine 2.49 H Magnesium 2.2 EKG Reviewed by me: Yes (Tele - SR) Hospitalist ROS - Medication Medications: Active Medications Generic Name Dose Route Start Last Admin Trade Name Freq PRN Reason Stop Dose Admin Acetaminophen 650 mg 11/23/18 08:18 11/24/18 23:23 Tylenol PO 650 mg Q4H PRN Administration Headache/Fever/Mild Pain (1-3) Atorvastatin Calcium 40 mg 11/23/18 09:00 11/28/18 09:14 Lipitor PO 40 mg DAILY GOMEZ Administration Carvedilol 6.25 mg 11/25/18 17:00 11/28/18 16:40 Coreg PO 6.25 mg BID-WM GOMEZ Administration Clopidogrel Bisulfate 75 mg 11/23/18 09:00 11/28/18 09:14 Plavix PO 75 mg DAILY GOMEZ Administration Famotidine 20 mg 11/25/18 09:00 11/28/18 09:13 Pepcid PO 20 mg DAILY GOMEZ Administration Hydralazine HCl 50 mg 11/23/18 09:00 11/28/18 16:40 Apresoline PO 50 mg TID GOMEZ Administration Sodium Chloride 1,000 mls @ 100 mls/hr 11/28/18 11:00 11/28/18 11:37 1/2 Normal Saline IV 1,000 mls .Q10H GOMEZ Administration Insulin Human Lispro 0 units 11/23/18 09:24 11/27/18 12:00 Humalog SC 3 unit .MILD SLIDING SCALE PRN Administration Mild Correctional Scale Insulin Human Lispro 0 units 11/23/18 09:24 11/26/18 21:37 Humalog SC 2 unit .BEDTIME SLIDING SC PRN Administration Bedtime Correctional Scale Isosorbide Dinitrate 20 mg 11/25/18 21:00 11/28/18 09:14 Isordil PO 20 mg BID [facility] Administration Minoxidil 5 mg 11/26/18 09:00 11/28/18 09:13 Minoxidil PO 5 mg DAILY [facility] Administration Nifedipine 30 mg 11/26/18 12:00 11/28/18 11:37 Procardia Xl PO 30 mg 1200 [facility]OME[facility] Administration Oxybutynin Chloride 5 mg 11/23/18 09:00 11/28/18 09:14 Ditropan PO Not Given BID [facility] Polyethylene Glycol 17 gm 11/25/18 12:12 11/25/18 12:28 Miralax PO 17 gm DAILY PRN Administration Constipation Ranolazine 500 mg 11/25/18 21:00 11/28/18 09:14 Ranexa PO 500 mg BID [facility] Administration Senna/Docusate Sodium 2 tab 11/25/18 21:00 11/28/18 09:15 Senokot S PO Not Given BID [facility] Sodium Chloride 10 ml 11/23/18 09:00 11/28/18 09:15 Flush - Normal Saline IVF 10 ml Q12HR [facility]OME[facility] Administration Sodium Chloride 10 ml 11/22/18 22:29 11/24/18 03:19 Flush - Normal Saline IVF 10 ml PRN PRN Administration Saline Flush - Exam General Appearance: NAD Eye: PERRL, anicteric sclera ENT: normocephalic atraumatic, no oropharyngeal lesions Neck: supple, symmetric, no JVD, no thyromegaly, no lymphadenopathy Heart: RRR, no murmur, no gallops, no rubs, normal peripheral pulses Respiratory: CTAB, no wheezes, no rales, no ronchi, normal chest expansion Gastrointestinal: soft, non-tender, non-distended, normal bowel sounds Extremities: no cyanosis, no clubbing, no edema Skin: normal turgor, no lesions Neurological: cranial nerve grossly intact, no new deficit Musculoskeletal: normal tone, normal strength Psychiatric: normal affect, A&O x 3 Hosp A/P (1) Acute kidney injury superimposed on chronic kidney disease Code(s): N17.9 - ACUTE KIDNEY FAILURE, UNSPECIFIED; N18.9 - CHRONIC KIDNEY DISEASE, UNSPECIFIED Status: Acute Plan: Persistent, low-volume IVF's, avoid nephrotoxic meds and limit contrast exposure , serial creatinine (2) UTI (urinary tract infection) Status: Acute Plan: D/c Omnicef (3) Acute on chronic diastolic heart failure Code(s): I50.33 - ACUTE ON CHRONIC DIASTOLIC (CONGESTIVE) HEART FAILURE Status : Acute Plan: Compensated, continue supportive mgmt (4) DM2 (diabetes mellitus, type 2) Status: Chronic Qualifiers: Diabetes mellitus senior care insulin use: with senior care use Plan: ISS, ADA (5) Hypertension Code(s): I10 - ESSENTIAL (PRIMARY) HYPERTENSION Status: Chronic Qualifiers: Hypertension type: essential hypertension Qualified Code(s): I10 - Essential (primary) hypertension Plan: Continue current BP regimen, serial monitoring - Plan social director, out of bed/ambulate, DVT proph w/SCDs Stable currently Avoid nephrotoxic meds and limit contrast exposure IVF's NS @ 75ml/h Continue Plavix Continue Coreg d/c Omnicef AM lab: BMP
[2018-11-28] MEDS: HumaLOG 300 UNITS/3 ML VIAL SC PRN (19:35)
[2018-11-29 05:52] LABS: Anion Gap 15 mmol/L (10-20); BUN (Urea Nitrogen) 50 mg/dL (9.8-20.1); Calc. Creatinine Clearance 26 mL/min (70-130); Carbon Dioxide 18 mmol/L (23-31); Chloride 109 mmol/L (98-107); Estimated GFR-MDRD 18; Glucose 106 mg/dL (80-115); Potassium 5.3 mmol/L (3.5-5.1); Sodium 137 mmol/L (136-145)
[2018-11-29] MEDS: Sodium Chloride 0.45% 1,000 ML IV SCH (06:19)
[2018-11-29] MEDS: hydrALAZINE 25 MG TAB PO SCH ×2 (08:08→16:26)
[2018-11-29] MEDS: Famotidine 20 MG TAB PO SCH (08:08)
[2018-11-29] MEDS: Carvedilol 6.25 MG TAB PO SCH ×2 (08:08→16:26)
[2018-11-29] MEDS: Clopidogrel Bisulfate 75 MG TAB PO SCH (08:08)
[2018-11-29] MEDS: Minoxidil 2.5 MG TAB PO SCH (08:09)
[2018-11-29] MEDS: Atorvastatin Calcium 40 MG TAB PO SCH (08:09)
[2018-11-29] MEDS: Isosorbide Dinitrate 20 MG TAB PO SCH (08:09)
[2018-11-29] MEDS: Senokot S 8.6-50 MG TAB PO SCH (08:10)
[2018-11-29] MEDS: Oxybutynin 5 MG TAB PO SCH (08:10)
[2018-11-29] MEDS ORDERED: Sodium Chloride 0.45% 1,000 ML IV SCH (08:33)
--- NOTE | 2018-11-29 10:37 | PRG ---
DATE OF SERVICE: 11/29/2018 SUBJECTIVE: Patient was seen and examined at bedside and overnight events noted. Patient denies any shortness of breath or chest pain or palpitation. No history of nausea or vomiting or diarrhea or fever or chills or cramps. OBJECTIVE: GENERAL: This is a well-built female, in no apparent distress. VITAL SIGNS: Temperature 98.4. Heart rate 79. Respiratory rate 18. Blood pressure 133/73. HEENT: Atraumatic, normocephalic. Oral mucosa is moist NECK: Supple. CARDIOVASCULAR: S1, S2 heard. Rate and rhythm regular. RESPIRATORY: Clear to auscultation. GASTROINTESTINAL: Abdomen is soft. MUSCULOSKELETAL: No tenderness. No edema. DERMATOLOGIC: No skin rash. NEUROLOGIC: Alert and awake and oriented X3. No focal neurologic deficits. Moving all the extremities. PSYCHIATRIC: Mood and affect normal. LABORATORY DATA: Creatinine 2.7 and potassium 5.3, but hemolyzed. Hemoglobin is 8.4. ASSESSMENT AND PLAN: 1. Acute kidney injury. Creatinine is better to 2.7 after hydration cephalosporin. The patient's IV is out and I encouraged her to have oral intake. Okay to discharge her and follow up with Dr. Mae in 1 week. Check BMP before the visit. 2. Anemia, stable. Need close followup as outpatient. 3. Hypertension, stable, but with fluctuation in blood pressure. 4. Edema, controlled. 5. History of congestive heart failure. Creatinine is better. Avoid nephrotoxins. Job ID: [id number]
[2018-11-29] MEDS: NIFEdipine XL 30 MG TAB PO SCH (13:34)
[2018-11-29 16:26] VITALS: BP 133/73; TEMP 97.8
--- NOTE | 2018-11-29 19:13 | DIS ---
DATE OF ADMISSION: 11/22/2018 DATE OF DISCHARGE: 11/29/2018 DISCHARGE DIAGNOSES: 1. Acute kidney injury on chronic kidney disease stage 4. 2. Urinary tract infection with Escherichia coli, completed therapy. 3. Acute on chronic diastolic congestive heart failure with ejection fraction of 60% to 65%. 4. Diabetes mellitus type 2, stable. 5. Hypertension, stable. CONSULTATIONS: 1. Dr. Noel and Dr. Mae with Nephrology Service. 2. Dr. Zhang with Cardiology Service. PERTINENT LABORATORY AND X-RAY FINDINGS: Potassium ranged between 4.6 to 5.3. Creatinine ranged between 1.54 to 3.41. Estimated GFR ranged between 14 to 34. Magnesium level 2.3. BNP 2339, previously noted 1735 on 10/07/2018. CBC showed a hemoglobin ranging between 8.1 to 10.1. Urine culture dated 11/23/2018, showed 75,000 to [id number] colonies of E coli species. Left lower extremity venous Doppler study dated 11/22/2018, showed edema without evidence of DVT. Portable chest x-ray dated 11/23/2018, showed right-sided effusion. Renal ultrasound dated 11/26/2018, showed no evidence of urinary tract obstruction. Mild diffuse bilateral cortical atrophy. HOSPITAL COURSE: The patient was initially admitted after presenting with increased shortness of breath and volume overload in the context of known diastolic congestive heart failure. The patient was noted with elevated BNP over 2000 as well as chest imaging confirming pleural effusions and pulmonary edema. The patient was given IV Lasix and monitored for clinical response. The patient was also on held on her TRUDI inhibitor due to worsening renal function and evaluated by the Cardiology Service. Recommendations were to continue diuretic therapy, which the patient received during the hospital course. Serial creatinine monitoring during the hospital course showed overall worsening renal function, likely iatrogenic in conjunction with acute tubular necrosis. The patient was discontinued on nephrotoxic agents and held on diuretic therapy. The patient was evaluated by the Nephrology Service, however, was not deemed appropriate candidate for consideration of hemodialysis. The patient did receive low volume IV fluids after the acute tubular necrosis was noted. Renal function had improved with volume resuscitation and avoidance of nephrotoxic agents. Overall, the patient did remain clinically stable during the hospital course with stable vital signs at the time of discharge. Telemetry monitoring showed sinus mechanism without evidence of acute arrhythmia or dysrhythmia. I have examined the patient at the time of discharge and discussed followup instructions. The patient verbalized understanding and in agreement, ready for discharge on 11/29/2018. DISCHARGE MEDICATIONS: 1. Lipitor 40 mg p.o. daily. 2. Minoxidil 2.5 mg p.o. daily. 3. Coreg 6.25 mg p.o. b.i.d. 4. Plavix 75 mg p.o. daily. 5. Hydralazine 50 mg p.o. t.i.d. 6. Isosorbide dinitrate 10 mg p.o. b.i.d. 7. Procardia XL 30 mg p.o. daily. 8. Oxybutynin 5 mg p.o. b.i.d. 9. Ranexa 500 mg p.o. b.i.d. FOLLOWUP: 1. The patient may follow up with her primary care provider, Dr. Dyan Ordonez on 11/30/2018, at 4:30 pm. 2. The patient may follow up with Dr. Todd Mae with Nephrology Service in the next 5-7 days. 3. The patient may follow up with Dr. Kristin Zhang with Cardiology Service and to call her office for appointment time and date. 4. The patient will follow up with the [facility]. ACTIVITIES: Ad nathan. DIET: Renal. CODE STATUS: Do not attempt resuscitation. DISPOSITION: Home on 11/29/2018. TIME SPENT: Total time preparing and coordinating discharge, 33 minutes. Job ID: [id number]
== END 2018-11-29 18:05 | disposition home or self-care (01) | DRG 291 ==
LOC: ERS 18:22 → 2SW 22:22 → OBSVTOIN 22:22 → 2NO 11-25 20:24
PROVIDERS: ADMIT Hospitalist; ATTEND Hospitalist
DX: I13.0 Hypertensive heart and chronic kidney disease with heart failure and stage 1 through stage 4 chronic kidney disease, or unspecified chronic kidney disease (principal); I50.33 Acute on chronic diastolic (congestive) heart failure; N17.0 Acute kidney failure with tubular necrosis; N39.0 Urinary tract infection, site not specified; Z66 Do not resuscitate; Z51.5 Encounter for palliative care; E78.5 Hyperlipidemia, unspecified; E78.00 Pure hypercholesterolemia, unspecified; Z60.2 Problems related to living alone; N18.3 Chronic kidney disease, stage 3 (moderate); E11.22 Type 2 diabetes mellitus with diabetic chronic kidney disease; G47.33 Obstructive sleep apnea (adult) (pediatric); D63.1 Anemia in chronic kidney disease; E66.9 Obesity, unspecified; B96.20 Unspecified Escherichia coli [E. coli] as the cause of diseases classified elsewhere; E87.5 Hyperkalemia; N32.81 Overactive bladder; I08.1 Rheumatic disorders of both mitral and tricuspid valves; I42.8 Other cardiomyopathies; Z88.8 Allergy status to other drugs, medicaments and biological substances; Z79.899 Other long term (current) drug therapy; Z68.33 Body mass index [BMI] 33.0-33.9, adult; Z90.49 Acquired absence of other specified parts of digestive tract; Z79.82 Long term (current) use of aspirin; Z86.73 Personal history of transient ischemic attack (TIA), and cerebral infarction without residual deficits; Z79.02 Long term (current) use of antithrombotics/antiplatelets
CPT/HCPCS: 36415; 36416; 71046; 76770; 80048; 80053; 81001; 83605; 83735; 83880; 84145; 84484; 85014; 85018; 85025; 85049; 85379; 87077; 87086; 87186; 89190; 93306; 93798; 96374; J1940; S0028

== ENCOUNTER 2020-08-08 08:57 | Outpatient (CLI) | payer MEDICARE, MEDICAID | END 2020-08-08 08:58 | disposition home or self-care (01) | LOC: BICMAMMO 08:57 | PROVIDERS: ATTEND Family Medicine | DX: Z12.31 Encounter for screening mammogram for malignant neoplasm of breast (principal); Z13.820 Encounter for screening for osteoporosis; M81.0 Age-related osteoporosis without current pathological fracture; M85.851 Other specified disorders of bone density and structure, right thigh; M85.852 Other specified disorders of bone density and structure, left thigh | CPT/HCPCS: 77063; 77067; 77080 ==

== ENCOUNTER 2021-01-02 13:19 | Emergency (ER) | payer MEDICARE, MEDICAID ==
[2021-01-02 16:10] LABS: #Lymphocytes 0.6 thou/uL (1.20-3.40); #Monocytes 0.2 thou/uL (0.11-0.59); #Neutrophils 6.4 thou/uL (1.40-6.50); %Basophils 0.1 % (0.0-1.0); %Eosinophils 0.2 % (0.0-10.0); %Lymphocytes 8.6 % (21.0-51.0); %Monocytes 2.9 % (0.0-10.0); %Neutrophils 88.2 % (42.0-75.0); Hemoglobin 10.7 g/dL (12.0-16.0); Mean Corpuscular HGB CONC 33.8 g/dL (32.0-36.0); Mean Corpuscular Hemoglobin 30.3 pg (27.0-31.0); Mean Corpuscular Volume 89.5 fL (78.0-98.0); Mean Platelet Volume 7.4 fL (7.4-10.4); Platelet Count 274 thou/uL (130-400); RBC Distribution Width 14.6 % (11.5-14.5); Red Blood Cell (RBC) Count 3.55 mill/uL (4.20-5.40); White Blood Cell (WBC) Count 7.3 thou/uL (4.8-10.8)
[2021-01-02 16:30] LABS: ALT (SGPT) 11 U/L (8-55); AST (SGOT) 15 U/L (5-34); Albumin 3.6 g/dL (3.4-4.8); Alkaline Phosphatase 80 U/L (40-110); Anion Gap 10 mmol/L (10-20); BUN (Urea Nitrogen) 24 mg/dL (9.8-20.1); Bilirubin, Total 0.4 mg/dL (0.2-1.2); Calc. Creatinine Clearance 0 mL/min (70-130); Calcium 8.8 mg/dL (7.8-10.44); Carbon Dioxide 24 mmol/L (23-31); Chloride 108 mmol/L (98-107); Globulin 3.8 g/dL (2.4-3.5); Glucose 153 mg/dL (80-115); Magnesium 1.9 mg/dL (1.6-2.6); Potassium 4.3 mmol/L (3.5-5.1); Protein, Total 7.4 g/dL (5.8-8.1); Sodium 138 mmol/L (136-145)
== END 2021-01-02 17:16 | disposition home or self-care (01) ==
LOC: ERS 13:19
DX: E11.649 Type 2 diabetes mellitus with hypoglycemia without coma (principal); I10 Essential (primary) hypertension; E78.5 Hyperlipidemia, unspecified
CPT/HCPCS: 36415; 36416; 80053; 83735; 85025; 93005

== ENCOUNTER 2021-02-12 19:00 | Outpatient (CLI) | payer MEDICARE, MEDICAID | END 2021-02-12 19:01 | disposition home or self-care (01) | LOC: SLEEPLAB 19:00 | PROVIDERS: ATTEND Family Medicine | DX: G47.33 Obstructive sleep apnea (adult) (pediatric) (principal); R06.89 Other abnormalities of breathing; R53.83 Other fatigue; R51.9 Headache, unspecified; I11.0 Hypertensive heart disease with heart failure; I50.9 Heart failure, unspecified; E11.9 Type 2 diabetes mellitus without complications; I63.9 Cerebral infarction, unspecified; G47.00 Insomnia, unspecified; R09.02 Hypoxemia; E66.9 Obesity, unspecified; Z68.32 Body mass index [BMI] 32.0-32.9, adult | CPT/HCPCS: 95811 ==

== ENCOUNTER 2021-02-19 13:12 | Inpatient (IN) | payer MEDICARE, MEDICAID ==
[2021-02-19 14:23] LABS: #Eosinphils 0.1 thou/uL (0.0-0.7); #Lymphocytes 0.8 thou/uL (1.20-3.40); #Monocytes 0.4 thou/uL (0.11-0.59); #Neutrophils 4.3 thou/uL (1.40-6.50); %Basophils 0.3 % (0.0-1.0); %Lymphocytes 14.9 % (21.0-51.0); %Neutrophils 76.8 % (42.0-75.0); Hemoglobin 10.1 g/dL (12.0-16.0); Mean Corpuscular HGB CONC 33.4 g/dL (32.0-36.0); Mean Corpuscular Hemoglobin 30.4 pg (27.0-31.0); Mean Platelet Volume 7.6 fL (7.4-10.4); Platelet Count 249 thou/uL (130-400); RBC Distribution Width 15.7 % (11.5-14.5); Red Blood Cell (RBC) Count 3.33 mill/uL (4.20-5.40); White Blood Cell (WBC) Count 5.7 thou/uL (4.8-10.8)
[2021-02-19 14:38] LABS: Bacteria/HPF 4+ HPF (None Seen); Bilirubin Negative (Negative); Blood, Urine Negative (Negative); Clarity Turbid (Clear); Glucose, Urine (Dipstick) >=1000 mg/dL (Negative); Ketone, Urine Negative (Negative); Leukocyte 250 Leu/uL (Negative); Nitrite Negative (Negative); Protein, Urine (Dipstick) 100 mg/dL (Neg-Trace); RBC/HPF 0-3 HPF (0-3); Specific Gravity, Urine 1.011 (1.002-1.036); Squamous Epithelial 0-3 HPF (0-3); Urobilinogen Normal mg/dL (Less than 2); WBC/HPF Greater than 50 HPF (0-3); pH, Urine 5.5 (5.0-9.0)
[2021-02-19 14:43] LABS: ALT (SGPT) 12 U/L (8-55); AST (SGOT) 16 U/L (5-34); Albumin 3.9 g/dL (3.4-4.8); Alkaline Phosphatase 75 U/L (40-110); Anion Gap 16 mmol/L (10-20); BUN (Urea Nitrogen) 52 mg/dL (9.8-20.1); Bilirubin, Total 0.5 mg/dL (0.2-1.2); Calc. Creatinine Clearance 0 mL/min (70-130); Calcium 8.3 mg/dL (7.8-10.44); Carbon Dioxide 23 mmol/L (23-31); Chloride 102 mmol/L (98-107); Globulin 3.7 g/dL (2.4-3.5); Glucose 155 mg/dL (80-115); Potassium 4.6 mmol/L (3.5-5.1); Protein, Total 7.6 g/dL (5.8-8.1); Sodium 136 mmol/L (136-145)
[2021-02-19] MEDS ORDERED: cefTRIAXone\\ROCEPHIN 2 GM VIAL ONE (17:30)
[2021-02-19] MEDS ORDERED: Sodium Chloride 0.9% 1,000 ML IV SCH (18:15)
[2021-02-19] MEDS ORDERED: Acetaminophen 650 MG Suppository PR PRN (22:40)
[2021-02-19] MEDS ORDERED: Dextrose 50% Abboject 50 ML SYRINGE SLOW IVP PRN (22:40)
[2021-02-19] MEDS ORDERED: Ondansetron ODT 4 MG TAB PO PRN (22:40)
[2021-02-19] MEDS ORDERED: HumaLOG 300 UNITS/3 ML VIAL SC PRN ×2 (22:40)
[2021-02-19] MEDS ORDERED: Ondansetron PF 4 MG/2 ML Vial IVP PRN (22:40)
[2021-02-19] MEDS ORDERED: Dextrose 5% in Water 1,000 ML IV PRN (22:40)
[2021-02-19] MEDS ORDERED: Furosemide 40 MG/4 ML VIAL SLOW IVP SCH (23:45)
[2021-02-20] MEDS: Acetaminophen 325 MG TAB PO PRN (00:02)
[2021-02-20 04:50] LABS: #Eosinphils 0.1 thou/uL (0.0-0.7); #Monocytes 0.4 thou/uL (0.11-0.59); #Neutrophils 3.1 thou/uL (1.40-6.50); %Basophils 0.6 % (0.0-1.0); %Eosinophils 2.7 % (0.0-10.0); %Lymphocytes 22.3 % (21.0-51.0); %Monocytes 8.3 % (0.0-10.0); %Neutrophils 66.2 % (42.0-75.0); Hemoglobin 9.5 g/dL (12.0-16.0); Mean Corpuscular HGB CONC 33.3 g/dL (32.0-36.0); Mean Corpuscular Hemoglobin 30.5 pg (27.0-31.0); Mean Corpuscular Volume 91.5 fL (78.0-98.0); Mean Platelet Volume 7.6 fL (7.4-10.4); Platelet Count 221 thou/uL (130-400); RBC Distribution Width 15.6 % (11.5-14.5); Red Blood Cell (RBC) Count 3.12 mill/uL (4.20-5.40); White Blood Cell (WBC) Count 4.7 thou/uL (4.8-10.8)
[2021-02-20 05:13] LABS: Anion Gap 15 mmol/L (10-20); BUN (Urea Nitrogen) 50 mg/dL (9.8-20.1); Calc. Creatinine Clearance 20 mL/min (70-130); Carbon Dioxide 21 mmol/L (23-31); Chloride 106 mmol/L (98-107); Glucose 142 mg/dL (80-115); Potassium 4.3 mmol/L (3.5-5.1); Sodium 138 mmol/L (136-145)
[2021-02-20] MEDS: Heparin 5,000 UNITS/ML VIAL SC SCH ×3 (08:21→20:56)
[2021-02-20] MEDS: hydrALAZINE 25 MG TAB PO SCH ×2 (08:32→20:55)
[2021-02-20] MEDS: Carvedilol 25 MG TAB PO SCH ×2 (08:32→17:07)
[2021-02-20] MEDS: Minoxidil 2.5 MG TAB PO SCH ×2 (08:32→20:56)
[2021-02-20] MEDS: Sodium Bicarbonate Tab 325 MG TAB PO SCH ×3 (08:33→20:55)
[2021-02-20] MEDS: Clopidogrel Bisulfate 75 MG TAB PO SCH (08:33)
[2021-02-20 14:42] LABS: SARS-CoV-2 PCR by NAA Not Detected (NotDetected)
[2021-02-20] MEDS ORDERED: cefTRIAXone\\ROCEPHIN 1 GM in Sodium Chloride 0.9% 100 ML IVPB SCH (15:00)
[2021-02-20] MEDS: cefTRIAXone\\ROCEPHIN 1 GM in Sodium Chloride 0.9% 100 ML IVPB SCH (17:07)
[2021-02-20] MEDS: Amlodipine 10 MG TAB PO SCH (20:55)
[2021-02-20] MEDS: Docusate 100 MG CAP PO SCH (20:55)
[2021-02-20] MEDS: Atorvastatin Calcium 40 MG TAB PO SCH (20:56)
[2021-02-21 04:39] LABS: #Eosinphils 0.1 thou/uL (0.0-0.7); #Lymphocytes 0.9 thou/uL (1.20-3.40); #Monocytes 0.4 thou/uL (0.11-0.59); #Neutrophils 3.2 thou/uL (1.40-6.50); %Basophils 0.4 % (0.0-1.0); %Eosinophils 2.9 % (0.0-10.0); %Lymphocytes 19.7 % (21.0-51.0); %Neutrophils 68.1 % (42.0-75.0); Hemoglobin 9.6 g/dL (12.0-16.0); Mean Corpuscular HGB CONC 33.1 g/dL (32.0-36.0); Mean Corpuscular Hemoglobin 30.3 pg (27.0-31.0); Mean Corpuscular Volume 91.5 fL (78.0-98.0); Mean Platelet Volume 7.6 fL (7.4-10.4); Platelet Count 241 thou/uL (130-400); RBC Distribution Width 15.3 % (11.5-14.5); Red Blood Cell (RBC) Count 3.16 mill/uL (4.20-5.40); White Blood Cell (WBC) Count 4.7 thou/uL (4.8-10.8)
[2021-02-21 04:55] LABS: Anion Gap 16 mmol/L (10-20); BUN (Urea Nitrogen) 50 mg/dL (9.8-20.1); Calc. Creatinine Clearance 22 mL/min (70-130); Calcium 8.3 mg/dL (7.8-10.44); Carbon Dioxide 20 mmol/L (23-31); Chloride 107 mmol/L (98-107); Glucose 137 mg/dL (80-115); Magnesium 2.2 mg/dL (1.6-2.6); Sodium 138 mmol/L (136-145)
[2021-02-21] MEDS: Clopidogrel Bisulfate 75 MG TAB PO SCH ×2 (07:58→07:59)
[2021-02-21] MEDS: Saccharomyces boulardii 250 MG CAP PO SCH (07:58)
[2021-02-21] MEDS: Minoxidil 2.5 MG TAB PO SCH ×2 (08:00→20:45)
[2021-02-21] MEDS: Sodium Bicarbonate Tab 325 MG TAB PO SCH ×3 (08:00→20:46)
[2021-02-21] MEDS: hydrALAZINE 25 MG TAB PO SCH ×2 (08:00→20:45)
[2021-02-21] MEDS: Docusate 100 MG CAP PO SCH ×2 (08:00→20:45)
[2021-02-21] MEDS: Carvedilol 25 MG TAB PO SCH ×2 (08:01→19:50)
[2021-02-21] MEDS: Heparin 5,000 UNITS/ML VIAL SC SCH ×3 (08:02→20:46)
[2021-02-21] MEDS ORDERED: hydrALAZINE 20 MG/ML VIAL SLOW IVP PRN (12:08)
[2021-02-21] MEDS: cefTRIAXone\\ROCEPHIN 1 GM in Sodium Chloride 0.9% 100 ML IVPB SCH (19:50)
[2021-02-21] MEDS: Atorvastatin Calcium 40 MG TAB PO SCH (20:45)
[2021-02-21] MEDS: Amlodipine 10 MG TAB PO SCH (20:45)
[2021-02-21] MEDS: Acetaminophen 325 MG TAB PO PRN (22:28)
[2021-02-22] MEDS ORDERED: hydrALAZINE 25 MG TAB PO SCH ×2 (09:00→21:00)
[2021-02-22] MEDS: Docusate 100 MG CAP PO SCH (10:49)
[2021-02-22] MEDS: Heparin 5,000 UNITS/ML VIAL SC SCH ×2 (10:50→14:54)
[2021-02-22] MEDS: Minoxidil 2.5 MG TAB PO SCH (10:50)
[2021-02-22] MEDS: Clopidogrel Bisulfate 75 MG TAB PO SCH (10:50)
[2021-02-22] MEDS: Saccharomyces boulardii 250 MG CAP PO SCH (10:50)
[2021-02-22] MEDS: Sodium Bicarbonate Tab 325 MG TAB PO SCH ×2 (10:53→14:54)
[2021-02-22] MEDS: Carvedilol 25 MG TAB PO SCH ×3 (10:54→16:19)
[2021-02-22 12:57] VITALS: BP 138/64; TEMP 98.1
[2021-02-22 13:56] LABS: Anion Gap 15 mmol/L (10-20); BUN (Urea Nitrogen) 53 mg/dL (9.8-20.1); Calc. Creatinine Clearance 23 mL/min (70-130); Calcium 7.9 mg/dL (7.8-10.44); Carbon Dioxide 21 mmol/L (23-31); Chloride 108 mmol/L (98-107); Glucose 161 mg/dL (80-115); Potassium 4.8 mmol/L (3.5-5.1); Sodium 139 mmol/L (136-145)
[2021-02-22] MEDS: cefTRIAXone\\ROCEPHIN 1 GM in Sodium Chloride 0.9% 100 ML IVPB SCH (16:19)
== END 2021-02-22 18:41 | disposition home or self-care (01) | DRG 682 ==
LOC: ERS 13:12 → MSONC 18:05
PROVIDERS: ADMIT Internal Medicine; ATTEND Internal Medicine
DX: N17.9 Acute kidney failure, unspecified (principal); I50.33 Acute on chronic diastolic (congestive) heart failure; I13.0 Hypertensive heart and chronic kidney disease with heart failure and stage 1 through stage 4 chronic kidney disease, or unspecified chronic kidney disease; N39.0 Urinary tract infection, site not specified; E11.22 Type 2 diabetes mellitus with diabetic chronic kidney disease; E78.00 Pure hypercholesterolemia, unspecified; N18.4 Chronic kidney disease, stage 4 (severe); G47.33 Obstructive sleep apnea (adult) (pediatric); D63.1 Anemia in chronic kidney disease; I08.1 Rheumatic disorders of both mitral and tricuspid valves; B96.20 Unspecified Escherichia coli [E. coli] as the cause of diseases classified elsewhere; I25.10 Atherosclerotic heart disease of native coronary artery without angina pectoris; Z20.822 Contact with and (suspected) exposure to COVID-19; Z86.73 Personal history of transient ischemic attack (TIA), and cerebral infarction without residual deficits; Z90.49 Acquired absence of other specified parts of digestive tract; Z88.8 Allergy status to other drugs, medicaments and biological substances; Z79.899 Other long term (current) drug therapy; Z87.891 Personal history of nicotine dependence
CPT/HCPCS: 36415; 36416; 71046; 80048; 80053; 81003; 81015; 83735; 83880; 84484; 85025; 87077; 87086; 87186; 93005; 93306; 93798; 97139; J0696; J1644; J1940; J3490; J7050; U0003; U0005

== ENCOUNTER 2021-03-18 17:20 | Inpatient (IN) | payer MEDICARE, MEDICAID ==
[2021-03-18 18:03] LABS: #Lymphocytes 0.6 thou/uL (1.20-3.40); #Monocytes 0.2 thou/uL (0.11-0.59); #Neutrophils 3.3 thou/uL (1.40-6.50); %Eosinophils 0.5 % (0.0-10.0); %Lymphocytes 14.6 % (21.0-51.0); %Monocytes 5.2 % (0.0-10.0); %Neutrophils 79.6 % (42.0-75.0); Hemoglobin 8.8 g/dL (12.0-16.0); Mean Corpuscular HGB CONC 32.3 g/dL (32.0-36.0); Mean Corpuscular Volume 89.7 fL (78.0-98.0); Mean Platelet Volume 8.7 fL (7.4-10.4); Platelet Count 221 thou/uL (130-400); RBC Distribution Width 14.6 % (11.5-14.5); Red Blood Cell (RBC) Count 3.02 mill/uL (4.20-5.40); White Blood Cell (WBC) Count 4.1 thou/uL (4.8-10.8)
[2021-03-18 18:31] LABS: ALT (SGPT) 9 U/L (8-55); AST (SGOT) 18 U/L (5-34); Albumin 3.4 g/dL (3.4-4.8); Alkaline Phosphatase 58 U/L (40-110); Anion Gap 20 mmol/L (10-20); BUN (Urea Nitrogen) 84 mg/dL (9.8-20.1); Bilirubin, Total 0.8 mg/dL (0.2-1.2); Calc. Creatinine Clearance 0 mL/min (70-130); Calcium 6.9 mg/dL (7.8-10.44); Carbon Dioxide 20 mmol/L (23-31); Chloride 104 mmol/L (98-107); Globulin 3.3 g/dL (2.4-3.5); Glucose 157 mg/dL (80-115); Potassium 5.2 mmol/L (3.5-5.1); Protein, Total 6.7 g/dL (5.8-8.1); Sodium 139 mmol/L (136-145)
[2021-03-18] MEDS ORDERED: Budesonide 0.5 MG/2 ML NEB ONE (19:49)
[2021-03-18] MEDS ORDERED: Budesonide 0.25 MG/2 ML NEB ONE (19:50)
[2021-03-18] MEDS ORDERED: Bumetanide 1 MG/4 ML VIAL IVP SCH (20:00)
[2021-03-18] MEDS ORDERED: Furosemide 40 MG/4 ML VIAL ONE (20:23)
[2021-03-18 21:33] LABS: Troponin I 0.011 ng/mL (< 0.028)
[2021-03-19 01:23] LABS: Troponin I 0.013 ng/mL (< 0.028)
[2021-03-19 04:57] LABS: #Lymphocytes 0.5 thou/uL (1.20-3.40); #Monocytes 0.3 thou/uL (0.11-0.59); #Neutrophils 2.3 thou/uL (1.40-6.50); %Lymphocytes 16.4 % (21.0-51.0); %Neutrophils 74.6 % (42.0-75.0); Hemoglobin 8.2 g/dL (12.0-16.0); Mean Corpuscular HGB CONC 32.1 g/dL (32.0-36.0); Mean Corpuscular Volume 90.4 fL (78.0-98.0); Platelet Count 139 thou/uL (130-400); RBC Distribution Width 14.7 % (11.5-14.5)
[2021-03-19] MEDS ORDERED: Ondansetron ODT 4 MG TAB PO PRN (05:16)
[2021-03-19] MEDS ORDERED: Acetaminophen 650 MG Suppository PR PRN (05:16)
[2021-03-19] MEDS ORDERED: Ondansetron PF 4 MG/2 ML Vial IVP PRN (05:16)
[2021-03-19] MEDS ORDERED: Acetaminophen 325 MG TAB PO PRN (05:16)
[2021-03-19 05:18] LABS: Anion Gap 17 mmol/L (10-20); BUN (Urea Nitrogen) 84 mg/dL (9.8-20.1); Calc. Creatinine Clearance 14 mL/min (70-130); Calcium 6.9 mg/dL (7.8-10.44); Carbon Dioxide 21 mmol/L (23-31); Chloride 104 mmol/L (98-107); Glucose 184 mg/dL (80-115); Potassium 4.5 mmol/L (3.5-5.1); Sodium 137 mmol/L (136-145)
[2021-03-19] MEDS ORDERED: Dextrose 50% Abboject 50 ML SYRINGE SLOW IVP PRN (06:03)
[2021-03-19] MEDS ORDERED: Dextrose 5% in Water 1,000 ML IV PRN (06:03)
[2021-03-19] MEDS ORDERED: Heparin 10,000 UNITS/ 10 ML VIAL ONE ×2 (09:06→13:32)
[2021-03-19] MEDS: Heparin 5,000 UNITS/ML VIAL SC SCH ×3 (10:40→23:48)
[2021-03-19 11:44] LABS: SARS-CoV-2 PCR by NAA DETECTED (NotDetected)
[2021-03-19] MEDS ORDERED: PROPOFOL 40 ML ONE (13:26)
[2021-03-19] MEDS ORDERED: Fentanyl 100 MCG/2 ML VIAL ONE (13:26)
[2021-03-19] MEDS ORDERED: EPINEPHrine 1 MG/ML AMP ONE (13:32)
[2021-03-19] MEDS ORDERED: Sodium Chloride 0.9% 10 ML ONE (13:32)
[2021-03-19] MEDS ORDERED: Bupivacaine PF 0.5% 30 ML VIAL ONE (13:32)
[2021-03-19] MEDS ORDERED: Xylocaine 1% w/ Epi 1:100K 10 ML VIAL ONE (13:40)
[2021-03-19] MEDS ORDERED: Ketamine 50 MG/ML (10ML VIAL) ONE (13:41)
[2021-03-19] MEDS ORDERED: PROPOFOL 200 MG/20 ML VIAL ONE (14:52)
[2021-03-19] MEDS ORDERED: Tuberculin PPD 0.1 ML VIAL I-DERMAL SCH (16:15)
[2021-03-19] MEDS ORDERED: READ PPD TEST SITE PO SCH (16:45)
[2021-03-19 18:49] LABS: HBSAB Concentration Less than 8.00 mIU/mL; HBSAg Index 0.25 S/CO (0-0.99); Hep B Core Total Ab Non-Reactive (NonReactive); Hep B Core Total Index 0.09 S/CO (0-0.79); Hep B Surf AB Non-Reactive (NonReactive); Hep B Surf Ag Non-Reactive S/CO (NonReactive); Hep C IgG Ab Non-Reactive (NonReactive); Hep C Index 0.13 S/CO (0-0.79)
[2021-03-19] MEDS ORDERED: Albuterol 200 PUFF (6.7GM INHALER) INH PRN (20:34)
[2021-03-19] MEDS: Albuterol 200 PUFF (6.7GM INHALER) INH SCH (22:46)
[2021-03-19] MEDS: Atorvastatin Calcium 40 MG TAB PO SCH (23:49)
[2021-03-20] MEDS: Albuterol 200 PUFF (6.7GM INHALER) INH SCH ×6 (02:53→23:12)
[2021-03-20 04:08] LABS: #Eosinphils 0.1 thou/uL (0.0-0.7); #Lymphocytes 0.6 thou/uL (1.20-3.40); #Monocytes 0.3 thou/uL (0.11-0.59); %Basophils 0.2 % (0.0-1.0); %Eosinophils 1.5 % (0.0-10.0); %Lymphocytes 15.8 % (21.0-51.0); %Monocytes 7.2 % (0.0-10.0); %Neutrophils 75.3 % (42.0-75.0); Mean Corpuscular HGB CONC 33.1 g/dL (32.0-36.0); Mean Corpuscular Hemoglobin 29.8 pg (27.0-31.0); Mean Corpuscular Volume 89.8 fL (78.0-98.0); Mean Platelet Volume 8.5 fL (7.4-10.4); Platelet Count 226 thou/uL (130-400); RBC Distribution Width 14.8 % (11.5-14.5)
[2021-03-20 04:47] LABS: Anion Gap 14 mmol/L (10-20); BUN (Urea Nitrogen) 44 mg/dL (9.8-20.1); Calc. Creatinine Clearance 25 mL/min (70-130); Calcium 7.3 mg/dL (7.8-10.44); Carbon Dioxide 26 mmol/L (23-31); Chloride 104 mmol/L (98-107); Glucose 110 mg/dL (80-115); Potassium 3.7 mmol/L (3.5-5.1); Sodium 140 mmol/L (136-145)
[2021-03-20] MEDS: Heparin 5,000 UNITS/ML VIAL SC SCH ×3 (08:58→20:36)
[2021-03-20] MEDS: Carvedilol 6.25 MG TAB PO SCH ×2 (08:58→16:37)
[2021-03-20] MEDS ORDERED: Epoetin (ESRD) 20,000 UNITS/ML IVP SCH (13:30)
[2021-03-20] MEDS ORDERED: ceFAZolin 2 GM/Dextrose 50 ML 2 GM in Premix Bag 1 BAG IVPB SCH (14:15)
[2021-03-20] MEDS ORDERED: Carvedilol 6.25 MG TAB PO SCH (17:45)
[2021-03-20] MEDS: Atorvastatin Calcium 40 MG TAB PO SCH (20:38)
[2021-03-20] MEDS: hydrALAZINE 25 MG TAB PO SCH (20:38)
[2021-03-20] MEDS: Dexamethasone 4 mg/ml Vial SLOW IVP SCH (20:38)
[2021-03-21] MEDS: Albuterol 200 PUFF (6.7GM INHALER) INH SCH ×6 (03:30→21:38)
[2021-03-21 06:13] LABS: Anion Gap 13 mmol/L (10-20); BUN (Urea Nitrogen) 23 mg/dL (9.8-20.1); CRP (Inflammatory) 1.98 mg/dL (= or < 0.5); Calc. Creatinine Clearance 30 mL/min (70-130); Calcium 7.5 mg/dL (7.8-10.44); Carbon Dioxide 28 mmol/L (23-31); Chloride 102 mmol/L (98-107); Glucose 173 mg/dL (80-115); Iron 37 ug/dL (50-170); Iron Binding Capacity, Total 225 mcg/dL (265-497); Potassium 4.2 mmol/L (3.5-5.1); Sodium 139 mmol/L (136-145)
[2021-03-21] MEDS: HumaLOG 300 UNITS/3 ML VIAL SC PRN ×3 (07:21→16:13)
[2021-03-21] MEDS ORDERED: Carvedilol 6.25 MG TAB PO SCH (08:00)
[2021-03-21] MEDS: Clopidogrel Bisulfate 75 MG TAB PO SCH (09:15)
[2021-03-21] MEDS: Heparin 5,000 UNITS/ML VIAL SC SCH ×3 (09:16→20:39)
[2021-03-21] MEDS: hydrALAZINE 25 MG TAB PO SCH ×2 (09:16→20:38)
[2021-03-21] MEDS ORDERED: Amlodipine 5 MG TAB PO SCH (15:30)
[2021-03-21] MEDS: Carvedilol 25 MG TAB PO SCH (16:15)
[2021-03-21] MEDS: Dexamethasone 4 mg/ml Vial SLOW IVP SCH (20:37)
[2021-03-21] MEDS: Atorvastatin Calcium 40 MG TAB PO SCH (20:38)
[2021-03-22] MEDS: Albuterol 200 PUFF (6.7GM INHALER) INH SCH ×6 (03:36→22:57)
[2021-03-22 04:23] LABS: Anion Gap 14 mmol/L (10-20); BUN (Urea Nitrogen) 32 mg/dL (9.8-20.1); Calc. Creatinine Clearance 29 mL/min (70-130); Calcium 7.7 mg/dL (7.8-10.44); Carbon Dioxide 26 mmol/L (23-31); Chloride 103 mmol/L (98-107); Glucose 186 mg/dL (80-115); Potassium 4.3 mmol/L (3.5-5.1); Sodium 139 mmol/L (136-145)
[2021-03-22] MEDS: HumaLOG 300 UNITS/3 ML VIAL SC PRN ×3 (06:21→18:07)
[2021-03-22] MEDS: hydrALAZINE 25 MG TAB PO SCH ×2 (08:32→20:24)
[2021-03-22] MEDS: Clopidogrel Bisulfate 75 MG TAB PO SCH (08:33)
[2021-03-22] MEDS: Carvedilol 25 MG TAB PO SCH ×3 (08:34→20:23)
[2021-03-22] MEDS: Amlodipine 5 MG TAB PO SCH (08:34)
[2021-03-22] MEDS: Heparin 5,000 UNITS/ML VIAL SC SCH ×3 (08:42→20:24)
[2021-03-22] MEDS ORDERED: Heparin 10,000 UNITS/ 10 ML VIAL ONE (11:06)
[2021-03-22] MEDS: EPOETIN ALFA-EPBX (ESRD) 10,000 UNIT/ML VIAL IVP SCH ×2 (14:32→16:33)
[2021-03-22] MEDS: Dexamethasone 4 mg/ml Vial SLOW IVP SCH (20:22)
[2021-03-22] MEDS: Guaifenesin DM 100-10/5 ML UDCUP PO SCH (20:22)
[2021-03-22] MEDS: Atorvastatin Calcium 40 MG TAB PO SCH (20:23)
[2021-03-22] MEDS: Minoxidil 2.5 MG TAB PO SCH (20:24)
[2021-03-23] MEDS: Guaifenesin DM 100-10/5 ML UDCUP PO SCH ×6 (00:31→20:11)
[2021-03-23] MEDS: Albuterol 200 PUFF (6.7GM INHALER) INH SCH ×6 (02:37→21:22)
[2021-03-23 05:43] LABS: Anion Gap 11 mmol/L (10-20); BUN (Urea Nitrogen) 18 mg/dL (9.8-20.1); Calc. Creatinine Clearance 41 mL/min (70-130); Calcium 7.9 mg/dL (7.8-10.44); Carbon Dioxide 31 mmol/L (23-31); Chloride 101 mmol/L (98-107); Glucose 245 mg/dL (80-115); Potassium 3.6 mmol/L (3.5-5.1); Sodium 139 mmol/L (136-145)
[2021-03-23] MEDS: HumaLOG 300 UNITS/3 ML VIAL SC PRN ×3 (06:15→16:09)
[2021-03-23] MEDS: Amlodipine 5 MG TAB PO SCH (09:39)
[2021-03-23] MEDS: Carvedilol 25 MG TAB PO SCH ×2 (09:39→20:14)
[2021-03-23] MEDS: Clopidogrel Bisulfate 75 MG TAB PO SCH (09:40)
[2021-03-23] MEDS: Minoxidil 2.5 MG TAB PO SCH ×2 (09:41→20:14)
[2021-03-23] MEDS: Heparin 5,000 UNITS/ML VIAL SC SCH ×3 (09:41→21:22)
[2021-03-23] MEDS: hydrALAZINE 25 MG TAB PO SCH ×2 (09:41→20:13)
[2021-03-23] MEDS: Empagliflozin 25 MG TAB PO SCH (16:09)
[2021-03-23] MEDS: Atorvastatin Calcium 40 MG TAB PO SCH (20:13)
[2021-03-23] MEDS: Dexamethasone 4 mg/ml Vial SLOW IVP SCH (20:15)
[2021-03-24] MEDS: Guaifenesin DM 100-10/5 ML UDCUP PO SCH ×6 (00:11→19:45)
[2021-03-24] MEDS: Albuterol 200 PUFF (6.7GM INHALER) INH SCH ×6 (02:49→22:10)
[2021-03-24] MEDS: HumaLOG 300 UNITS/3 ML VIAL SC PRN ×3 (06:21→19:45)
[2021-03-24] MEDS: Amlodipine 5 MG TAB PO SCH (09:50)
[2021-03-24] MEDS: Empagliflozin 25 MG TAB PO SCH (09:51)
[2021-03-24] MEDS: Carvedilol 25 MG TAB PO SCH ×2 (09:51→19:45)
[2021-03-24] MEDS: Heparin 5,000 UNITS/ML VIAL SC SCH ×3 (09:51→19:46)
[2021-03-24] MEDS: Clopidogrel Bisulfate 75 MG TAB PO SCH (09:51)
[2021-03-24] MEDS: Minoxidil 2.5 MG TAB PO SCH ×2 (09:52→19:45)
[2021-03-24] MEDS: hydrALAZINE 25 MG TAB PO SCH ×2 (09:52→19:46)
[2021-03-24] MEDS: Atorvastatin Calcium 40 MG TAB PO SCH (19:45)
[2021-03-24] MEDS: Dexamethasone 4 mg/ml Vial SLOW IVP SCH (19:46)
[2021-03-25] MEDS: Guaifenesin DM 100-10/5 ML UDCUP PO SCH ×6 (00:35→20:05)
[2021-03-25] MEDS: Albuterol 200 PUFF (6.7GM INHALER) INH SCH ×5 (02:30→21:41)
[2021-03-25] MEDS: HumaLOG 300 UNITS/3 ML VIAL SC PRN ×4 (06:04→20:43)
[2021-03-25] MEDS: Amlodipine 5 MG TAB PO SCH (08:53)
[2021-03-25] MEDS: Minoxidil 2.5 MG TAB PO SCH ×2 (08:53→20:08)
[2021-03-25] MEDS: Clopidogrel Bisulfate 75 MG TAB PO SCH (08:53)
[2021-03-25] MEDS: hydrALAZINE 25 MG TAB PO SCH ×2 (08:53→20:08)
[2021-03-25] MEDS: Heparin 5,000 UNITS/ML VIAL SC SCH ×3 (08:54→20:07)
[2021-03-25] MEDS: Carvedilol 25 MG TAB PO SCH ×2 (08:54→20:07)
[2021-03-25] MEDS: Empagliflozin 25 MG TAB PO SCH (08:55)
[2021-03-25] MEDS ORDERED: Heparin 10,000 UNITS/ 10 ML VIAL ONE (11:09)
[2021-03-25] MEDS: EPOETIN ALFA-EPBX (ESRD) 10,000 UNIT/ML VIAL IVP SCH (11:48)
[2021-03-25 16:55] LABS: #Lymphocytes 1.1 thou/uL (1.20-3.40); #Monocytes 0.8 thou/uL (0.11-0.59); #Neutrophils 5.5 thou/uL (1.40-6.50); %Basophils 0.1 % (0.0-1.0); %Eosinophils 0.2 % (0.0-10.0); %Lymphocytes 15.4 % (21.0-51.0); %Monocytes 10.8 % (0.0-10.0); %Neutrophils 73.5 % (42.0-75.0); Hemoglobin 8.4 g/dL (12.0-16.0); Mean Corpuscular HGB CONC 32.2 g/dL (32.0-36.0); Mean Corpuscular Hemoglobin 28.9 pg (27.0-31.0); Mean Corpuscular Volume 89.7 fL (78.0-98.0); Mean Platelet Volume 10.2 fL (7.4-10.4); Platelet Count 206 thou/uL (130-400); RBC Distribution Width 15.3 % (11.5-14.5); Red Blood Cell (RBC) Count 2.91 mill/uL (4.20-5.40); White Blood Cell (WBC) Count 7.4 thou/uL (4.8-10.8)
[2021-03-25] MEDS: Dexamethasone 4 mg/ml Vial SLOW IVP SCH (20:06)
[2021-03-25] MEDS: Atorvastatin Calcium 40 MG TAB PO SCH (20:08)
[2021-03-26] MEDS: Guaifenesin DM 100-10/5 ML UDCUP PO SCH ×6 (06:09→21:35)
[2021-03-26] MEDS: Albuterol 200 PUFF (6.7GM INHALER) INH SCH ×6 (06:10→21:48)
[2021-03-26] MEDS: HumaLOG 300 UNITS/3 ML VIAL SC PRN ×4 (06:51→21:31)
[2021-03-26] MEDS: Minoxidil 2.5 MG TAB PO SCH ×2 (08:48→21:36)
[2021-03-26] MEDS: Heparin 5,000 UNITS/ML VIAL SC SCH ×3 (08:48→21:35)
[2021-03-26] MEDS: Carvedilol 25 MG TAB PO SCH ×2 (08:48→21:35)
[2021-03-26] MEDS: hydrALAZINE 25 MG TAB PO SCH ×2 (08:49→21:36)
[2021-03-26] MEDS: Amlodipine 5 MG TAB PO SCH (08:49)
[2021-03-26] MEDS: Dexamethasone 4 MG TAB PO SCH (08:49)
[2021-03-26] MEDS: Clopidogrel Bisulfate 75 MG TAB PO SCH (08:50)
[2021-03-26] MEDS: Empagliflozin 25 MG TAB PO SCH (10:44)
[2021-03-26] MEDS ORDERED: Lantus 1000 UNITS/10 ML VIAL SC SCH (21:00)
[2021-03-26] MEDS: Atorvastatin Calcium 40 MG TAB PO SCH (21:35)
[2021-03-27] MEDS: Guaifenesin DM 100-10/5 ML UDCUP PO SCH ×6 (01:43→20:43)
[2021-03-27] MEDS: Albuterol 200 PUFF (6.7GM INHALER) INH SCH ×6 (02:43→21:41)
[2021-03-27] MEDS: HumaLOG 300 UNITS/3 ML VIAL SC PRN ×3 (05:47→20:40)
[2021-03-27] MEDS: Dexamethasone 4 MG TAB PO SCH (08:37)
[2021-03-27] MEDS: Heparin 5,000 UNITS/ML VIAL SC SCH ×3 (08:37→20:44)
[2021-03-27] MEDS: Clopidogrel Bisulfate 75 MG TAB PO SCH (08:37)
[2021-03-27] MEDS: Carvedilol 25 MG TAB PO SCH ×2 (08:38→20:43)
[2021-03-27] MEDS: Minoxidil 2.5 MG TAB PO SCH ×2 (08:39→20:43)
[2021-03-27] MEDS: Empagliflozin 25 MG TAB PO SCH (08:44)
[2021-03-27] MEDS: Amlodipine 5 MG TAB PO SCH (08:46)
[2021-03-27] MEDS: hydrALAZINE 25 MG TAB PO SCH ×2 (08:47→20:44)
[2021-03-27] MEDS ORDERED: Heparin 10,000 UNITS/ 10 ML VIAL ONE (09:44)
[2021-03-27] MEDS: EPOETIN ALFA-EPBX (ESRD) 10,000 UNIT/ML VIAL IVP SCH (12:01)
[2021-03-27 17:04] LABS: Anion Gap 13 mmol/L (10-20); BUN (Urea Nitrogen) 5 mg/dL (9.8-20.1); Calc. Creatinine Clearance 121 mL/min (70-130); Calcium 8.6 mg/dL (7.8-10.44); Carbon Dioxide 31 mmol/L (23-31); Chloride 100 mmol/L (98-107); Glucose 123 mg/dL (80-115); Potassium 3.1 mmol/L (3.5-5.1); Sodium 141 mmol/L (136-145)
[2021-03-27] MEDS: Atorvastatin Calcium 40 MG TAB PO SCH (20:44)
[2021-03-27] MEDS ORDERED: Lantus 1000 UNITS/10 ML VIAL SC SCH (21:00)
[2021-03-28] MEDS: Guaifenesin DM 100-10/5 ML UDCUP PO SCH ×6 (00:15→20:37)
[2021-03-28] MEDS: Albuterol 200 PUFF (6.7GM INHALER) INH SCH ×6 (03:17→21:49)
[2021-03-28] MEDS: HumaLOG 300 UNITS/3 ML VIAL SC PRN ×3 (06:04→20:45)
[2021-03-28] MEDS: Dexamethasone 4 MG TAB PO SCH (09:00)
[2021-03-28] MEDS: Empagliflozin 25 MG TAB PO SCH (09:01)
[2021-03-28] MEDS: Minoxidil 2.5 MG TAB PO SCH ×2 (09:01→20:40)
[2021-03-28] MEDS: Clopidogrel Bisulfate 75 MG TAB PO SCH (09:01)
[2021-03-28] MEDS: hydrALAZINE 25 MG TAB PO SCH ×2 (09:01→20:39)
[2021-03-28] MEDS: Amlodipine 5 MG TAB PO SCH (09:01)
[2021-03-28] MEDS: Carvedilol 25 MG TAB PO SCH ×2 (09:01→20:38)
[2021-03-28] MEDS: Heparin 5,000 UNITS/ML VIAL SC SCH ×3 (09:05→20:42)
[2021-03-28] MEDS ORDERED: Potassium Chloride 20 MEQ TAB PO SCH (14:30)
[2021-03-28 14:41] LABS: Anion Gap 7 mmol/L (10-20); BUN (Urea Nitrogen) 39 mg/dL (9.8-20.1); Calc. Creatinine Clearance 27 mL/min (70-130); Calcium 7.6 mg/dL (7.8-10.44); Carbon Dioxide 36 mmol/L (23-31); Chloride 101 mmol/L (98-107); Glucose 277 mg/dL (80-115); Potassium 4.2 mmol/L (3.5-5.1); Sodium 140 mmol/L (136-145)
[2021-03-28] MEDS: Atorvastatin Calcium 40 MG TAB PO SCH (20:38)
[2021-03-28] MEDS: Lantus 1000 UNITS/10 ML VIAL SC SCH (20:44)
[2021-03-29] MEDS: Guaifenesin DM 100-10/5 ML UDCUP PO SCH ×6 (00:45→19:43)
[2021-03-29] MEDS: Albuterol 200 PUFF (6.7GM INHALER) INH SCH ×6 (03:46→23:30)
[2021-03-29] MEDS: HumaLOG 300 UNITS/3 ML VIAL SC PRN ×3 (06:39→19:47)
[2021-03-29] MEDS: Heparin 5,000 UNITS/ML VIAL SC SCH ×3 (07:43→19:45)
[2021-03-29] MEDS: Carvedilol 25 MG TAB PO SCH ×2 (07:46→19:45)
[2021-03-29] MEDS: Dexamethasone 4 MG TAB PO SCH (07:46)
[2021-03-29] MEDS: hydrALAZINE 25 MG TAB PO SCH ×2 (07:46→19:45)
[2021-03-29] MEDS: Empagliflozin 25 MG TAB PO SCH (07:49)
[2021-03-29] MEDS: Amlodipine 5 MG TAB PO SCH (07:49)
[2021-03-29] MEDS: Minoxidil 2.5 MG TAB PO SCH ×2 (07:50→19:46)
[2021-03-29] MEDS: Clopidogrel Bisulfate 75 MG TAB PO SCH (07:50)
[2021-03-29] MEDS ORDERED: Heparin 10,000 UNITS/ 10 ML VIAL ONE (09:23)
[2021-03-29] MEDS: Lantus 1000 UNITS/10 ML VIAL SC SCH ×2 (10:14→19:47)
[2021-03-29] MEDS: EPOETIN ALFA-EPBX (ESRD) 10,000 UNIT/ML VIAL IVP SCH ×2 (17:48→18:36)
[2021-03-29] MEDS: Atorvastatin Calcium 40 MG TAB PO SCH (19:44)
[2021-03-30] MEDS: Guaifenesin DM 100-10/5 ML UDCUP PO SCH ×6 (01:06→22:27)
[2021-03-30] MEDS: Albuterol 200 PUFF (6.7GM INHALER) INH SCH ×6 (01:06→22:28)
[2021-03-30] MEDS: HumaLOG 300 UNITS/3 ML VIAL SC PRN ×4 (06:02→21:25)
[2021-03-30] MEDS: Dexamethasone 4 MG TAB PO SCH (08:06)
[2021-03-30] MEDS: hydrALAZINE 25 MG TAB PO SCH ×2 (08:07→21:25)
[2021-03-30] MEDS: Minoxidil 2.5 MG TAB PO SCH ×2 (08:07→21:25)
[2021-03-30] MEDS: Clopidogrel Bisulfate 75 MG TAB PO SCH (08:08)
[2021-03-30] MEDS: Carvedilol 25 MG TAB PO SCH ×2 (08:08→21:24)
[2021-03-30] MEDS: Empagliflozin 25 MG TAB PO SCH (08:08)
[2021-03-30] MEDS: Amlodipine 5 MG TAB PO SCH (08:08)
[2021-03-30] MEDS: Heparin 5,000 UNITS/ML VIAL SC SCH ×3 (08:10→21:33)
[2021-03-30] MEDS: Lantus 1000 UNITS/10 ML VIAL SC SCH ×2 (08:10→21:25)
[2021-03-30] MEDS: Atorvastatin Calcium 40 MG TAB PO SCH (21:25)
[2021-03-31] MEDS: Guaifenesin DM 100-10/5 ML UDCUP PO SCH ×7 (00:54→23:41)
[2021-03-31] MEDS: Albuterol 200 PUFF (6.7GM INHALER) INH SCH ×7 (04:14→23:36)
[2021-03-31] MEDS: HumaLOG 300 UNITS/3 ML VIAL SC PRN ×3 (06:15→22:27)
[2021-03-31] MEDS: Carvedilol 25 MG TAB PO SCH ×2 (08:32→20:14)
[2021-03-31] MEDS: Dexamethasone 4 MG TAB PO SCH (08:32)
[2021-03-31] MEDS: Clopidogrel Bisulfate 75 MG TAB PO SCH (08:32)
[2021-03-31] MEDS: hydrALAZINE 25 MG TAB PO SCH ×2 (08:32→20:13)
[2021-03-31] MEDS: Amlodipine 5 MG TAB PO SCH (08:33)
[2021-03-31] MEDS: Heparin 5,000 UNITS/ML VIAL SC SCH ×3 (08:33→20:14)
[2021-03-31] MEDS: Minoxidil 2.5 MG TAB PO SCH ×2 (08:33→20:14)
[2021-03-31] MEDS: Lantus 1000 UNITS/10 ML VIAL SC SCH ×2 (08:34→22:27)
[2021-03-31] MEDS: Empagliflozin 25 MG TAB PO SCH (09:00)
[2021-03-31] MEDS ORDERED: CEFAZOLIN 2 GM, Admixture Fee 1 EACH in Sodium Chloride 0.9% 100 ML IVPB SCH (11:15)
[2021-03-31] MEDS: Atorvastatin Calcium 40 MG TAB PO SCH (20:14)
[2021-04-01] MEDS: Albuterol 200 PUFF (6.7GM INHALER) INH SCH ×6 (02:41→22:27)
[2021-04-01] MEDS: Guaifenesin DM 100-10/5 ML UDCUP PO SCH ×5 (04:09→20:18)
[2021-04-01 07:33] LABS: #Lymphocytes 1.1 thou/uL (1.20-3.40); #Monocytes 0.8 thou/uL (0.11-0.59); %Basophils 0.4 % (0.0-1.0); %Eosinophils 0.2 % (0.0-10.0); %Lymphocytes 16.1 % (21.0-51.0); %Monocytes 10.9 % (0.0-10.0); %Neutrophils 72.4 % (42.0-75.0); Hemoglobin 7.9 g/dL (12.0-16.0); Mean Corpuscular HGB CONC 31.1 g/dL (32.0-36.0); Mean Corpuscular Hemoglobin 29.6 pg (27.0-31.0); Mean Corpuscular Volume 95.3 fL (78.0-98.0); Mean Platelet Volume 7.9 fL (7.4-10.4); Platelet Count 272 thou/uL (130-400); RBC Distribution Width 17.4 % (11.5-14.5); Red Blood Cell (RBC) Count 2.66 mill/uL (4.20-5.40); White Blood Cell (WBC) Count 6.9 thou/uL (4.8-10.8)
[2021-04-01 07:58] LABS: Anion Gap 12 mmol/L (10-20); BUN (Urea Nitrogen) 71 mg/dL (9.8-20.1); Calc. Creatinine Clearance 23 mL/min (70-130); Calcium 7.6 mg/dL (7.8-10.44); Carbon Dioxide 30 mmol/L (23-31); Chloride 102 mmol/L (98-107); Glucose 134 mg/dL (80-115); Potassium 4.8 mmol/L (3.5-5.1); Sodium 139 mmol/L (136-145)
[2021-04-01] MEDS: Amlodipine 5 MG TAB PO SCH (08:24)
[2021-04-01] MEDS: Minoxidil 2.5 MG TAB PO SCH ×2 (08:24→20:18)
[2021-04-01] MEDS: Dexamethasone 4 MG TAB PO SCH (08:24)
[2021-04-01] MEDS: Heparin 5,000 UNITS/ML VIAL SC SCH ×3 (08:25→20:18)
[2021-04-01] MEDS: Carvedilol 25 MG TAB PO SCH ×2 (08:25→20:19)
[2021-04-01] MEDS: hydrALAZINE 25 MG TAB PO SCH ×2 (08:25→20:19)
[2021-04-01] MEDS: Empagliflozin 25 MG TAB PO SCH (08:25)
[2021-04-01] MEDS: Clopidogrel Bisulfate 75 MG TAB PO SCH (08:25)
[2021-04-01] MEDS: Lantus 1000 UNITS/10 ML VIAL SC SCH ×2 (08:26→20:19)
[2021-04-01] MEDS ORDERED: Heparin 10,000 UNITS/ 10 ML VIAL ONE (09:24)
[2021-04-01] MEDS: EPOETIN ALFA-EPBX (ESRD) 10,000 UNIT/ML VIAL IVP SCH (12:00)
[2021-04-01] MEDS ORDERED: Heparin 5,000 UNITS/ML VIAL ONE (13:15)
[2021-04-01] MEDS ORDERED: Protamine Sulfate 50 MG/5 ML VIAL ONE (13:15)
[2021-04-01] MEDS ORDERED: Lidocaine 2% w/Epinephrine 1:200K 20 ML VIAL ONE (13:15)
[2021-04-01] MEDS ORDERED: Bupivacaine PF 0.5% 30 ML VIAL ONE (13:15)
[2021-04-01] MEDS ORDERED: Famotidine/PF 20 mg/2ml Vial ONE (13:25)
[2021-04-01] MEDS ORDERED: Midazolam HCl 2 mg/2 ml Vial ONE (13:25)
[2021-04-01] MEDS ORDERED: Fentanyl 250 MCG/5 ML VIAL ONE (13:25)
[2021-04-01] MEDS ORDERED: Propofol 500 MG/50 ML VIAL ONE (13:26)
[2021-04-01] MEDS ORDERED: Ondansetron PF 4 MG/2 ML Vial ONE (13:43)
[2021-04-01] MEDS ORDERED: Metoclopramide HCl 10 MG/2 ML VIAL ONE (13:43)
[2021-04-01] MEDS ORDERED: PROPOFOL 200 MG/20 ML VIAL ONE (13:43)
[2021-04-01] MEDS ORDERED: Bupivacaine HCl 0.5%/Epinephrine 1:200,000/PF 30 ml Vial ONE (13:43)
[2021-04-01] MEDS ORDERED: Lidocaine 1% PF 5 ML VIAL ONE (13:43)
[2021-04-01] MEDS ORDERED: Ondansetron HCl/PF 4 MG/2 ML Vial IVP PRN (15:11)
[2021-04-01] MEDS: HumaLOG 300 UNITS/3 ML VIAL SC PRN (15:58)
[2021-04-01] MEDS: Atorvastatin Calcium 40 MG TAB PO SCH (20:18)
[2021-04-02] MEDS: Guaifenesin DM 100-10/5 ML UDCUP PO SCH ×6 (00:50→20:23)
[2021-04-02] MEDS: Albuterol 200 PUFF (6.7GM INHALER) INH SCH ×6 (02:23→23:46)
[2021-04-02] MEDS: HumaLOG 300 UNITS/3 ML VIAL SC PRN ×3 (05:44→20:31)
[2021-04-02] MEDS: Clopidogrel Bisulfate 75 MG TAB PO SCH (08:14)
[2021-04-02] MEDS: hydrALAZINE 25 MG TAB PO SCH ×2 (08:14→20:26)
[2021-04-02] MEDS: Amlodipine 5 MG TAB PO SCH (08:15)
[2021-04-02] MEDS: Carvedilol 25 MG TAB PO SCH ×2 (08:16→20:23)
[2021-04-02] MEDS: Minoxidil 2.5 MG TAB PO SCH ×2 (08:16→20:28)
[2021-04-02] MEDS: Empagliflozin 25 MG TAB PO SCH (08:18)
[2021-04-02] MEDS: Heparin 5,000 UNITS/ML VIAL SC SCH ×3 (08:18→20:24)
[2021-04-02] MEDS: Dexamethasone 4 MG TAB PO SCH (08:18)
[2021-04-02] MEDS: Lantus 1000 UNITS/10 ML VIAL SC SCH ×2 (08:19→20:29)
[2021-04-02] MEDS: Atorvastatin Calcium 40 MG TAB PO SCH (20:23)
[2021-04-03] MEDS: Guaifenesin DM 100-10/5 ML UDCUP PO SCH ×6 (00:30→20:24)
[2021-04-03] MEDS: Albuterol 200 PUFF (6.7GM INHALER) INH SCH ×6 (03:54→17:25)
[2021-04-03 05:27] LABS: Anion Gap 19 mmol/L (10-20); BUN (Urea Nitrogen) 66 mg/dL (9.8-20.1); Calc. Creatinine Clearance 19 mL/min (70-130); Calcium 6.9 mg/dL (7.8-10.44); Carbon Dioxide 21 mmol/L (23-31); Chloride 102 mmol/L (98-107); Glucose 101 mg/dL (80-115); Potassium 4.6 mmol/L (3.5-5.1); Sodium 137 mmol/L (136-145)
[2021-04-03] MEDS: Dexamethasone 4 MG TAB PO SCH (08:15)
[2021-04-03] MEDS: Empagliflozin 25 MG TAB PO SCH (08:15)
[2021-04-03] MEDS: Lantus 1000 UNITS/10 ML VIAL SC SCH ×2 (08:17→20:35)
[2021-04-03] MEDS ORDERED: Heparin 10,000 UNITS/ 10 ML VIAL ONE (09:28)
[2021-04-03 10:15] VITALS: BMI 30.1
[2021-04-03] MEDS: Heparin 5,000 UNITS/ML VIAL SC SCH ×3 (13:10→20:35)
[2021-04-03] MEDS: hydrALAZINE 25 MG TAB PO SCH ×2 (13:14→20:25)
[2021-04-03] MEDS: Minoxidil 2.5 MG TAB PO SCH ×2 (13:14→20:25)
[2021-04-03] MEDS: Amlodipine 5 MG TAB PO SCH (13:17)
[2021-04-03] MEDS: Carvedilol 25 MG TAB PO SCH ×2 (13:20→20:26)
[2021-04-03] MEDS: Clopidogrel Bisulfate 75 MG TAB PO SCH (13:20)
[2021-04-03] MEDS: EPOETIN ALFA-EPBX (ESRD) 10,000 UNIT/ML VIAL IVP SCH (13:21)
[2021-04-03] MEDS: HumaLOG 300 UNITS/3 ML VIAL SC PRN (17:26)
[2021-04-03] MEDS: Atorvastatin Calcium 40 MG TAB PO SCH (20:25)
[2021-04-04] MEDS: Guaifenesin DM 100-10/5 ML UDCUP PO SCH ×6 (00:37→20:00)
[2021-04-04] MEDS: Albuterol 200 PUFF (6.7GM INHALER) INH SCH ×7 (02:25→22:52)
[2021-04-04] MEDS: hydrALAZINE 25 MG TAB PO SCH ×2 (07:33→19:58)
[2021-04-04] MEDS: Carvedilol 25 MG TAB PO SCH ×2 (07:34→19:58)
[2021-04-04] MEDS: Amlodipine 5 MG TAB PO SCH (07:35)
[2021-04-04] MEDS: Clopidogrel Bisulfate 75 MG TAB PO SCH (07:36)
[2021-04-04] MEDS: Heparin 5,000 UNITS/ML VIAL SC SCH ×3 (07:37→20:00)
[2021-04-04] MEDS: Lantus 1000 UNITS/10 ML VIAL SC SCH ×2 (07:37→20:04)
[2021-04-04] MEDS: Dexamethasone 4 MG TAB PO SCH (07:37)
[2021-04-04] MEDS: Empagliflozin 25 MG TAB PO SCH (07:37)
[2021-04-04] MEDS: Minoxidil 2.5 MG TAB PO SCH ×2 (07:38→20:02)
[2021-04-04] MEDS: HumaLOG 300 UNITS/3 ML VIAL SC PRN ×2 (11:49→16:33)
[2021-04-04] MEDS: Atorvastatin Calcium 40 MG TAB PO SCH (20:00)
[2021-04-05] MEDS: Guaifenesin DM 100-10/5 ML UDCUP PO SCH ×4 (00:35→14:20)
[2021-04-05] MEDS: Albuterol 200 PUFF (6.7GM INHALER) INH SCH ×4 (03:22→14:01)
[2021-04-05 04:55] LABS: Anion Gap 15 mmol/L (10-20); BUN (Urea Nitrogen) 64 mg/dL (9.8-20.1); Calc. Creatinine Clearance 21 mL/min (70-130); Calcium 7.4 mg/dL (7.8-10.44); Carbon Dioxide 26 mmol/L (23-31); Chloride 100 mmol/L (98-107); Glucose 196 mg/dL (80-115); Potassium 4.8 mmol/L (3.5-5.1); Sodium 136 mmol/L (136-145)
[2021-04-05] MEDS ORDERED: Heparin 10,000 UNITS/ 10 ML VIAL ONE (08:31)
[2021-04-05] MEDS: Dexamethasone 4 MG TAB PO SCH (08:50)
[2021-04-05] MEDS: Amlodipine 5 MG TAB PO SCH (08:51)
[2021-04-05] MEDS: Carvedilol 25 MG TAB PO SCH (08:52)
[2021-04-05] MEDS: Clopidogrel Bisulfate 75 MG TAB PO SCH (08:52)
[2021-04-05] MEDS: Heparin 5,000 UNITS/ML VIAL SC SCH (08:54)
[2021-04-05] MEDS: Empagliflozin 25 MG TAB PO SCH (08:54)
[2021-04-05] MEDS: hydrALAZINE 25 MG TAB PO SCH (08:57)
[2021-04-05] MEDS: Lantus 1000 UNITS/10 ML VIAL SC SCH (08:58)
[2021-04-05] MEDS: Minoxidil 2.5 MG TAB PO SCH (08:59)
[2021-04-05 12:07] VITALS: BP 135/59; TEMP 97.4
[2021-04-05] MEDS: EPOETIN ALFA-EPBX (ESRD) 10,000 UNIT/ML VIAL IVP SCH (13:04)
== END 2021-04-05 14:17 | disposition home or self-care (01) | DRG 673 ==
LOC: ERS 17:20 → 2NO 20:32 → 2SW 03-19 20:03
PROVIDERS: ADMIT Student in an Organized Health Care Education/Training Program; ATTEND Internal Medicine
PROC: 8E0ZXY6 Isolation (ICD-10-PCS; 2021-03-18)
PROC: 0JH63XZ Insertion of Tunneled Vascular Access Device into Chest Subcutaneous Tissue and Fascia, Percutaneous Approach (ICD-10-PCS; principal; 2021-03-19)
PROC: B5181ZA Fluoroscopy of Superior Vena Cava using Low Osmolar Contrast, Guidance (ICD-10-PCS; 2021-03-19)
PROC: 02HV33Z Insertion of Infusion Device into Superior Vena Cava, Percutaneous Approach (ICD-10-PCS; 2021-03-19)
PROC: B548ZZA Ultrasonography of Superior Vena Cava, Guidance (ICD-10-PCS; 2021-03-19)
PROC: 5A1D70Z Performance of Urinary Filtration, Intermittent, Less than 6 Hours Per Day (ICD-10-PCS; 2021-03-20)
PROC: 5A1D70Z Performance of Urinary Filtration, Intermittent, Less than 6 Hours Per Day (ICD-10-PCS; 2021-03-22)
PROC: 5A1D70Z Performance of Urinary Filtration, Intermittent, Less than 6 Hours Per Day (ICD-10-PCS; 2021-03-22)
PROC: 5A1D70Z Performance of Urinary Filtration, Intermittent, Less than 6 Hours Per Day (ICD-10-PCS; 2021-03-25)
PROC: 5A1D70Z Performance of Urinary Filtration, Intermittent, Less than 6 Hours Per Day (ICD-10-PCS; 2021-03-27)
PROC: 5A1D70Z Performance of Urinary Filtration, Intermittent, Less than 6 Hours Per Day (ICD-10-PCS; 2021-03-29)
PROC: 3E0333Z Introduction of Anti-inflammatory into Peripheral Vein, Percutaneous Approach (ICD-10-PCS; 2021-03-30)
PROC: 031B0ZF Bypass Right Radial Artery to Lower Arm Vein, Open Approach (ICD-10-PCS; 2021-04-01)
PROC: 5A1D70Z Performance of Urinary Filtration, Intermittent, Less than 6 Hours Per Day (ICD-10-PCS; 2021-04-03)
PROC: 5A1D70Z Performance of Urinary Filtration, Intermittent, Less than 6 Hours Per Day (ICD-10-PCS; 2021-04-05)
DX: N17.9 Acute kidney failure, unspecified (principal); J96.01 Acute respiratory failure with hypoxia; U07.1 COVID-19; E87.2 Acidosis; I13.0 Hypertensive heart and chronic kidney disease with heart failure and stage 1 through stage 4 chronic kidney disease, or unspecified chronic kidney disease; I50.32 Chronic diastolic (congestive) heart failure; N18.6 End stage renal disease; E11.22 Type 2 diabetes mellitus with diabetic chronic kidney disease; G47.33 Obstructive sleep apnea (adult) (pediatric); E11.21 Type 2 diabetes mellitus with diabetic nephropathy; E88.09 Other disorders of plasma-protein metabolism, not elsewhere classified; E78.5 Hyperlipidemia, unspecified; E83.51 Hypocalcemia; D63.1 Anemia in chronic kidney disease; I25.10 Atherosclerotic heart disease of native coronary artery without angina pectoris; E87.5 Hyperkalemia; Z90.49 Acquired absence of other specified parts of digestive tract; Z88.8 Allergy status to other drugs, medicaments and biological substances; Z79.899 Other long term (current) drug therapy; Z83.3 Family history of diabetes mellitus; Z86.73 Personal history of transient ischemic attack (TIA), and cerebral infarction without residual deficits
CPT/HCPCS: 36415; 36416; 71045; 71046; 80048; 80053; 82728; 83540; 83550; 83880; 84100; 84484; 85025; 86140; 86580; 86704; 86706; 86803; 87340; 90935; 93005; 93970; 94640; 96374; C1751; C1752; C1776; G0257; J0171; J1100; J1642; J1644; J1815; J1940; J2250; J2405; J2704; J2720; J2765; J3010; J3490; J7620; J7626; J8540; Q5105; S0020; S0028; U0003; U0005

== ENCOUNTER 2021-07-31 07:56 | Day surgery (SDC) | payer OTHER, MEDICAID ==
[2021-07-29 13:26] VITALS: BMI 28.9
[2021-07-31] MEDS ORDERED: Fentanyl 100 MCG/2 ML VIAL ONE (08:36)
[2021-07-31] MEDS ORDERED: Lidocaine 1% PF 5 ML VIAL ONE (08:37)
[2021-07-31] MEDS ORDERED: Sodium Bicarbonate 2.5 MEQ/5 ML VIAL ONE (08:37)
[2021-07-31] MEDS ORDERED: diphenhydrAMINE 50 MG/ML VIAL ONE (08:37)
[2021-07-31 14:55] VITALS: BP 91/53; TEMP 98.4
== END 2021-07-31 11:15 | disposition home or self-care (01) ==
LOC: SPEC 07:56
PROVIDERS: ATTEND Specialist
PROC: 057Y3ZZ Dilation of Upper Vein, Percutaneous Approach (ICD-10-PCS; principal; 2021-07-31)
PROC: B51W1ZZ Fluoroscopy of Dialysis Shunt/Fistula using Low Osmolar Contrast (ICD-10-PCS; 2021-07-31)
DX: I87.1 Compression of vein (principal); I13.2 Hypertensive heart and chronic kidney disease with heart failure and with stage 5 chronic kidney disease, or end stage renal disease; E11.22 Type 2 diabetes mellitus with diabetic chronic kidney disease; N18.6 End stage renal disease; I50.9 Heart failure, unspecified; G47.33 Obstructive sleep apnea (adult) (pediatric); I25.10 Atherosclerotic heart disease of native coronary artery without angina pectoris; E78.5 Hyperlipidemia, unspecified; Z23 Encounter for immunization; Z86.73 Personal history of transient ischemic attack (TIA), and cerebral infarction without residual deficits; Z79.02 Long term (current) use of antithrombotics/antiplatelets; Z79.84 Long term (current) use of oral hypoglycemic drugs; Z79.899 Other long term (current) drug therapy; Z88.6 Allergy status to analgesic agent; Z99.2 Dependence on renal dialysis
CPT/HCPCS: 36901; 90732; G0009; 90471; C1725; J1200; J3010

== ENCOUNTER 2021-08-05 15:09 | Inpatient (IN) | payer OTHER, MEDICAID ==
[2021-08-05 15:33] LABS: #Eosinphils 0.1 thou/uL (0.0-0.7); #Lymphocytes 1.8 thou/uL (1.20-3.40); #Monocytes 0.5 thou/uL (0.11-0.59); #Neutrophils 5.1 thou/uL (1.40-6.50); %Basophils 0.4 % (0.0-1.0); %Lymphocytes 23.5 % (21.0-51.0); %Neutrophils 68.2 % (42.0-75.0); Hemoglobin 13.3 g/dL (12.0-16.0); Mean Corpuscular HGB CONC 33.4 g/dL (32.0-36.0); Mean Corpuscular Hemoglobin 32.2 pg (27.0-31.0); Mean Corpuscular Volume 96.4 fL (78.0-98.0); Mean Platelet Volume 8.5 fL (7.4-10.4); Platelet Count 220 thou/uL (130-400); RBC Distribution Width 13.9 % (11.5-14.5); Red Blood Cell (RBC) Count 4.14 mill/uL (4.20-5.40); White Blood Cell (WBC) Count 7.5 thou/uL (4.8-10.8)
[2021-08-05 15:48] LABS: ALT (SGPT) 67 U/L (8-55); AST (SGOT) 61 U/L (5-34); Albumin 4.4 g/dL (3.4-4.8); Alkaline Phosphatase 102 U/L (40-110); Anion Gap 23 mmol/L (10-20); BUN (Urea Nitrogen) 73 mg/dL (9.8-20.1); Calc. Creatinine Clearance 0 mL/min (70-130); Calcium 8.9 mg/dL (7.8-10.44); Carbon Dioxide 24 mmol/L (23-31); Chloride 93 mmol/L (98-107); Globulin 4.2 g/dL (2.4-3.5); Glucose 261 mg/dL (80-115); Potassium 5.6 mmol/L (3.5-5.1); Protein, Total 8.6 g/dL (5.8-8.1); Sodium 134 mmol/L (136-145)
[2021-08-05 16:04] LABS: Prothrombin Time 13.3 sec (12.0-14.7)
[2021-08-05] MEDS ORDERED: Aspirin 325 MG TAB ONE (17:44)
[2021-08-05] MEDS ORDERED: Acetaminophen 650 MG Suppository PR PRN (18:54)
[2021-08-05] MEDS ORDERED: hydrALAZINE 20 MG/ML VIAL SLOW IVP PRN (18:54)
[2021-08-05] MEDS ORDERED: Ondansetron ODT 4 MG TAB PO PRN (18:54)
[2021-08-05] MEDS ORDERED: Ondansetron PF 4 MG/2 ML Vial IVP PRN (18:54)
[2021-08-05] MEDS ORDERED: Dextrose 5% in Water 1,000 ML IV PRN (19:09)
[2021-08-05] MEDS ORDERED: Dextrose 50% Abboject 50 ML SYRINGE SLOW IVP PRN (19:09)
[2021-08-05] MEDS ORDERED: Insulin Regular 300 UNITS/3 ML VIAL SC PRN (19:09)
[2021-08-05 22:08] VITALS: BMI 26.8
[2021-08-05] MEDS: Acetaminophen 325 MG TAB PO PRN (22:18)
[2021-08-05] MEDS: Atorvastatin Calcium 40 MG TAB PO SCH (22:18)
[2021-08-05] MEDS: Heparin 5,000 UNITS/ML VIAL SC SCH (22:18)
[2021-08-06 05:43] LABS: #Eosinphils 0.1 thou/uL (0.0-0.7); #Lymphocytes 2.2 thou/uL (1.20-3.40); #Monocytes 0.5 thou/uL (0.11-0.59); #Neutrophils 3.5 thou/uL (1.40-6.50); %Basophils 0.2 % (0.0-1.0); %Eosinophils 1.6 % (0.0-10.0); %Lymphocytes 34.8 % (21.0-51.0); %Monocytes 8.1 % (0.0-10.0); %Neutrophils 55.2 % (42.0-75.0); Hemoglobin 12.2 g/dL (12.0-16.0); Mean Corpuscular HGB CONC 32.4 g/dL (32.0-36.0); Mean Corpuscular Hemoglobin 32.1 pg (27.0-31.0); Mean Corpuscular Volume 98.9 fL (78.0-98.0); Mean Platelet Volume 8.6 fL (7.4-10.4); Platelet Count 198 thou/uL (130-400); RBC Distribution Width 14.1 % (11.5-14.5); Red Blood Cell (RBC) Count 3.81 mill/uL (4.20-5.40); White Blood Cell (WBC) Count 6.3 thou/uL (4.8-10.8)
[2021-08-06 06:04] LABS: Anion Gap 20 mmol/L (10-20); BUN (Urea Nitrogen) 85 mg/dL (9.8-20.1); Calc. Creatinine Clearance 9 mL/min (70-130); Calcium 8.5 mg/dL (7.8-10.44); Carbon Dioxide 26 mmol/L (23-31); Cardiac Risk 2.4 (Less than 4.5); Chloride 94 mmol/L (98-107); Cholesterol 143 mg/dl (< 200 Desired); Glucose 160 mg/dL (80-115); HDL Cholesterol 60 mg/dL (>60 Neg Risk); LDL Cholesterol, Calculated 52 mg/dL; Potassium 4.9 mmol/L (3.5-5.1); Sodium 135 mmol/L (136-145); Triglycerides 154 mg/dL (Less than 150)
[2021-08-06] MEDS: Clopidogrel Bisulfate 75 MG TAB PO SCH (08:30)
[2021-08-06] MEDS: Heparin 5,000 UNITS/ML VIAL SC SCH ×2 (08:30→19:56)
[2021-08-06] MEDS: Aspirin 81 mg Enteric Coated Tablet PO SCH (08:30)
[2021-08-06 09:25] LABS: Hemoglobin A1c 8.9 % (4.0-6.0)
[2021-08-06] MEDS: Atorvastatin Calcium 40 MG TAB PO SCH (19:57)
[2021-08-06] MEDS: Acetaminophen 325 MG TAB PO PRN (19:57)
[2021-08-06] MEDS ORDERED: Melatonin 3 MG TAB PO SCH (21:41)
[2021-08-06] MEDS ORDERED: hydrOXYzine 10 MG TAB PO SCH (21:41)
[2021-08-06] MEDS: Icosapent Ethyl 1 GM CAPSULE PO SCH ×2 (22:03→22:37)
[2021-08-06] MEDS ORDERED: Cyclobenzaprine 10 MG TAB PO SCH (22:30)
[2021-08-07 02:38] LABS: Direct LDL Cholesterol 61 mg/dL (0-99)
[2021-08-07 04:31] LABS: #Basophils 0.1 thou/uL (0.0-0.2); #Eosinphils 0.1 thou/uL (0.0-0.7); #Lymphocytes 2.1 thou/uL (1.20-3.40); #Monocytes 0.5 thou/uL (0.11-0.59); %Basophils 0.8 % (0.0-1.0); %Eosinophils 1.4 % (0.0-10.0); %Lymphocytes 30.7 % (21.0-51.0); %Monocytes 7.3 % (0.0-10.0); %Neutrophils 59.8 % (42.0-75.0); Hemoglobin 13.7 g/dL (12.0-16.0); Mean Corpuscular HGB CONC 33.1 g/dL (32.0-36.0); Mean Corpuscular Hemoglobin 32.6 pg (27.0-31.0); Mean Corpuscular Volume 98.5 fL (78.0-98.0); Mean Platelet Volume 8.4 fL (7.4-10.4); Platelet Count 214 thou/uL (130-400); Red Blood Cell (RBC) Count 4.21 mill/uL (4.20-5.40); White Blood Cell (WBC) Count 6.7 thou/uL (4.8-10.8)
[2021-08-07 04:50] LABS: Anion Gap 17 mmol/L (10-20); BUN (Urea Nitrogen) 36 mg/dL (9.8-20.1); Calc. Creatinine Clearance 14 mL/min (70-130); Carbon Dioxide 27 mmol/L (23-31); Chloride 97 mmol/L (98-107); Sodium 136 mmol/L (136-145)
[2021-08-07 04:51] LABS: Calcium 9.1 mg/dL (7.8-10.44); Glucose 145 mg/dL (80-115)
[2021-08-07] MEDS: Clopidogrel Bisulfate 75 MG TAB PO SCH (08:16)
[2021-08-07] MEDS: Heparin 5,000 UNITS/ML VIAL SC SCH ×2 (08:16→21:43)
[2021-08-07] MEDS: Aspirin 81 mg Enteric Coated Tablet PO SCH (08:16)
[2021-08-07] MEDS ORDERED: Icosapent Ethyl 1 GM CAPSULE PO SCH (09:00)
[2021-08-07] MEDS ORDERED: Tetrahydrozoline 0.05% OPTH 15 ML BOT EA EYE SCH (21:00)
[2021-08-07] MEDS: Atorvastatin Calcium 40 MG TAB PO SCH (21:39)
[2021-08-07] MEDS: Tetrahydrozoline 0.05% OPTH 15 ML BOT EA EYE SCH (21:40)
[2021-08-07] MEDS: Icosapent Ethyl 1 GM CAPSULE PO SCH (21:42)
[2021-08-08 05:22] LABS: #Basophils 0.1 thou/uL (0.0-0.2); #Eosinphils 0.2 thou/uL (0.0-0.7); #Lymphocytes 2.3 thou/uL (1.20-3.40); #Monocytes 0.9 thou/uL (0.11-0.59); #Neutrophils 4.6 thou/uL (1.40-6.50); %Basophils 0.8 % (0.0-1.0); %Eosinophils 2.3 % (0.0-10.0); %Lymphocytes 29.1 % (21.0-51.0); %Monocytes 10.6 % (0.0-10.0); %Neutrophils 57.2 % (42.0-75.0); Hemoglobin 12.2 g/dL (12.0-16.0); Mean Corpuscular Hemoglobin 32.9 pg (27.0-31.0); Mean Corpuscular Volume 99.7 fL (78.0-98.0); Mean Platelet Volume 8.6 fL (7.4-10.4); Platelet Count 210 thou/uL (130-400); RBC Distribution Width 14.3 % (11.5-14.5); Red Blood Cell (RBC) Count 3.72 mill/uL (4.20-5.40)
[2021-08-08 05:39] LABS: Anion Gap 20 mmol/L (10-20); BUN (Urea Nitrogen) 65 mg/dL (9.8-20.1); Calc. Creatinine Clearance 10 mL/min (70-130); Calcium 8.5 mg/dL (7.8-10.44); Carbon Dioxide 24 mmol/L (23-31); Chloride 97 mmol/L (98-107); Glucose 145 mg/dL (80-115); Potassium 5.4 mmol/L (3.5-5.1); Sodium 136 mmol/L (136-145)
[2021-08-08] MEDS: Aspirin 81 mg Enteric Coated Tablet PO SCH (09:40)
[2021-08-08] MEDS: Icosapent Ethyl 1 GM CAPSULE PO SCH ×2 (09:40→20:39)
[2021-08-08] MEDS: Clopidogrel Bisulfate 75 MG TAB PO SCH (09:40)
[2021-08-08] MEDS ORDERED: Heparin 10,000 UNITS/ 10 ML VIAL ONE (10:02)
[2021-08-08] MEDS ORDERED: PROPOFOL 20 ML ONE (11:02)
[2021-08-08] MEDS: Heparin 5,000 UNITS/ML VIAL SC SCH ×2 (14:33→20:39)
[2021-08-08] MEDS: Tetrahydrozoline 0.05% OPTH 15 ML BOT EA EYE SCH ×2 (14:33→20:41)
[2021-08-08] MEDS: Insulin Regular 300 UNITS/3 ML VIAL SC PRN (17:42)
[2021-08-08] MEDS: Acetaminophen 325 MG TAB PO PRN (20:38)
[2021-08-08] MEDS: Atorvastatin Calcium 40 MG TAB PO SCH (20:39)
[2021-08-09] MEDS: Acetaminophen 325 MG TAB PO PRN ×3 (00:46→23:56)
[2021-08-09 05:58] LABS: #Basophils 0.1 thou/uL (0.0-0.2); #Eosinphils 0.1 thou/uL (0.0-0.7); #Lymphocytes 2.6 thou/uL (1.20-3.40); #Monocytes 0.7 thou/uL (0.11-0.59); #Neutrophils 5.5 thou/uL (1.40-6.50); %Basophils 0.5 % (0.0-1.0); %Eosinophils 1.6 % (0.0-10.0); %Lymphocytes 29.1 % (21.0-51.0); %Neutrophils 60.7 % (42.0-75.0); Hemoglobin 12.8 g/dL (12.0-16.0); Mean Corpuscular HGB CONC 32.6 g/dL (32.0-36.0); Mean Corpuscular Hemoglobin 33.1 pg (27.0-31.0); Mean Platelet Volume 8.4 fL (7.4-10.4); Platelet Count 201 thou/uL (130-400); RBC Distribution Width 14.5 % (11.5-14.5); Red Blood Cell (RBC) Count 3.86 mill/uL (4.20-5.40)
[2021-08-09 06:26] LABS: Anion Gap 20 mmol/L (10-20); BUN (Urea Nitrogen) 46 mg/dL (9.8-20.1); Calc. Creatinine Clearance 11 mL/min (70-130); Calcium 8.6 mg/dL (7.8-10.44); Carbon Dioxide 23 mmol/L (23-31); Chloride 96 mmol/L (98-107); Glucose 130 mg/dL (80-115); Potassium 4.3 mmol/L (3.5-5.1); Sodium 135 mmol/L (136-145)
[2021-08-09] MEDS: Tetrahydrozoline 0.05% OPTH 15 ML BOT EA EYE SCH ×2 (08:47→21:15)
[2021-08-09] MEDS: Icosapent Ethyl 1 GM CAPSULE PO SCH ×2 (08:48→21:15)
[2021-08-09] MEDS: Aspirin 81 mg Enteric Coated Tablet PO SCH (08:48)
[2021-08-09] MEDS: Clopidogrel Bisulfate 75 MG TAB PO SCH (08:48)
[2021-08-09] MEDS: Heparin 5,000 UNITS/ML VIAL SC SCH ×2 (08:48→21:15)
[2021-08-09] MEDS: Insulin Regular 300 UNITS/3 ML VIAL SC PRN (11:36)
[2021-08-09] MEDS: Atorvastatin Calcium 40 MG TAB PO SCH (21:15)
[2021-08-10 05:33] LABS: #Eosinphils 0.2 thou/uL (0.0-0.7); #Lymphocytes 2.1 thou/uL (1.20-3.40); #Monocytes 0.7 thou/uL (0.11-0.59); #Neutrophils 4.5 thou/uL (1.40-6.50); %Basophils 0.3 % (0.0-1.0); %Eosinophils 2.2 % (0.0-10.0); %Lymphocytes 28.1 % (21.0-51.0); %Neutrophils 60.3 % (42.0-75.0); Hemoglobin 11.6 g/dL (12.0-16.0); Mean Corpuscular HGB CONC 32.3 g/dL (32.0-36.0); Mean Corpuscular Hemoglobin 32.4 pg (27.0-31.0); Mean Platelet Volume 8.8 fL (7.4-10.4); Platelet Count 189 thou/uL (130-400); RBC Distribution Width 14.4 % (11.5-14.5); Red Blood Cell (RBC) Count 3.58 mill/uL (4.20-5.40); White Blood Cell (WBC) Count 7.4 thou/uL (4.8-10.8)
[2021-08-10 05:53] LABS: Anion Gap 18 mmol/L (10-20); BUN (Urea Nitrogen) 68 mg/dL (9.8-20.1); Calc. Creatinine Clearance 10 mL/min (70-130); Carbon Dioxide 24 mmol/L (23-31); Chloride 98 mmol/L (98-107); Glucose 217 mg/dL (80-115); Potassium 4.4 mmol/L (3.5-5.1); Sodium 136 mmol/L (136-145)
[2021-08-10] MEDS: Clopidogrel Bisulfate 75 MG TAB PO SCH (09:07)
[2021-08-10] MEDS: Acetaminophen 325 MG TAB PO PRN (09:07)
[2021-08-10] MEDS: Icosapent Ethyl 1 GM CAPSULE PO SCH ×2 (09:08→20:27)
[2021-08-10] MEDS: Aspirin 81 mg Enteric Coated Tablet PO SCH (09:08)
[2021-08-10] MEDS: Tetrahydrozoline 0.05% OPTH 15 ML BOT EA EYE SCH ×2 (09:09→20:28)
[2021-08-10] MEDS: Heparin 5,000 UNITS/ML VIAL SC SCH ×2 (09:10→20:27)
[2021-08-10] MEDS: Insulin Regular 300 UNITS/3 ML VIAL SC PRN (12:08)
[2021-08-10] MEDS: Atorvastatin Calcium 40 MG TAB PO SCH (20:26)
[2021-08-11] MEDS: Heparin 5,000 UNITS/ML VIAL SC SCH (07:16)
[2021-08-11] MEDS: Icosapent Ethyl 1 GM CAPSULE PO SCH (07:16)
[2021-08-11] MEDS: Clopidogrel Bisulfate 75 MG TAB PO SCH (07:16)
[2021-08-11] MEDS: Aspirin 81 mg Enteric Coated Tablet PO SCH (07:16)
[2021-08-11] MEDS: Tetrahydrozoline 0.05% OPTH 15 ML BOT EA EYE SCH (07:17)
[2021-08-11] MEDS ORDERED: Lidocaine 1% w/Epinephrine 1:100K 20 ML VIAL ONE (08:01)
[2021-08-11] MEDS ORDERED: Heparin 10,000 UNITS/ 10 ML VIAL ONE (09:57)
[2021-08-11] MEDS: Acetaminophen 325 MG TAB PO PRN (13:54)
[2021-08-11 16:15] VITALS: BP 121/57; TEMP 98.3
== END 2021-08-11 16:14 | disposition home or self-care (01) | DRG 40 ==
LOC: ERS 15:09 → NEURO 18:40 → OBSVTOIN 08-06 16:39
PROVIDERS: ADMIT Family Medicine; ATTEND Internal Medicine
PROC: B24BZZ4 Ultrasonography of Heart with Aorta, Transesophageal (ICD-10-PCS; principal; 2021-08-08)
PROC: 0JH602Z Insertion of Monitoring Device into Chest Subcutaneous Tissue and Fascia, Open Approach (ICD-10-PCS; 2021-08-11)
DX: I63.511 Cerebral infarction due to unspecified occlusion or stenosis of right middle cerebral artery (principal); N18.6 End stage renal disease; I13.2 Hypertensive heart and chronic kidney disease with heart failure and with stage 5 chronic kidney disease, or end stage renal disease; I50.32 Chronic diastolic (congestive) heart failure; Z20.822 Contact with and (suspected) exposure to COVID-19; R29.810 Facial weakness; E11.22 Type 2 diabetes mellitus with diabetic chronic kidney disease; G47.33 Obstructive sleep apnea (adult) (pediatric); R29.701 NIHSS score 1; E78.00 Pure hypercholesterolemia, unspecified; N32.81 Overactive bladder; G83.24 Monoplegia of upper limb affecting left nondominant side; R47.1 Dysarthria and anarthria; E78.1 Pure hyperglyceridemia; R47.01 Aphasia; E87.5 Hyperkalemia; Z60.2 Problems related to living alone; D63.1 Anemia in chronic kidney disease; E78.5 Hyperlipidemia, unspecified; Z99.2 Dependence on renal dialysis; Z90.49 Acquired absence of other specified parts of digestive tract; Z79.02 Long term (current) use of antithrombotics/antiplatelets; Z88.6 Allergy status to analgesic agent; Z79.899 Other long term (current) drug therapy
CPT/HCPCS: 33285; 36415; 36416; 70450; 70551; 71045; 80048; 80053; 80061; 83036; 83721; 84443; 84484; 85025; 85610; 85730; 90935; 93005; 93010; 93306; 93312; 93880; 94760; C1764; G0257; G0378; J1644; J1815; J2405; J2704; U0003; U0005

== ENCOUNTER 2022-03-15 02:26 | Emergency (ER) | payer OTHER ==
[2022-03-15] MEDS ORDERED: HYDROcodone/Acetaminophen 10/325 mg Tablet ONE (05:40)
[2022-03-15 06:57] LABS: #Basophils 0.1 thou/uL (0.0-0.2); #Eosinphils 0.1 thou/uL (0.0-0.7); #Lymphocytes 2.2 thou/uL (1.20-3.40); #Monocytes 0.6 thou/uL (0.11-0.59); #Neutrophils 6.2 thou/uL (1.40-6.50); %Basophils 0.6 % (0.0-1.0); %Eosinophils 1.1 % (0.0-10.0); %Lymphocytes 23.9 % (21.0-51.0); %Monocytes 6.4 % (0.0-10.0); %Neutrophils 68.1 % (42.0-75.0); Mean Corpuscular HGB CONC 34.3 g/dL (32.0-36.0); Mean Platelet Volume 8.6 fL (7.4-10.4); Platelet Count 197 10x3/uL (130-400); RBC Distribution Width 12.7 % (11.5-14.5); Red Blood Cell (RBC) Count 3.62 mill/uL (4.20-5.40); White Blood Cell (WBC) Count 9.1 10x3/uL (4.8-10.8)
[2022-03-15 07:05] LABS: ALT (SGPT) 23 U/L (8-55); AST (SGOT) 19 U/L (5-34); Albumin 4.2 g/dL (3.4-4.8); Alkaline Phosphatase 76 U/L (40-110); Anion Gap 24 mmol/L (10-20); BUN (Urea Nitrogen) 52 mg/dL (9.8-20.1); Bilirubin, Total 0.6 mg/dL (0.2-1.2); CK (CPK) 34 U/L (29-168); Calc. Creatinine Clearance 0 mL/min (70-130); Calcium 8.4 mg/dL (7.8-10.44); Carbon Dioxide 23 mmol/L (23-31); Chloride 96 mmol/L (98-107); Estimated GFR 5; Glucose 90 mg/dL (80-115); Lipase 42 U/L (8-78); Potassium 4.4 mmol/L (3.5-5.1); Protein, Total 8.2 g/dL (5.8-8.1); Sodium 139 mmol/L (136-145)
== END 2022-03-15 08:57 | disposition home or self-care (01) ==
LOC: ERS 02:26
DX: M25.512 Pain in left shoulder (principal); E11.9 Type 2 diabetes mellitus without complications; E78.00 Pure hypercholesterolemia, unspecified; I10 Essential (primary) hypertension; Z79.899 Other long term (current) drug therapy; Z79.4 Long term (current) use of insulin
CPT/HCPCS: 36415; 80053; 82550; 83690; 84484; 85025; 93005

== ENCOUNTER 2022-04-13 06:41 | Inpatient (IN) | payer OTHER, MEDICAID ==
[2022-04-13 07:24] LABS: #Eosinphils 0.1 thou/uL (0.0-0.7); #Lymphocytes 1.8 thou/uL (1.20-3.40); #Monocytes 0.4 thou/uL (0.11-0.59); #Neutrophils 5.9 thou/uL (1.40-6.50); %Basophils 0.4 % (0.0-1.0); %Eosinophils 1.2 % (0.0-10.0); %Lymphocytes 21.7 % (21.0-51.0); %Monocytes 5.1 % (0.0-10.0); %Neutrophils 71.6 % (42.0-75.0); Hemoglobin 12.5 g/dL (12.0-16.0); Mean Corpuscular HGB CONC 32.6 g/dL (32.0-36.0); Mean Corpuscular Hemoglobin 35.1 pg (27.0-31.0); Mean Platelet Volume 7.9 fL (7.4-10.4); Platelet Count 278 10x3/uL (130-400); RBC Distribution Width 14.4 % (11.5-14.5); Red Blood Cell (RBC) Count 3.55 mill/uL (4.20-5.40); White Blood Cell (WBC) Count 8.3 10x3/uL (4.8-10.8)
[2022-04-13 07:38] LABS: Acetaminophen Less than 10.0 mcg/mL (10.0-30.0); Alcohol Less than 10 mg/dL (Less than 10); Salicylate Less than 8.0 mg/dL (15.0-30.0)
[2022-04-13 07:39] LABS: ALT (SGPT) 25 U/L (8-55); AST (SGOT) 19 U/L (5-34); Alkaline Phosphatase 90 U/L (40-110); Anion Gap 25 mmol/L (10-20); BUN (Urea Nitrogen) 65 mg/dL (9.8-20.1); Bilirubin, Total 0.8 mg/dL (0.2-1.2); CK (CPK) 44 U/L (29-168); Calc. Creatinine Clearance 0 mL/min (70-130); Calcium 7.8 mg/dL (7.8-10.44); Carbon Dioxide 22 mmol/L (23-31); Chloride 97 mmol/L (98-107); Estimated GFR 5; Globulin 3.6 g/dL (2.4-3.5); Glucose 85 mg/dL (80-115); Lipase 34 U/L (8-78); Potassium 4.2 mmol/L (3.5-5.1); Protein, Total 7.6 g/dL (5.8-8.1); Sodium 140 mmol/L (136-145)
[2022-04-13 07:42] LABS: Prothrombin Time 13.3 sec (12.0-14.7)
[2022-04-13 07:43] LABS: PTT 28.5 sec (22.9-36.1)
[2022-04-13] MEDS ORDERED: Heparin 10,000 UNITS/ 10 ML VIAL ONE (10:27)
[2022-04-13] MEDS ORDERED: Acetaminophen 650 MG Suppository PR PRN (13:00)
[2022-04-13] MEDS ORDERED: Acetaminophen 325 MG TAB PO PRN (13:00)
[2022-04-13] MEDS ORDERED: hydrALAZINE 20 MG/ML VIAL SLOW IVP PRN (13:00)
[2022-04-13 17:44] VITALS: BMI 29.0
[2022-04-13] MEDS ORDERED: Dextrose 5% in Water 1,000 ML IV PRN (21:56)
[2022-04-13] MEDS ORDERED: Dextrose 50% Abboject 50 ML SYRINGE SLOW IVP PRN (21:56)
[2022-04-13] MEDS ORDERED: Insulin Regular 300 UNITS/3 ML VIAL SC PRN ×2 (21:56)
[2022-04-14] MEDS: Heparin 5,000 UNITS/ML VIAL SC SCH ×3 (00:25→21:11)
[2022-04-14] MEDS: Atorvastatin Calcium 40 MG TAB PO SCH ×2 (00:26→21:11)
[2022-04-14 05:34] LABS: #Eosinphils 0.1 thou/uL (0.0-0.7); #Monocytes 0.5 thou/uL (0.11-0.59); #Neutrophils 4.2 thou/uL (1.40-6.50); %Basophils 0.1 % (0.0-1.0); %Eosinophils 1.4 % (0.0-10.0); %Lymphocytes 29.1 % (21.0-51.0); %Monocytes 6.6 % (0.0-10.0); %Neutrophils 62.8 % (42.0-75.0); Hemoglobin 12.3 g/dL (12.0-16.0); Mean Corpuscular HGB CONC 33.1 g/dL (32.0-36.0); Mean Corpuscular Hemoglobin 36.1 pg (27.0-31.0); Mean Platelet Volume 7.8 fL (7.4-10.4); Platelet Count 250 10x3/uL (130-400); RBC Distribution Width 14.6 % (11.5-14.5); Red Blood Cell (RBC) Count 3.41 mill/uL (4.20-5.40); White Blood Cell (WBC) Count 6.8 10x3/uL (4.8-10.8)
[2022-04-14 06:14] LABS: Anion Gap 15 mmol/L (10-20); BUN (Urea Nitrogen) 22 mg/dL (9.8-20.1); Calc. Creatinine Clearance 14 mL/min (70-130); Calcium 8.1 mg/dL (7.8-10.44); Carbon Dioxide 30 mmol/L (23-31); Cardiac Risk 2.2 (Less than 4.5); Chloride 97 mmol/L (98-107); Cholesterol 139 mg/dl (< 200 Desired); Estimated GFR 11; Glucose 103 mg/dL (80-115); HDL Cholesterol 62 mg/dL (>60 Neg Risk); LDL Cholesterol, Calculated 51 mg/dL; Potassium 3.3 mmol/L (3.5-5.1); Sodium 139 mmol/L (136-145); Triglycerides 129 mg/dL (Less than 150)
[2022-04-14] MEDS: Aspirin 81 mg Enteric Coated Tablet PO SCH (09:01)
[2022-04-14] MEDS: Clopidogrel Bisulfate 75 MG TAB PO SCH (09:02)
[2022-04-14] MEDS: Sevelamer Carbonate 800 MG TAB PO SCH ×3 (09:02→17:40)
[2022-04-14] MEDS ORDERED: Potassium Chloride 20 MEQ TAB PO SCH (09:15)
[2022-04-14 13:58] LABS: T4 7.4 ug/dL (4.87-11.72); Thyroid Stimulating Hormone 2.8117 uIU/mL (0.35-4.94)
[2022-04-15 05:27] LABS: #Eosinphils 0.1 thou/uL (0.0-0.7); #Lymphocytes 2.2 thou/uL (1.20-3.40); #Monocytes 0.5 thou/uL (0.11-0.59); #Neutrophils 3.9 thou/uL (1.40-6.50); %Basophils 0.7 % (0.0-1.0); %Eosinophils 1.4 % (0.0-10.0); %Lymphocytes 32.6 % (21.0-51.0); %Monocytes 7.5 % (0.0-10.0); %Neutrophils 57.9 % (42.0-75.0); Hemoglobin 12.3 g/dL (12.0-16.0); Mean Corpuscular HGB CONC 32.7 g/dL (32.0-36.0); Mean Corpuscular Hemoglobin 35.7 pg (27.0-31.0); Mean Platelet Volume 7.9 fL (7.4-10.4); Platelet Count 255 10x3/uL (130-400); RBC Distribution Width 14.4 % (11.5-14.5); Red Blood Cell (RBC) Count 3.45 mill/uL (4.20-5.40); White Blood Cell (WBC) Count 6.8 10x3/uL (4.8-10.8)
[2022-04-15 05:52] LABS: Anion Gap 16 mmol/L (10-20); BUN (Urea Nitrogen) 41 mg/dL (9.8-20.1); Calc. Creatinine Clearance 9 mL/min (70-130); Calcium 7.7 mg/dL (7.8-10.44); Carbon Dioxide 29 mmol/L (23-31); Chloride 98 mmol/L (98-107); Estimated GFR 7; Glucose 99 mg/dL (80-115); Potassium 4.4 mmol/L (3.5-5.1); Sodium 139 mmol/L (136-145)
[2022-04-15] MEDS: Sevelamer Carbonate 800 MG TAB PO SCH ×3 (08:40→22:28)
[2022-04-15] MEDS: Heparin 5,000 UNITS/ML VIAL SC SCH ×2 (08:40→22:29)
[2022-04-15] MEDS: glipiZIDE 10 MG TAB PO SCH (08:41)
[2022-04-15] MEDS ORDERED: Heparin 10,000 UNITS/ 10 ML VIAL ONE (09:00)
[2022-04-15] MEDS: Aspirin 81 mg Enteric Coated Tablet PO SCH (10:38)
[2022-04-15] MEDS: Clopidogrel Bisulfate 75 MG TAB PO SCH (10:38)
[2022-04-15] MEDS: Atorvastatin Calcium 40 MG TAB PO SCH (22:28)
[2022-04-16 06:40] LABS: HEX PHOS LA Tube 1 36.9 SEC; HEX PHOS LA Tube 2 37.3 SEC
[2022-04-16 06:42] LABS: Factor VIII Test 270.2 % ACTIVE (56-157)
[2022-04-16] MEDS: Clopidogrel Bisulfate 75 MG TAB PO SCH (08:43)
[2022-04-16] MEDS: Aspirin 81 mg Enteric Coated Tablet PO SCH (08:43)
[2022-04-16] MEDS: glipiZIDE 10 MG TAB PO SCH (08:43)
[2022-04-16] MEDS: Heparin 5,000 UNITS/ML VIAL SC SCH ×2 (08:45→20:31)
[2022-04-16] MEDS: Sevelamer Carbonate 800 MG TAB PO SCH ×3 (08:45→16:50)
[2022-04-16 10:23] LABS: D-Dimer Test 1.17 *mcg/mL (0.27-0.43); INR-International Normal Ratio 0.9; PTT 33.9 sec (22.9-36.1); Prothrombin Time 12.6 sec (12.0-14.7)
[2022-04-16 10:24] LABS: Protein C Activity 110 % (78-152)
[2022-04-16 14:15] LABS: Cardiolipin IgA Ab 3.1 APL-U/mL (<14 Negative); Cardiolipin IgM Ab 9.3 MPL-U/mL (<10 Negative); EliA APS New Method **** NEW METHOD ****
[2022-04-16 14:18] LABS: #Eosinphils 0.1 thou/uL (0.0-0.7); #Monocytes 0.5 thou/uL (0.11-0.59); #Neutrophils 5.3 thou/uL (1.40-6.50); %Basophils 0.4 % (0.0-1.0); %Eosinophils 1.1 % (0.0-10.0); %Monocytes 6.6 % (0.0-10.0); %Neutrophils 66.9 % (42.0-75.0); Hemoglobin 12.6 g/dL (12.0-16.0); Mean Corpuscular Hemoglobin 36.1 pg (27.0-31.0); Mean Platelet Volume 8.2 fL (7.4-10.4); Platelet Count 233 10x3/uL (130-400); White Blood Cell (WBC) Count 7.9 10x3/uL (4.8-10.8)
[2022-04-16 14:41] LABS: Anion Gap 19 mmol/L (10-20); BUN (Urea Nitrogen) 38 mg/dL (9.8-20.1); Calc. Creatinine Clearance 10 mL/min (70-130); Calcium 8.2 mg/dL (7.8-10.44); Carbon Dioxide 26 mmol/L (23-31); Chloride 97 mmol/L (98-107); Estimated GFR 8; Glucose 74 mg/dL (80-115); Potassium 4.5 mmol/L (3.5-5.1); Sodium 137 mmol/L (136-145)
[2022-04-16] MEDS: Atorvastatin Calcium 40 MG TAB PO SCH (20:31)
[2022-04-17 05:29] LABS: #Basophils 0.1 thou/uL (0.0-0.2); #Eosinphils 0.1 thou/uL (0.0-0.7); #Lymphocytes 2.1 thou/uL (1.20-3.40); #Monocytes 0.7 thou/uL (0.11-0.59); #Neutrophils 4.9 thou/uL (1.40-6.50); %Basophils 0.7 % (0.0-1.0); %Eosinophils 1.7 % (0.0-10.0); %Lymphocytes 26.6 % (21.0-51.0); %Monocytes 8.7 % (0.0-10.0); %Neutrophils 62.3 % (42.0-75.0); Hemoglobin 12.5 g/dL (12.0-16.0); Mean Corpuscular HGB CONC 32.4 g/dL (32.0-36.0); Mean Corpuscular Hemoglobin 35.9 pg (27.0-31.0); Mean Platelet Volume 8.1 fL (7.4-10.4); Platelet Count 237 10x3/uL (130-400); Red Blood Cell (RBC) Count 3.48 mill/uL (4.20-5.40); White Blood Cell (WBC) Count 7.8 10x3/uL (4.8-10.8)
[2022-04-17 05:48] LABS: Anion Gap 19 mmol/L (10-20); BUN (Urea Nitrogen) 59 mg/dL (9.8-20.1); Calc. Creatinine Clearance 9 mL/min (70-130); Calcium 7.8 mg/dL (7.8-10.44); Carbon Dioxide 23 mmol/L (23-31); Chloride 98 mmol/L (98-107); Estimated GFR 6; Glucose 69 mg/dL (80-115); Potassium 5.3 mmol/L (3.5-5.1); Sodium 135 mmol/L (136-145)
[2022-04-17 08:58] LABS: HBSAg Index 0.36 S/CO (0-0.99); Hep B Surf Ag Non-Reactive S/CO (NonReactive)
[2022-04-17 09:03] LABS: HBSAB Concentration 30.69 mIU/mL; Hep B Surf AB Reactive (NonReactive)
[2022-04-17] MEDS: Sevelamer Carbonate 800 MG TAB PO SCH ×3 (12:49→17:24)
[2022-04-17] MEDS: Aspirin 81 mg Enteric Coated Tablet PO SCH (14:05)
[2022-04-17] MEDS: Clopidogrel Bisulfate 75 MG TAB PO SCH (14:05)
[2022-04-17] MEDS: Heparin 5,000 UNITS/ML VIAL SC SCH (14:06)
[2022-04-17 16:04] VITALS: BP 108/57; TEMP 98
== END 2022-04-17 18:20 | disposition home or self-care (01) | DRG 64 ==
LOC: ERS 06:41 → SUATTDRO 06:41 → ERHOLD 09:46 → NEURO 17:15
PROVIDERS: ADMIT Hospitalist; ATTEND Internal Medicine
PROC: 5A1D70Z Performance of Urinary Filtration, Intermittent, Less than 6 Hours Per Day (ICD-10-PCS; principal; 2022-04-13)
DX: I63.511 Cerebral infarction due to unspecified occlusion or stenosis of right middle cerebral artery (principal); D66 Hereditary factor VIII deficiency; N18.6 End stage renal disease; I12.0 Hypertensive chronic kidney disease with stage 5 chronic kidney disease or end stage renal disease; E78.00 Pure hypercholesterolemia, unspecified; G47.33 Obstructive sleep apnea (adult) (pediatric); R29.703 NIHSS score 3; R47.81 Slurred speech; R29.810 Facial weakness; E11.22 Type 2 diabetes mellitus with diabetic chronic kidney disease; E03.9 Hypothyroidism, unspecified; E78.5 Hyperlipidemia, unspecified; E87.5 Hyperkalemia; D63.1 Anemia in chronic kidney disease; E11.649 Type 2 diabetes mellitus with hypoglycemia without coma; Z88.6 Allergy status to analgesic agent; Z79.899 Other long term (current) drug therapy; Z79.84 Long term (current) use of oral hypoglycemic drugs; Z90.49 Acquired absence of other specified parts of digestive tract; Z99.2 Dependence on renal dialysis
CPT/HCPCS: 36415; 36416; 70450; 70551; 71045; 80048; 80053; 80061; 80307; 82140; 82550; 83090; 83690; 83880; 84436; 84443; 84484; 85025; 85240; 85300; 85303; 85305; 85307; 85379; 85598; 85610; 85730; 86147; 86706; 87340; 90935; 93005; 93306; 93880; G0257; J1644; U0003; U0005

== ENCOUNTER 2022-09-15 13:16 | Outpatient (CLI) | payer OTHER | END 2022-09-15 13:17 | disposition home or self-care (01) | LOC: BICMAMMO 13:16 | PROVIDERS: ATTEND Family Medicine | DX: Z12.31 Encounter for screening mammogram for malignant neoplasm of breast (principal) | CPT/HCPCS: 77063; 77067 ==